=== PATIENT | female | born 1950 | race African-American/Black ===

== ENCOUNTER 2020-08-18 10:27 | Outpatient (REF) | payer MEDICARE, SELFPAY | END 2020-08-18 10:28 | disposition home or self-care (01) | LOC: HO.LAB 10:27 | PROVIDERS: Visit Provider Internal Medicine | DX: Z20.828 Contact with and (suspected) exposure to other viral communicable diseases (principal) | CPT/HCPCS: 36415; C9803; U0003 ==

== ENCOUNTER 2021-07-12 10:45 | Outpatient (REF) | payer MEDICARE, SELFPAY | END 2021-07-12 10:46 | disposition home or self-care (01) | LOC: HO.LAB 10:45 | PROVIDERS: PCP Family Medicine; Visit Provider Internal Medicine | DX: Z20.822 Contact with and (suspected) exposure to COVID-19 (principal) | CPT/HCPCS: C9803; U0003; U0005 ==

== ENCOUNTER 2021-11-21 09:49 | Outpatient (REF) | payer OTHER, SELFPAY ==
--- NOTE | ~2021-11-21 | XR_ITS ---
EXAMINATION: XR HAND, RIGHT XR HAND, LEFT CLINICAL INFORMATION: Rheumatoid arthritis. COMPARISON: None TECHNIQUE: 3 views of each hand. FINDINGS: RIGHT HAND: Osteopenia. Prominent cyst or chronic erosion of the distal scaphoid. There is mild narrowing of the radiocarpal and mid carpal joint. Cysts or chronic erosion of the proximal hamate and the ulnar aspect of the triquetrum. There is soft tissue swelling of the 3rd PIP joint and possibly the 2nd PIP joint. No significant or asymmetric joint space narrowing or active erosion. No suspicious soft tissue calcification. No fracture. LEFT HAND: Osteopenia. No definite erosions. Mild degenerative changes of the triscaphoid articulation, MCP and IP joints most prominently involving the 5th DIP joint with dorsal osteophyte. No suspicious soft tissue calcification. No fracture. XR/XR hand RT 2V IMPRESSION: Right hand: Degenerative cysts or chronic erosions of the carpus as described. There is soft tissue swelling particularly about the 3rd PIP joint with no active erosion. Osteopenia. Left hand: Mild degenerative changes and osteopenia with no active erosion or acute abnormality.
--- NOTE | ~2021-11-21 | XR_ITS ---
EXAMINATION: XR CHEST CLINICAL INFORMATION: The cardiac murmur COMPARISON: Previous chest x-ray September 2006 TECHNIQUE: 2 views of the chest were obtained. FINDINGS: The cardiac silhouette does not appear enlarged. The ascending thoracic aorta may be prominent. Hilar and mediastinal contours are otherwise unremarkable. The lungs are clear. There is no pleural effusion or pneumothorax. There is soft tissue calcification adjacent to the right greater tuberosity. Bony structures are otherwise unremarkable. XR/XR chest 2V IMPRESSION: Normal size cardiac silhouette. Question increasing prominence of the ascending thoracic aorta.
--- NOTE | ~2021-11-21 | XR_ITS ---
EXAMINATION: XR HAND, RIGHT XR HAND, LEFT CLINICAL INFORMATION: Rheumatoid arthritis. COMPARISON: None TECHNIQUE: 3 views of each hand. FINDINGS: RIGHT HAND: Osteopenia. Prominent cyst or chronic erosion of the distal scaphoid. There is mild narrowing of the radiocarpal and mid carpal joint. Cysts or chronic erosion of the proximal hamate and the ulnar aspect of the triquetrum. There is soft tissue swelling of the 3rd PIP joint and possibly the 2nd PIP joint. No significant or asymmetric joint space narrowing or active erosion. No suspicious soft tissue calcification. No fracture. LEFT HAND: Osteopenia. No definite erosions. Mild degenerative changes of the triscaphoid articulation, MCP and IP joints most prominently involving the 5th DIP joint with dorsal osteophyte. No suspicious soft tissue calcification. No fracture. XR/XR hand LT min 3V IMPRESSION: Right hand: Degenerative cysts or chronic erosions of the carpus as described. There is soft tissue swelling particularly about the 3rd PIP joint with no active erosion. Osteopenia. Left hand: Mild degenerative changes and osteopenia with no active erosion or acute abnormality.
[2021-11-21 11:36] LABS: MANUAL DIFF FLAG NO
[2021-11-21 11:54] LABS: Basophils Percent Auto 0.3 % (0-2); Eosinophils Absolute Auto 0.3 X10*3/uL (0.0-0.4); Eosinophils Percent Auto 2.7 % (0-4); Hematocrit 40.9 % (37.0-47.0); Hemoglobin 13.2 g/dl (12.0-16.0); Imm Gran Abs Auto 0.08 X10*3/uL (0.00-0.03); Imm Gran Pct Auto 0.8 % (0.0-0.4); Lymphocytes Percent Auto 30.8 % (20-40); Mean Corpuscular HGB Conc 32.3 g/dl (31.0-35.0); Mean Corpuscular Hemoglobin 26.2 pg (27.0-33.0); Mean Corpuscular Volume 81.2 fL (80.0-98.0); Mean Platelet Volume 10.1 fL (9.4-12.3); Monocytes Absolute Auto 0.8 X10*3/uL (0.1-1.2); Neutrophils Absolute Auto 5.6 x10*3/uL (2.0-8.3); Neutrophils Percent Auto 57.4 % (45-73); Platelet Count 236 X10*3/uL (160-400); Red Blood Count 5.04 X10*6/uL (4.20-5.50); Red Cell Distribution Width 14.6 % (11.0-16.0); White Blood Count 9.8 X10*3/uL (4.8-10.8)
[2021-11-21 12:17] LABS: Alanine Aminotransferase 18 U/L (0-31); Albumin Level 4.1 g/dL (3.5-5.0); Alkaline Phosphatase 130 U/L (39-117); Anion Gap 14 (12-20); Aspartate Amino Transferase 16 U/L (5-31); Bilirubin Total 0.3 mg/dL (0.0-1.0); Blood Urea Nitrogen 17 mg/dL (9-16); C Reactive Protein 2.28 mg/dL (< or = 0.50); Calcium 10.4 mg/dL (8.4-10.2); Carbon Dioxide 26 mmol/L (22-29); Chloride 104 mmol/L (96-108); Estimated Glomerular Filt Rate > 60; Glucose Random 97 mg/dL (60-115); Potassium 4.3 mmol/L (3.3-5.1); Sodium 140 mmol/L (135-145); Total Protein 6.7 g/dL (6.5-8.0)
[2021-11-21 12:38] LABS: Erythrocyte Sedimentation Rate 18 MM/HR (0-20)
[2021-11-21 13:45] LABS: Creatinine Urine 99.34 mg/dL; Microalbum/Creatinine Ratio Ur 17.1 ug/mg cr
[2021-11-22 04:15] LABS: HBS Num1 29.06 mIU/mL (0-7.99); HBc Num1 1.92 S/CO (0.00-0.79); ~Hepatitis B Surface Antibody REACTIVE (Nonreactive)
[2021-11-22 04:24] LABS: HBsAGNum1 0.17 S/CO (0.00-0.99); Hepatitis A Antibody IgM 0.35 Index (0-0.79); Hepatitis B Surface Antigen Negative (Negative); ~Hepatitis A Antibody IgM Nonreactive (Nonreactive); ~Hepatitis C Antibody Nonreactive (Nonreactive)
[2021-11-22 05:05] LABS: HBc Num2 1.96 S/CO; Hepatitis B Core Antibody Reactive (Nonreactive)
[2021-11-23 15:07] LABS: TS Negative Control Passed; TS Panel A 27; TS Panel B 21; TS Positive Control Passed; TSpotTB Positive (Negative)
[2021-11-23 16:05] LABS: Cyclic Citrullinated Peptide >250 UNITS
== END 2021-11-21 09:50 | disposition home or self-care (01) ==
LOC: HO.LAB 09:49
PROVIDERS: PCP Family Medicine; Visit Provider Internal Medicine Rheumatology
DX: M05.9 Rheumatoid arthritis with rheumatoid factor, unspecified (principal); R00.1 Bradycardia, unspecified; Z79.899 Other long term (current) drug therapy
CPT/HCPCS: 36415; 71046; 73120; 73130; 80053; 82043; 85025; 85652; 86140; 86200; 86481; 86704; 86706; 86709; 86803; 87340; 99202

== ENCOUNTER 2021-12-07 10:57 | Outpatient (REF) | payer OTHER, SELFPAY ==
--- NOTE | ~2021-12-07 | XR_ITS ---
EXAMINATION: XR KNEE, RIGHT XR SHOULDER, RIGHT CLINICAL INFORMATION: Rheumatoid arthritis with pain. COMPARISON: None TECHNIQUE: Right knee 4 views. Right shoulder 4 views. FINDINGS: RIGHT KNEE: There is minimal loss of the tricompartment joint space without any bony erosive changes, loose bodies or joint effusion. A small anterior superior patellar enthesophyte is seen. The soft tissues are normal. RIGHT SHOULDER: The glenohumeral joint space and the AC joint space are reduced. No bony erosive changes, acute fracture or dislocation. There is a soft tissue calcification adjacent to the right greater tuberosity, likely calcific bursitis. The soft tissues are normal. XR/XR shoulder RT min 2V IMPRESSION: Minimal early degenerative changes of the right knee. Likely calcific bursitis of the right shoulder with mild degenerative changes of the right AC joint. No visible acute fracture or dislocation seen.
--- NOTE | ~2021-12-07 | XR_ITS ---
EXAMINATION: XR KNEE, RIGHT XR SHOULDER, RIGHT CLINICAL INFORMATION: Rheumatoid arthritis with pain. COMPARISON: None TECHNIQUE: Right knee 4 views. Right shoulder 4 views. FINDINGS: RIGHT KNEE: There is minimal loss of the tricompartment joint space without any bony erosive changes, loose bodies or joint effusion. A small anterior superior patellar enthesophyte is seen. The soft tissues are normal. RIGHT SHOULDER: The glenohumeral joint space and the AC joint space are reduced. No bony erosive changes, acute fracture or dislocation. There is a soft tissue calcification adjacent to the right greater tuberosity, likely calcific bursitis. The soft tissues are normal. XR/XR knee RT 4V IMPRESSION: Minimal early degenerative changes of the right knee. Likely calcific bursitis of the right shoulder with mild degenerative changes of the right AC joint. No visible acute fracture or dislocation seen.
== END 2021-12-07 10:58 | disposition home or self-care (01) ==
LOC: HO.XRAY 10:57
PROVIDERS: PCP Family Medicine; Visit Provider Internal Medicine Rheumatology
DX: M05.9 Rheumatoid arthritis with rheumatoid factor, unspecified (principal); M85.80 Other specified disorders of bone density and structure, unspecified site; R76.12 Nonspecific reaction to cell mediated immunity measurement of gamma interferon antigen response without active tuberculosis; I10 Essential (primary) hypertension; F41.9 Anxiety disorder, unspecified; Z79.82 Long term (current) use of aspirin; Z79.52 Long term (current) use of systemic steroids; Z79.899 Other long term (current) drug therapy
CPT/HCPCS: 73030; 73564; Q3014

== ENCOUNTER 2022-01-15 09:32 | Outpatient (REF) | payer OTHER, SELFPAY ==
[2022-01-15 11:25] LABS: MANUAL DIFF FLAG NO
[2022-01-15 11:47] LABS: Basophils Percent Auto 0.2 % (0-2); Eosinophils Absolute Auto 0.2 X10*3/uL (0.0-0.4); Eosinophils Percent Auto 2.1 % (0-4); Hematocrit 43.1 % (37.0-47.0); Hemoglobin 13.8 g/dl (12.0-16.0); Imm Gran Abs Auto 0.07 X10*3/uL (0.00-0.03); Imm Gran Pct Auto 0.8 % (0.0-0.4); Lymphocytes Absolute Auto 3.6 X10*3/uL (1.2-4.9); Lymphocytes Percent Auto 42.5 % (20-40); Mean Corpuscular Hemoglobin 26.4 pg (27.0-33.0); Mean Corpuscular Volume 82.4 fL (80.0-98.0); Mean Platelet Volume 10.7 fL (9.4-12.3); Monocytes Absolute Auto 0.7 X10*3/uL (0.1-1.2); Monocytes Percent Auto 7.7 % (2-11); Neutrophils Percent Auto 46.7 % (45-73); Platelet Count 238 X10*3/uL (160-400); Red Blood Count 5.23 X10*6/uL (4.20-5.50); Red Cell Distribution Width 15.9 % (11.0-16.0); White Blood Count 8.6 X10*3/uL (4.8-10.8)
[2022-01-15 12:14] LABS: Alanine Aminotransferase 24 U/L (0-31); Aspartate Amino Transferase 18 U/L (5-31); C Reactive Protein 0.71 mg/dL (< or = 0.50); Estimated Glomerular Filt Rate > 60
[2022-01-15 12:23] LABS: Erythrocyte Sedimentation Rate 8 MM/HR (0-20)
== END 2022-01-15 09:33 | disposition home or self-care (01) ==
LOC: HO.LAB 09:32
PROVIDERS: PCP Family Medicine; Visit Provider Internal Medicine Rheumatology
DX: M05.9 Rheumatoid arthritis with rheumatoid factor, unspecified (principal); R76.12 Nonspecific reaction to cell mediated immunity measurement of gamma interferon antigen response without active tuberculosis; Z79.899 Other long term (current) drug therapy
CPT/HCPCS: 36415; 82565; 84450; 84460; 85025; 85652; 86140; 99212

== ENCOUNTER → 2022-02-16 10:05 | Outpatient (REF) | payer OTHER, SELFPAY ==
--- NOTE | 2022-02-16 10:48 | CA_ITS ---
Transthoracic Echocardiogram Patient (Last, First, Middle): Lotus Schwartz, Gender: Female Date of : 1950 Age: 71 Procedure Date: 02/16/2022 Procedure Type: Transthoracic Echocardiogram Location: OP Height: 152.4 cm Weight: 54.43 kg BSA: 1.50 m2 Heart Rate: 70 bpm BP: 132 / 60 mmHg Manager Assessment: SB Referring MD: Rc Schwab MD Symptoms: R01.1 - Cardiac murmur, unspecified Study Quality: Adequate ECG Rhythm: Sinus Conclusions: - Normal left ventricular size and systolic function. There is normal left ventricular wall thickness. The visually estimated ejection fraction is between 60-65%. - E/E prime ratio is between 8 and 15 consistent with indeterminate filling pressures. - Normal right ventricular cavity size and systolic function. - There is severe aortic valve stenosis. The peak aortic velocity is 4.38 m/s. The mean gradient is 45 mmHg. - There is mild dilatation of the ascending aorta measuring 3.60 cm. Findings Left Ventricle Normal left ventricular size and systolic function. There is normal left ventricular wall thickness. The visually estimated ejection fraction is between 60-65%. There is no evidence of regional wall motion abnormalities. Diastolic function is indeterminate on the basis of available data. E/E prime ratio is between 8 and 15 consistent with indeterminate filling pressures. There is mild septal asymmetric hypertrophy. Right Ventricle Normal right ventricular cavity size and systolic function. Atria The left atrium is normal in size. The right atrium is normal in size. Aortic Valve There is a normal trileaflet aortic valve. There is moderate calcification of the aortic valve. There is moderate thickening of the aortic valve. There is severe aortic valve stenosis. The peak aortic velocity is 4.38 m/s. The mean gradient is 45 mmHg. There is no aortic valve regurgitation. Mitral Valve The mitral valve appears normal. There is no mitral valve regurgitation. There is no mitral valve stenosis. Pulmonic Valve Normal pulmonic valve structure and function. There is trace pulmonic valve regurgitation. Tricuspid Valve Normal tricuspid valve structure and function. There is mild tricuspid valve regurgitation. Normal right atrial pressure. There is no evidence of pulmonary hypertension. Great Vessels There is mild dilatation of the ascending aorta measuring 3.60 cm. The visualized portions of the pulmonary artery and branches are normal. Venous The inferior vena cava is normal in size and collapses greater than 50% with inspiration. Pericardium/Pleural There is no evidence of pericardial effusion. Measurements 2D Linear Measurements IVSd: 0.64 0.6-0.9/0.6-1.0 cm LVIDd: 4.30 3.9-5.3/4.2-5.9 cm LVIDd Index: 2.87 2.4-3.2/2.2-3.1 cm/m2 LVIDs: 3.04 2.0-3.6 cm LVPWd: 0.63 0.7-1.1 cm LA Diam: 2.80 2.7-3.8/3.0-4.0 cm LAIDs Index: 1.87 1.5-2.3 cm/m2 LV Mass: 97.42 67-162/88-224 g LV Mass Index: 64.95 43-95/49-115 g/m2 LVOT Diam: 1.80 3.0+(-)1.3 cm 2D Systolic Function EF 4C: 54.60 >55% EF 2C: 75.70 >55% EF BiP: 67.40 >55% Mitral Valve MV Pk E: 0.61 MV PK A: 0.94 MV Decel Time: 325.00 E/A: 0.60 E'Lateral: 7.51 E'Medial: 4.13 E/E' Med: 14.70 E/E' Lat: 8.10 PHT: 95.00 MVA PHT: 2.32 Decel [place]: 1.87 Aortic Valve AoV Pk Todd: 4.38 AoV Mn Todd: 3.18 AoV VTI: 0.94 AoV Pk Grad: 77.00 Aov Mn Grad: 45.00 ADELIA Cont.VTI: 0.57 LVOT LVOT Pk Todd: 0.85 LVOT Mn Todd: 0.63 LVOT VTI: 0.21 LVOT Pk Grad: 3.00 LVOT Mn Grad: 2.00 LVOT Diam: 1.80 LVOT Area: 2.54 Diastolic Function MV Pk E: 0.61 MV Pk A: 0.94 E/A: 0.60 E'Medial: 4.13 E/E' Med: 14.70 E' Laterial: 7.51 E/E' Lat: 8.10 Right Ventricle TAPSE (mm): 15.70 TVS' Todd: 8.90 Tricuspid Valve TR Pk Todd: 2.39 TR Pk Grad: 23.00 RA Press: 3.00 RVSP: 26.00 Great Vessels Aorta Sinus of Valsalva: 3.20 2.0-3.5 cm Ao Asc: 3.60 2.1-3.4 cm Pulmonary Valve PV Pk Todd: 0.77 Peak PV Grad: 2.00 Updated in Other Vendor System with Status of Final Rell Venegas MD electronically signed on 02/17/2022 9:28:56 PM with status of Final
== END ==
LOC: HO.CARD 10:05
PROVIDERS: PCP Family Medicine; Visit Provider Internal Medicine Rheumatology
DX: R01.1 Cardiac murmur, unspecified (principal)
CPT/HCPCS: 93306

== ENCOUNTER → 2022-03-28 08:34 | Outpatient (BNVA) | payer OTHER, SELFPAY | PROVIDERS: PCP Family Medicine; Visit Provider Internal Medicine Rheumatology | DX: M05.9 Rheumatoid arthritis with rheumatoid factor, unspecified (principal); Z22.7 Latent tuberculosis; Z55.0 Illiteracy and low-level literacy; Z79.899 Other long term (current) drug therapy | CPT/HCPCS: 99212 ==

== ENCOUNTER → 2022-04-10 08:31 | Outpatient (BNVA) | payer OTHER, SELFPAY | PROVIDERS: PCP Family Medicine; Referring Provider Internal Medicine Rheumatology; Visit Provider Internal Medicine | DX: I35.0 Nonrheumatic aortic (valve) stenosis (principal) | CPT/HCPCS: 93005; 99202 ==

== ENCOUNTER → 2022-11-27 10:46 | Outpatient (BNVA) | payer OTHER, SELFPAY | PROVIDERS: PCP Family Medicine; Visit Provider Internal Medicine Rheumatology | DX: M05.9 Rheumatoid arthritis with rheumatoid factor, unspecified (principal); I35.0 Nonrheumatic aortic (valve) stenosis; Z22.7 Latent tuberculosis | CPT/HCPCS: 99212 ==

== ENCOUNTER → 2023-02-22 09:39 | Outpatient (REF) | payer OTHER, SELFPAY ==
--- NOTE | 2023-02-22 09:41 | CA_ITS ---
Transthoracic Echocardiogram Patient (Last, First, Middle): Ltous Schwartz, Gender: Female Date of : 1950 Age: 72 Procedure Date: 02/22/2023 Procedure Type: Transthoracic Echocardiogram Location: OP Height: 152.4 cm Weight: 52.16 kg BSA: 1.48 m2 Heart Rate: bpm BP: 110 / 70 mmHg Metal Pourer: TO Referring MD: Elliott Orellana MD Abrasive Coating Machine Operator: Hunter Greenwood MD Symptoms: I35.0 - Nonrheumatic aortic (valve) stenosis Study Quality: Adequate ECG Rhythm: Sinus Conclusions: - 1. Critical aortic stenosis with mean gradient of 63 mmHg with valve area of 0.44 centimeters sq 2. Normal LV systolic function with LVEF of 60 65% with impaired relaxation filling pattern 3. Upper limits of normal ascending aortic size 4. Normal RV systolic pressure 5. No gross pericardial effusion Findings Left Ventricle Normal left ventricular size, thickness, and systolic function. The visually estimated ejection fraction is between 60-65%. Spectral Doppler is indicative of an impaired relaxation filling pattern. E/E prime ratio is between 8 and 15 consistent with indeterminate filling pressures. There is mild septal asymmetric hypertrophy. Right Ventricle Normal right ventricular cavity size and systolic function. Atria The left atrium is normal in size. There is no evidence of interatrial shunt. The right atrium is normal in size. Aortic Valve There is moderate calcification of the aortic valve. There is moderate thickening of the aortic valve. There is severe aortic valve stenosis. The peak aortic gradient is 98 mmHg.The mean gradient is 63 mmHg. The aortic valve area is 0.44 cm2. There is no aortic valve regurgitation. Mitral Valve There is moderate anterior and mild posterior mitral leaflet thickening. There is no mitral valve regurgitation. There is no mitral valve stenosis. Pulmonic Valve The pulmonic valve is likely normal. There is trace pulmonic valve regurgitation. Tricuspid Valve Normal tricuspid valve structure. There is mild tricuspid valve regurgitation. The right ventricular systolic pressure is normal. The right ventricular systolic pressure is 32 mmHg. Normal right atrial pressure. There is no evidence of pulmonary hypertension. Great Vessels The pulmonary artery was not well visualized. Venous The inferior vena cava is normal in size and collapses greater than 50% with inspiration. Pericardium/Pleural There is no evidence of pericardial effusion. Prior Study Comparison Changes noted compared to prior study dated: 02/16/2022. Aortic stenosis severity is worse, to critical range Measurements 2D Linear Measurements IVSd: 1.22 0.6-0.9/0.6-1.0 cm LVIDd: 4.23 3.9-5.3/4.2-5.9 cm LVIDd Index: 2.86 2.4-3.2/2.2-3.1 cm/m2 LVIDs: 2.76 2.0-3.6 cm LVPWd: 0.77 0.7-1.1 cm LA Diam: 2.60 2.7-3.8/3.0-4.0 cm LAIDs Index: 1.76 1.5-2.3 cm/m2 LV Mass: 171.31 67-162/88-224 g LV Mass Index: 115.75 43-95/49-115 g/m2 LVOT Diam: 1.80 3.0+(-)1.3 cm 2D Systolic Function EF 4C: 57.60 >55% EF 2C: 69.50 >55% EF BiP: 65.20 >55% Mitral Valve MV Pk E: 0.55 MV PK A: 0.93 MV Decel Time: 286.00 E/A: 0.60 E'Lateral: 7.62 E'Medial: 4.79 E/E' Med: 11.50 E/E' Lat: 7.30 PHT: 84.00 MVA PHT: 2.62 Decel [place]: 1.93 Aortic Valve AoV Pk Todd: 4.95 AoV Mn Todd: 3.79 AoV VTI: 1.20 AoV Pk Grad: 98.00 Aov Mn Grad: 63.00 ADELIA Cont.VTI: 0.44 LVOT LVOT Pk Todd: 0.79 LVOT Mn Todd: 0.54 LVOT VTI: 0.21 LVOT Pk Grad: 3.00 LVOT Mn Grad: 1.00 LVOT Diam: 1.80 LVOT Area: 2.54 Diastolic Function MV Pk E: 0.55 MV Pk A: 0.93 E/A: 0.60 E'Medial: 4.79 E/E' Med: 11.50 E' Laterial: 7.62 E/E' Lat: 7.30 Right Ventricle TAPSE (mm): 17.90 TVS' Todd: 9.30 Tricuspid Valve TR Pk Todd: 2.69 TR Pk Grad: 29.00 RA Press: 3.00 RVSP: 32.00 Great Vessels Aorta Sinus of Valsalva: 3.17 2.0-3.[address] [place]: 2.24 1.7-3.4 cm Ao Asc: 3.50 2.1-3.4 cm Updated in Other Vendor System with Status of Final Hunter Greenwood MD electronically signed on 02/23/2023 3:05:28 PM with status of Final
== END ==
LOC: HO.CARD 09:39
PROVIDERS: PCP Family Medicine; Visit Provider Internal Medicine
DX: I35.0 Nonrheumatic aortic (valve) stenosis (principal)
CPT/HCPCS: 93306

== ENCOUNTER → 2023-02-22 09:41 | Outpatient (BNV) | payer OTHER, SELFPAY | PROVIDERS: PCP Family Medicine; Visit Provider Internal Medicine Cardiovascular Disease | DX: I35.0 Nonrheumatic aortic (valve) stenosis (principal) | CPT/HCPCS: 93306 ==

== ENCOUNTER 2023-03-05 09:46 | Outpatient (AMB) | payer OTHER, SELFPAY ==
--- NOTE | 2023-03-05 09:51 | MHC.OFFVIS ---
Intake Vital Signs 03/05/23 09:52 Height 4 ft 11 in Weight 123 lb 0.287 oz BMI 24.8 BP 130/90 H Blood Pressure Location Lt brachial Position Sitting Pulse 96 Intake Visit Reasons: follow up echo Intake Note: follow up echo w/ EKG Optical Technician Required: Yes Optical Technician Language: Crew Caller Name: Deyanira [phone] Accompanied by: MACHINE ADJUSTER LEADER Allergies No Known Allergies Allergy (Verified 03/05/23 09:54) Medication List - Last Reconciled 03/05/23 by Elliott Orellana MD amlodipine 5 mg PO DAILY calcium carbonate-vitamin D3 500 mg-5 mcg (200 unit) (Oyster Shell Calcium-Vitamin D3) 1 tab PO BID cyclobenzaprine 10 mg PO BEDTIME diclofenac sodium 1% (Voltaren Arthritis Pain) 2 grams topical QID ibuprofen 400 mg PO Q8H PRN isoniazid 300 mg PO DAILY losartan-hydrochlorothiazide 50-12.5 mg 1 tab PO DAILY prednisone 5 mg PO BID HPI HPI Comments History of Present Illness Details Patient returns for follow-up regarding aortic stenosis. Recent echocardiograms have shown severe aortic stenosis. Patient herself denies any specific cardiac complaints. Nothing specifically concerning like shortness of breath or angina or dizziness or syncopal episodes. In the past, there was mention of shortness of breath but denies it today. Discussed using mill house supervisor. Throughout the encounter, she has essential laughing, and hence did not know how much she actually understands. There is mention of schizophrenia in the PCP note. MACHINE ADJUSTER LEADER is here with the patient. 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 Mother No problems noted. Social History Housing: Apartment Are you a primary human services care specialist to a significant other at home: No Do you presently have visiting nurse or other home services: Yes 75 years or older and lives alone: No Alcohol intake: former Patient Tobacco Use Status: Former Tobacco user e-Cigarette/Vaping Use: Never Used service: No Current occupational status: disabled Review of Systems Const Denies weakness ENT Denies dizziness Card Denies chest pain, Denies chest pain with activity, Denies syncope, Denies rapid heart rate, Denies pedal edema, Denies edema, Denies leg edema, Denies lightheadedness, Denies palpitations, Denies dyspnea, Denies dyspnea on exertion and Denies orthopnea Resp Denies cough, Denies dyspnea and Denies dyspnea on exertion GI Denies hematochezia and Denies change in stool character Musc Denies abnormal gait, Denies muscle cramps, Denies muscle weakness, Denies numbness, Denies radiating pain into limb and Denies tingling Neuro Denies Abnormal speech present, Denies abnormal gait, Denies dizziness, Denies syncope, Denies numbness, Denies tingling and Denies weakness Endo Denies palpitations Physical Exam Vital Signs: Last Vital Signs Pulse 96 03/05/23 09:52 BP 130/90 H 03/05/23 09:52 BMI result Body Mass Index 24.8 Const General: comfortable and no acute distress Orientation/consciousness: patient oriented x3 HEENT Other: Unremarkable Head: Yes normal to inspection Neck Neck: Yes normal visual inspection Chest Chest palpation & inspection: normal inspection of the chest Resp Auscultation: clear to auscultation bilaterally Cardio Palpation: normal PMI Heart sounds: S1 normal heart sound present, S2 normal heart sound present, no gallops, Murmur heart sound present systolic III/ and at the right sternal border and no rubs GI Palpation (GI): Soft to palpation Back/Spine/Pelvis Other: unremarkable Skin General skin exam: no rashes or lesions noted Neuro General: patient oriented x3 Speech: No Abnormal speech present Extrem General: Yes normal to inspection Psych Mental Status: mental status grossly normal Office Procedures EKG Details: EKG with sinus rhythm at 96/Min; nonspecific ST-[place] changes; [place] [id number], Complete Assessment & Plan Assessment & Plan (1) Non-rheumatic aortic stenosis: Code(s): I35.0 - Nonrheumatic aortic (valve) stenosis Plan In the most recent echocardiogram, mean gradient across aortic valve 63 mm Hg. Peak of 98 mm Hg. Calculated aortic valve area of 0.44 sq cm. Preserved LVEF at 60-65%. Discussed this in great detail using mill house supervisor but do not believe the patient actually understands much. In the PCP's note, there is mention of chronic mental illness, schizophrenia. Hence that might be the reason for lack of comprehension. In fact, throughout the encounter, she was constantly laughing. Overall, difficult situation. Ideally, this needs cardiac catheterization and consideration of transcatheter valve replacement. However, due to mental illness and lack of comprehension, this is probably not going to be feasible. Will contact PCP about this as well. Otherwise, went over the symptoms from aortic stenosis with MACHINE ADJUSTER LEADER who came for the appointment. She seens to understand much better. She will contact us with ongoing concerns. We will schedule an appointment in 6 months time. At that time, we will repeat an echocardiogram. Orders: Orders CA echo transthoracic complete 6 Months I35.0 - Nonrheumatic aortic (valve) stenosis Medications: Changed From isoniazid 300 mg PO DAILY 30 tabs 8RF R76.12 - Nonspecific reaction to cell mediated immunity measurement of gamma interferon antigen response without active tuberculosis To isoniazid 300 mg PO DAILY R76.12 - Nonspecific reaction to cell mediated immunity measurement of gamma interferon antigen response without active tuberculosis Coding Level of Care Code Est Pt Level 4 (71953) Diagnoses Non-rheumatic aortic stenosis I35.0 CPT Codes EKG - CPT: 29597-[id number], Complete ([id number])
[2023-03-05 09:52] VITALS: BP 130/90; PULSE 96; BMI 24.8
== END 2023-03-05 10:17 | disposition home or self-care (01) ==
PROVIDERS: PCP Family Medicine; Visit Provider Internal Medicine
DX: I35.0 Nonrheumatic aortic (valve) stenosis (principal)
CPT/HCPCS: 93010; 99214

== ENCOUNTER → 2023-03-05 09:46 | Outpatient (BNVA) | payer OTHER, SELFPAY | PROVIDERS: PCP Family Medicine; Visit Provider Internal Medicine | DX: I35.0 Nonrheumatic aortic (valve) stenosis (principal); Z87.891 Personal history of nicotine dependence; Z79.52 Long term (current) use of systemic steroids; Z79.899 Other long term (current) drug therapy | CPT/HCPCS: 93005; 99212 ==

== ENCOUNTER 2023-03-07 09:41 | Outpatient (AMB) | payer OTHER, SELFPAY ==
--- NOTE | 2023-03-07 09:42 | MHC.OFFVIS ---
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: Yes Heating And Cooling Technician Name: Lawson ([id number]) Allergies No Known Allergies Allergy (Verified 03/07/23 09:45) Medication List - Last Reconciled 03/07/23 by Rc Schwab MD amlodipine 5 mg PO DAILY calcium carbonate-vitamin D3 500 mg-5 mcg (200 unit) (Oyster Shell Calcium-Vitamin D3) 1 tab PO BID cyclobenzaprine 10 mg PO BEDTIME diclofenac sodium 1% (Voltaren Arthritis Pain) 2 grams topical QID ibuprofen 400 mg PO TID PRN losartan-hydrochlorothiazide 50-12.5 mg 1 tab PO DAILY prednisone 5 mg PO BID HPI HPI Comments History of Present Illness Details The patient returns today by herself for evaluation of her rheumatoid arthritis. Today's visit is with the assistance of the iPad translating service. The fish inspector indicates he is not sure the patient really is understanding what she is being told. Mostly she is complaining of pain in the hands and the right foot. She brings in some pill packs that are labeled in macanese with prednisone and diclofenac. She says she takes them occasionally and the prednisone seems to be helpful but not the diclofenac 50 mg. She does not recall taking the isoniazid for her latent tuberculosis but she has been off and on it over the past year. She has no respiratory symptoms currently. She has been following with Cardiology about her critical aortic stenosis but so far has not dealt with the question of whether to do anything about it. When asked about that issue today she says there is nothing wrong with her heart because she feels fine. 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 Mother No problems noted. Social History Housing: Apartment Are you a primary care aid to a significant other at home: No Do you presently have visiting nurse or other home services: Yes 75 years or older and lives alone: No Alcohol intake: former Patient Tobacco Use Status: Former Tobacco user e-Cigarette/Vaping Use: Never Used service: No Current occupational status: disabled Review of Systems Const Details: Negative for appetite change, weight change, fever, chills, malaise and fatigue Eyes Details: Negative for vision change, dry eyes,headaches and dizziness ENT Details: Negative for hearing change, tinnitus, oral ulcer, nose bleeds and oral dryness. Card Details: Negative chest pain, edema and syncope Resp Details: Negative for SOB, cough and wheezing GI Details: Negative indigestion/heartburn, nausea, abdominal pain, bowel changes, diarrhea, constipation and bloody stool. Psych Details: Negative for anxiety, depression and stress Endo Details: Negative for polyuria and polydypsia Ernst/Lymph Details: Negative for excessive bruising or bleeding. Physical Exam Vital Signs: Last Vital Signs Temp 97.9 F 03/07/23 09:43 Pulse 68 03/07/23 09:43 Resp 16 03/07/23 09:43 BP 116/80 03/07/23 09:43 Pulse Ox 98 03/07/23 09:43 Oxygen Delivery Method Room Air 03/07/23 09:43 BMI result Body Mass Index 25.0 APPEARANCE: Patient in no acute distress EYES no redness, pupils equal and reactive to light, eyelids normal.? No temporal artery redness, or swelling EARS:? It there is nol TMJ tenderness.? No swelling or redness in that region.? Otherwise ear normal, canal clear and tympanic membrane normal. NECK:? No thyromegaly or masses, no adenopathy, trachea midline. HEART:? Regulrar rhythm, S1-S2 heard, grade 3-4/6 systolic murmur radiating to the carotids.no rubs or gallops. LUNG:? Clear to percussion and auscultation ABD:? Normal bowel sounds, no organomegaly, masses or tenderness. Extremities: No peripheral edema. JOINT EXAM: Cervical Spine:.? Mild discomfort with rotation of 45 degrees or lateral flexion at 15 degrees.? No cervical muscle tenderness. Thoracic Spine:.? No scoliosis.? No tenderness on palpation. Lumbar Spine:.? Alignment normal.? Full range of motion without pain, no tenderness. Chest Wall:.? No tenderness, swelling, increased warmth or erythema. Hands:? Right:? Mild tenderness and enlargement at the thumb CMC joint.? Slight swelling and mild tenderness at the 5 MCP joints.? There is bony and soft tissue swelling of the thumb IP and the 2nd through 4th PIP joints.? The 2nd 3rd PIP joints have mild tenderness.? There is no thenar atrophy, flexor tendon triggering or sensory loss.? Left: Slight tenderness without swelling at the thumb CMC joint.? There is mild tenderness at the 1st 3 MCP with mild swelling.? The thumb IP and all the PIP's have mild bony enlargement; the 2nd through 4th have mild tenderness.? There is no flexor tendon triggering, thenar atrophy or sensory loss. Wrists:? Mild pain with flexion or extension at at 75 degrees with some mild tenderness and slight swelling bilaterally. Elbows:? Right:? ? The elbow lacks about 10 degrees of full extension.? ? There is minimal soft tissue swelling over the elbow and there is mild tenderness over the elbow joint.? There is no redness or warmth noted at the elbow.? Left:? Pain-free range of motion with no tenderness or swelling. Shoulders:? Right:? Mild ? Discomfort with extremes of range of motion.? There is minimal anterior tenderness without adenopathy, swelling or abductor weakness.? Left:? Mild discomfort with extremes of motion with some mild anterior tenderness without adenopathy, soft tissue swelling, increased warmth or erythema. Hips:? Full range of motion without pain. Hip bursa:? No tenderness. Knees:?? Right:?? Mild pain with extremes of range of motion with some slight medial tenderness without redness or effusion.?? Left:? ? Slight patellofemoral crepitus with normal pain-free range of motion.? No swelling or tenderness. Ankles: both ankles have mild medial lateral tenderness without swelling.? There is pain with inversion and eversion. Feet:? Right: There is mild swelling over the 1st 2 MCP joints in these have mild tenderness. There is some slight tenderness in the instep as well without swelling. Left: Normal pain-free range of motion with mild tenderness in the instep and MTP regions.? No swelling or redness. ? Results Reviewed Results Reviewed: Laboratory Tests 01/15/22 11:24 Creatinine 0.76 AST 18 ALT 24 C-Reactive Protein 0.71 H Assessment & Plan Assessment & Plan (1) Aortic stenosis, severe: Comment: 02/2021 echo: gradient=45 mm Code(s): I35.0 - Nonrheumatic aortic (valve) stenosis (2) Latent tuberculosis by blood test: Comment: 11/2021 - INH started Code(s): Z22.7 - Latent tuberculosis (3) Seropositive rheumatoid arthritis: Comment: RF, CCP Ab positive; Onset about 2020 methotrexate started 01/31- patient stop taking it she did not think it was helping. It is unclear whether she took it very often. She is illiterate and did not understand how to take it. She would not let anybody monitor her medications in the home. Mostly treatment since then has been with prednisone at a low dose. Code(s): M05.9 - Rheumatoid arthritis with rheumatoid factor, unspecified Plan The patient continues with active seropositive rheumatoid arthritis. She medicates herself with prednisone she obtained from [place]. I think that is probably thebest we can do in terms of treating her RA. A more complicated DMARD regimen I do not think could be managed by her. She is illiterate and does not trusted anybody that could monitor her medications so it might be more dangerous for her to have more prescriptions that she could mishandle. She also was not reliable by coming to the office and getting lab work. So I did prescribe prednisone 5 mg b.i.d. and she could continue with 400mg t.i.d. of the ibuprofen if needed for pain. Additionally she remains with critical aortic stenosis but so far is asymptomatic. She does not seem to be realistically able to engage the decision making process that would enable her to have further workup for that: cardiac catheterization and perhaps aortic valve replacement. I will reschedule her back for 4-5 months. Medications: Changed From ibuprofen 400 mg PO Q8H PRN M05.9 - Rheumatoid arthritis with rheumatoid factor, unspecified To ibuprofen take with food 400 mg PO TID PRN 90 tabs 3RF pain M05.9 - Rheumatoid arthritis with rheumatoid factor, unspecified Refilled prednisone 5 mg PO BID 60 tabs 3RF M05.9 - Rheumatoid arthritis with rheumatoid factor, unspecified Coding Level of Care Code Est Pt Level 3 (51837) Diagnoses Aortic stenosis, severe I35.0 Latent tuberculosis by blood test Z22.7 Seropositive rheumatoid arthritis M05.9
[2023-03-07 09:43] VITALS: BP 116/80; PULSE 68; RESP 16; TEMP 36.6; O2SAT 98; BMI 25.0
== END 2023-03-07 10:14 | disposition home or self-care (01) ==
PROVIDERS: PCP Family Medicine; Visit Provider Internal Medicine Rheumatology
DX: M05.79 Rheumatoid arthritis with rheumatoid factor of multiple sites without organ or systems involvement (principal); I35.0 Nonrheumatic aortic (valve) stenosis; Z22.7 Latent tuberculosis
CPT/HCPCS: 99213

== ENCOUNTER → 2023-03-07 09:41 | Outpatient (BNVA) | payer OTHER, SELFPAY | PROVIDERS: PCP Family Medicine; Visit Provider Internal Medicine Rheumatology | DX: M05.9 Rheumatoid arthritis with rheumatoid factor, unspecified (principal); I35.0 Nonrheumatic aortic (valve) stenosis; Z22.7 Latent tuberculosis | CPT/HCPCS: 99212 ==

== ENCOUNTER 2023-04-27 21:19 | Emergency (ER) | payer OTHER, SELFPAY ==
[2023-04-27 21:24] VITALS: BP 162/102; PULSE 92
[2023-04-27 21:33] VITALS: BP 160/102; PULSE 92
[2023-04-27 21:34] VITALS: BP 140/82; PULSE 88; RESP 18; TEMP 36.5; O2SAT 96; BMI 23.4
[2023-04-28 01:48] VITALS: BP 170/89; PULSE 64; RESP 18; TEMP 36.7; O2SAT 97
--- NOTE | 2023-04-28 01:49 | ED.GENADULT ---
HPI - General Adult General Chief complaint: General Medical Stated complaint: htn Time Seen by Provider: 04/28/23 01:48 Source: patient Mode of arrival: EMS Limitations: language barrier (Patient speaks [place] only, translator and interpreter used) History of Present Illness HPI narrative: 72-year-old female with a history of anxiety, chronic mental illness, hypertension, lung schizophrenia, seropositive rheumatoid arthritis, with severe aortic stenosis who presents emergency department for evaluation of hypertension, dizzy and anxiety. The patient states that her blood pressure was high at home but she cannot tell me what her blood pressure readings were. Lightheaded as she was going to pass out, she states she felt nausea but no vomiting. She felt very anxious. Patient was concerned about her elevated blood pressure and called an ambulance. The patient denied fever, chills, rhinorrhea, sore throat, cough, chest pain, shortness of breath, Jeffery, change in bowel movements. She states she has chronic pain in her left shoulder secondary arthritis and takes prednisone 5 mg daily, she did not take her prednisone prior to coming to the emergency department. Related Data Home Medications Medication Instructions Recorded Confirmed cyclobenzaprine 10 mg tablet 10 mg PO BEDTIME 11/21/21 03/07/23 diclofenac sodium 1 % topical gel 2 g topical QID 11/21/21 03/07/23 (Voltaren Arthritis Pain) losartan 50 mg-hydrochlorothiazide 1 tab PO DAILY 11/21/21 03/07/23 12.5 mg tablet amlodipine 5 mg tablet 5 mg PO DAILY 03/28/22 03/07/23 calcium carbonate 500 mg-vitamin 1 tab PO BID 04/10/22 03/07/23 D3 5 mcg (200 unit) tablet (Oyster Shell Calcium-Vitamin D3) Previous Rx's Medication Instructions Recorded ibuprofen 400 mg tablet 400 mg PO TID PRN pain #90 tabs 03/07/23 prednisone 5 mg tablet 5 mg PO BID #60 tabs 03/07/23 Allergies Allergy/AdvReac Type Severity Reaction Status Date / Time No Known Allergies Allergy Verified 03/07/23 09:45 Review of Systems Review of Systems: Yes all other systems are reviewed and are negative PMFSH Past Medical History PMFSH Narrative: Social history: She denies tobacco, alcohol and drug use. 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 Mother No problems noted. Social History Social History Housing: Apartment Are you a primary healthcare science specialist to a significant other at home: No Do you presently have visiting nurse or other home services: Yes Alcohol intake: former Patient Tobacco Use Status: Former Tobacco user e-Cigarette/Vaping Use: Never Used Advance Directives: No Advance Directives Information Provided: Yes service: No Current occupational status: disabled Physical Exam ED Vital Signs: Vital Signs - 24 hr 04/27/23 21:34 04/28/23 01:48 Temperature 97.7 F 98.0 F Pulse Rate 88 64 Respiratory Rate 18 18 Blood Pressure 140/82 H 170/89 H Pulse Oximetry 96 97 Oxygen Delivery Method Room Air Room Air BMI result Body Mass Index 23.4 Vital signs reveal slight elevation of blood pressure 140/82 otherwise were unremarkable Exam: General: Awake, alert in no distress Head: Normocephalic, atraumatic EENT: PERRL, Lids normal, sclera normal, conjunctiva normal, nose normal , ears normal, throat without erythema or exudates Neck: Supple, no adenopathy, trachea midline and nontender Lung: breath sounds symmetric, no wheezing, rales or rhonchi Chest: symmetric movement, nontender Heart: regular rate and rhythm, normal S1, S2 no murmurs or rubs Abdomen: soft, non-tender, nondistended, normal bowel sounds Back: no vertebral tenderness, no CVAT Extremities: no deformities, moves all extremities symmetrically Skin: no rashes, no lesion, normal color and warmth Neuro: Awake, alert, oriented, normal speech, cranial nerves intact, moves all extremities symmetrically Psych: Pleasant, cooperative Medical Decision Making Medical Decision Making MDM Narrative: 72-year-old female with a history of anxiety, chronic mental illness, hypertension, lung schizophrenia, seropositive rheumatoid arthritis, with severe aortic stenosis who presents emergency department for evaluation of hypertension, dizzy and anxiety. The patient states that her blood pressure was high at home but she cannot tell me what her blood pressure readings were. Patient's vital signs here in the emergency department revealed distended mild elevation of blood pressure otherwise were unremarkable. Physical examination was unremarkable. [id number] Patient's blood pressure in the emergency department is unremarkable, at this time I do not think that she has had a stroke, myocardial infarction or has kidney disease is the cause of her hypertension therefore I did not order any blood work on her specially since her blood pressure is only slightly elevated here in the emergency department. Patient was advised to continue taking her blood pressure medication as prescribed by her doctor She was given prednisone 5 mg orally to help with her arthritis pain. She was given printed and verbal instructions and discharged home Differential Diagnosis Differential Diagnoses: The differential diagnosis associated with the presentation includes Differential diagnosis includes was not limited to stroke, myocardial infarction, kidney failure, essential hypertension, anxiety Chronic Conditions Patient?s care impacted by: Hypertension Discharge Plan Discharge Clinical Impression: Anxiety, Arthritis pain Hypertension Qualifiers: Hypertension type: primary hypertension Qualified Code(s): I10 - Essential (primary) hypertension Prescriptions: No Action calcium carbonate-vitamin D3 [Oyster Shell Calcium-Vit D3] 500 mg-5 mcg (200 unit) tablet 1 tab PO BID diclofenac sodium [Voltaren Arthritis Pain] 1 % gel 2 g topical QID Rx Instructions: apply to single elbow, wrist or hand; for hand includes palm/fingers/back of hand losartan-hydrochlorothiazide 50-12.5 mg tablet 1 tab PO DAILY cyclobenzaprine 10 mg tablet 10 mg PO BEDTIME amlodipine 5 mg tablet 5 mg PO DAILY ibuprofen 400 mg tablet 400 mg PO TID PRN (Reason: pain) Qty: 90 3RF Rx Instructions: take with food prednisone 5 mg tablet 5 mg PO BID Qty: 60 3RF
[2023-04-28] MEDS: predniSONE 5 MG TABLET PO (03:25)
== END 2023-04-28 03:57 | disposition home or self-care (01) ==
PROVIDERS: Emergency Provider Emergency Medicine Emergency Medical Services; PCP Family Medicine
DX: F41.1 Generalized anxiety disorder (principal); F43.0 Acute stress reaction; I10 Essential (primary) hypertension; R42 Dizziness and giddiness; Z79.899 Other long term (current) drug therapy; Z87.891 Personal history of nicotine dependence
CPT/HCPCS: 99284

== ENCOUNTER 2023-04-30 10:57 | Emergency (ER) | payer OTHER, SELFPAY ==
--- NOTE | ~2023-04-30 | CT_ITS ---
STUDY: Unenhanced CT of the head, facial bones and cervical spine INDICATION: Fall with facial trauma TECHNIQUE: Continuous helical imaging obtained through the head, facial bones and cervical spine without IV contrast. Reconstructed images performed in the coronal and sagittal planes. This CT examination was performed using dose optimization techniques as appropriate, variously including the following: *Automated exposure control *Adjustment of mA and/or kV according to patient size (this includes techniques or standardized protocols for targeted exams where dose is matched to indication/reason for exam; i.e. extremities or head) *Use of iterative reconstruction technique TOTAL EXAM DLP: 238 mGy-cm COMPARISON: No FINDINGS: Head: Mild atrophy. No intracranial hemorrhage, extra-axial fluid collections, fractures or soft tissue hematomas identified status post fall. Intraorbital structures are unremarkable. Mild right ethmoid, minimal right maxillary sinus disease is present. Moderate left sinus disease, underlying polyp versus retention cyst not excluded. Remaining sinuses and mastoids are clear. Bony structures are intact. No soft tissue hematomas Facial bones: Tiny cortical bony lucency identified spanning the superior right orbital wall but no associated soft tissue swelling, likely nonacute. Orbital, maxillary meza, zygomatic arches, mandible and maxilla, nasal bones and anterior nasal spine are otherwise intact. Mild temporomandibular joint space narrowing. Soft palate hardware. Unremarkable parotid and submandibular glands. No pathologic lymphadenopathy. Nasopharynx, oropharynx and hypopharyngeal and laryngeal structures are unremarkable. Cervical spine: Cervical lordotic straightening. Mild degenerative spurring. No fracture or traumatic subluxation. Odontoid is intact, posterior elements are aligned and no prevertebral soft tissue swelling. No significant spinal canal or neural foraminal narrowings. Unremarkable thyroid. Mild increased markings lung apices. CT/CT cervical spine wo IV con IMPRESSION: No acute intracranial or cervical spine pathology status post trauma. No definite acute posttraumatic facial findings. Thin bony lucency superior right orbital wall likely nonacute in the absence of associated soft tissue swelling. Correlate clinically and with past history. Sinus disease as described.
[2023-04-30 11:06] VITALS: BP 150/105; PULSE 84; O2SAT 96
[2023-04-30 11:07] VITALS: BP 162/77; PULSE 82; RESP 18; TEMP 36.9; O2SAT 96; BMI 23.5
--- NOTE | 2023-04-30 11:16 | ED_ITS ---
HPI - Fall General Chief Complaint: Fall Stated Complaint: FALL W/L EYEBROW/CHEEK/NOSE LAC,+CCOLLAR Time Seen by Provider: 04/30/23 11:01 Source: patient, EMS, old records reviewed and crime laboratory analyst Mode of arrival: EMS Limitations: no limitations History of Present Illness HPI Narrative: 72 yo Arabic speaking female with history of severe aortic stenosis, rheumatoid arthritis, latent TB on isoniazid, anxiety, HTN, chronic mental illness who presents to the ER from home via EMS for evaluation of a mechanical fall where she tripped over the step to her front porch and fell onto her face. INPATIENT SERVICES DIRECTOR at home heard her fall and reports that she was awake but not verbal for a few seconds when she ran to her. She sustained some abrasions to her face and head. She denies any lightheaded, dizziness, chest pain, SOB prior to her fall. She does not use a walker or cane to walk. She has not fallen in years. MD complaint: fall Onset (ago): minute(s) Fall from: standing Fall witnessed: no Place fall occurred: home Loss of consciousness: none Prolonged down time: no Symptoms prior to fall: none Context: tripped/slipped Location of injury: head and face Severity: moderate Quality: aching Associated symptoms (after fall): headache and neck pain Related Data Home Medications Medication Instructions Recorded Confirmed cyclobenzaprine 10 mg tablet 10 mg PO BEDTIME 11/21/21 03/07/23 diclofenac sodium 1 % topical gel 2 g topical QID 11/21/21 03/07/23 (Voltaren Arthritis Pain) losartan 50 mg-hydrochlorothiazide 1 tab PO DAILY 11/21/21 03/07/23 12.5 mg tablet amlodipine 5 mg tablet 5 mg PO DAILY 03/28/22 03/07/23 calcium carbonate 500 mg-vitamin 1 tab PO BID 04/10/22 03/07/23 D3 5 mcg (200 unit) tablet (Oyster Shell Calcium-Vitamin D3) Previous Rx's Medication Instructions Recorded ibuprofen 400 mg tablet 400 mg PO TID PRN pain #90 tabs 03/07/23 prednisone 5 mg tablet 5 mg PO BID #60 tabs 03/07/23 Allergies Allergy/AdvReac Type Severity Reaction Status Date / Time No Known Allergies Allergy Verified 04/30/23 12:24 Review of Systems Review of Systems: Yes all other systems are reviewed and are negative PMFSH Past Medical History Medical History Chronic mental illness Schizophrenia 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 Mother No problems noted. Social History Social History Housing: Apartment Are you a primary residential care officer to a significant other at home: No Do you presently have visiting nurse or other home services: Yes Alcohol intake: former Patient Tobacco Use Status: Former Tobacco user e-Cigarette/Vaping Use: Never Used Advance Directives: No Advance Directives Information Provided: Yes service: No Current occupational status: disabled Physical Exam Vital Signs: Vital Signs: Last Vital Signs Temp 98.4 F 04/30/23 11:07 Pulse 82 04/30/23 11:07 Resp 18 04/30/23 11:07 BP 162/77 H 04/30/23 11:07 Pulse Ox 96 04/30/23 11:07 O2 Del Method Room Air 04/30/23 11:07 BMI result Body Mass Index 23.5 Appearance: Alert. Oriented X3. No acute distress. Head: normocephalic, superficial abrasion to the left forehead 1x1.5cm with associated swelling Eyes: Pupils equal, round and reactive to light. ENT: Pharynx normal. No tonsillar swelling or exudate. Neck: Normal inspection. Neck supple. CVS: Normal heart rate and rhythm. Pulses normal. +harsh systolic blowing murmur Respiratory: No respiratory distress. Breath sounds normal. Abdomen: Soft and nontender. +BS x4 Skin: Skin warm and dry. Normal skin color. Normal skin turgor. No rashes. Extremities: No lower extremity edema. No joint swelling. Normal ROM of the bilateral knees, no swelling or tenderness. Normal ROM of bilateral shoulders without tenderness. Neuro/psych: Oriented X 3. No motor deficit. No sensory deficit. CN II-XII intact. Normal speech and cognition. Medical Decision Making Medical Decision Making MDM Narrative: 72 yo Arabic speaking female with history of severe aortic stenosis, rheumatoid arthritis, latent TB on isoniazid, anxiety, HTN, chronic mental illness who presents to the ER from home via EMS for evaluation of a mechanical fall where she tripped over the step to her front porch and fell onto her face. No LOC. No preceding lightheadedness or dizziness. VSS on arrival. Exam w/ superficial abrasions to forehead and face. Not on anticoagulation and no LOC. CT scans of the head/neck/facial bones show no acute fractures or ICH. C-collar removed and no midline tenderness, normal ROM. She feels well and would like to go home. She is steady on her feet without assistance. Comfortable w/ discharge home with her INPATIENT SERVICES DIRECTOR, plan for outpatinet follow up. staffing clerk used to discuss dx, tx, and return precautions Differential Diagnosis Differential Diagnoses: The differential diagnosis associated with the presentation includes facial fracture, ICH, SDH, concussion, no evidence of symptomatic or cardiac arrythmia, fall was mechanical in nature Admission/Observation Consideration of admission/observation: Escalation of care including admission/observation considered elderly female w/ severe and fall, considered admission Lab Data MDM Lab Attestation statement: I reviewed the patient's lab results. Labs: Lab Results 04/30/23 04/30/23 Range/Units 12:06 12:07 POC Glucose 99 (60-115) mg/dL Urine Color Yellow Urine Appearance Clear Urine pH 7.5 (5.0-9.0) Ur Specific [place] <= 1.005 (1.005-1.025) Urine Protein Negative (Neg-Trace) mg/dL Urine Glucose (UA) Negative (Negative) mg/dL Urine Ketones Negative (Negative) mg/dL Urine Blood Negative (Negative) Urine Nitrite Negative (Negative) Ur Leukocyte Esterase Negative (Negative) Independent Interpretation I performed an independent interpretation of an: CT Scan Interpretation: CT without acute ICH or edema, no apprecaited facial bone fx, agree w/ radiology read Radiology Impression Discussion of test interpretation with radiology: I have reviewed the radiologist's reading. Radiologist Impression: STUDY: Unenhanced CT of the head, facial bones and cervical spine INDICATION: Fall with facial trauma TECHNIQUE: Continuous helical imaging obtained through the head, facial bones and cervical spine without IV contrast. Reconstructed images performed in the coronal and sagittal planes. This CT examination was performed using dose optimization techniques as appropriate, variously including the following: *Automated exposure control *Adjustment of mA and/or kV according to patient size (this includes techniques or standardized protocols for targeted exams where dose is matched to indication/reason for exam; i.e. extremities or head) *Use of iterative reconstruction technique TOTAL EXAM DLP: 238 mGy-cm COMPARISON: No FINDINGS: Head: Mild atrophy. No intracranial hemorrhage, extra-axial fluid collections, fractures or soft tissue hematomas identified status post fall. Intraorbital structures are unremarkable. Mild right ethmoid, minimal right maxillary sinus disease is present. Moderate left sinus disease, underlying polyp versus retention cyst not excluded. Remaining sinuses and mastoids are clear. Bony structures are intact. No soft tissue hematomas Facial bones: Tiny cortical bony lucency identified spanning the superior right orbital wall but no associated soft tissue swelling, likely nonacute. Orbital, maxillary meza, zygomatic arches, mandible and maxilla, nasal bones and anterior nasal spine are otherwise intact. Mild temporomandibular joint space narrowing. Soft palate hardware. Unremarkable parotid and submandibular glands. No pathologic lymphadenopathy. Nasopharynx, oropharynx and hypopharyngeal and laryngeal structures are unremarkable. Cervical spine: Cervical lordotic straightening. Mild degenerative spurring. No fracture or traumatic subluxation. Odontoid is intact, posterior elements are aligned and no prevertebral soft tissue swelling. No significant spinal canal or neural foraminal narrowings. Unremarkable thyroid. Mild increased markings lung apices. CT/CT head/brain wo IV con IMPRESSION: No acute intracranial or cervical spine pathology status post trauma. No definite acute posttraumatic facial findings. Thin bony lucency superior right orbital wall likely nonacute in the absence of associated soft tissue swelling. Correlate clinically and with past history. Sinus disease as described. Independent Historian Clinical information obtained from an independent historian. History obtained from or confirmed by: Other (INPATIENT SERVICES DIRECTOR) External Record Review External record reviewed: Office record, Outpatient record, Prior outpatient labs and Prior outpatient radiology Prescription Management I considered prescription management with: Pain Medication Chronic Conditions Patient?s care impacted by: Hypertension and Other (aortic stenosis) Critical Care Time Critical Care Time Critical Care Time: No Discharge Plan Discharge Clinical Impression: Abrasion of face Qualifiers: Encounter type: initial encounter Qualified Code(s): S00.81XA - Abrasion of other part of head, initial encounter Traumatic hematoma of forehead Qualifiers: Encounter type: initial encounter Qualified Code(s): S00.83XA - Contusion of other part of head, initial encounter Patient Disposition: Home, Self-Care Instructions: Abrasion (ED), Facial Contusion (ED) Additional Instructions: Your CT scans did not show any broken bones Recommend topical bacitracin to the abrasions on your face Use ice to the areas of discomfort several times per day for the next 48 hours Recommend tylenol and/or motrin as needed for aches and pains. Follow up with your doctor. If you develop new or worsening symptoms call 911 or come back to the ER for further evaluation. Aletha tomograf?as computarizadas no mostraron kurt?n hueso roto Recomienda bacitracina t?pica para las abrasiones de tu gerri. Use hielo en las ?reas de malestar varias veces al d?a neli las pr?ximas 48 horas. Recomiende tylenol y/o motrin seg?n sea necesario para mari y molestias. Derick un seguimiento con ambrocio m?dico. Si desarrolla s?ntomas nuevos o que empeoran, llame al 911 o regrese a la vivienne de emergencias para vania evaluaci?n adicional. Prescriptions: No Action calcium carbonate-vitamin D3 [Oyster Shell Calcium-Vit D3] 500 mg-5 mcg (200 unit) tablet 1 tab PO BID diclofenac sodium [Voltaren Arthritis Pain] 1 % gel 2 g topical QID Rx Instructions: apply to single elbow, wrist or hand; for hand includes palm/fingers/back of hand losartan-hydrochlorothiazide 50-12.5 mg tablet 1 tab PO DAILY cyclobenzaprine 10 mg tablet 10 mg PO BEDTIME amlodipine 5 mg tablet 5 mg PO DAILY ibuprofen 400 mg tablet 400 mg PO TID PRN (Reason: pain) Qty: 90 3RF Rx Instructions: take with food prednisone 5 mg tablet 5 mg PO BID Qty: 60 3RF Interventions: ED Discharge Assessment Last Done: 04/30/23 14:03 Discharge Date/Time: 04/30/23 14:05 Print Language: Arabic
[2023-04-30 12:10] LABS: Glucose, Whole Blood 99 mg/dL (60-115)
--- NOTE | 2023-04-30 12:11 | PC.NURSE ---
PT VSS, 5/10 PAIN ON L CHEEK FROM FALL, ICE PACK APPLIED WITH +EFFECT. ASSISTED PT WITH BEDPAN, UA SENT. POC 99. PT RESTING COMFORTABLY WITH WIRELESS STORE MANAGER PRESENT.
[2023-04-30 12:18] LABS: Appearance Urine Clear; Color Urine Yellow; Glucose Urine UA Negative (Negative); Leukocyte Esterase Urine Negative (Negative); Nitrite Urine Negative (Negative); PH 7.5 (5.0-9.0); Specific Gravity - Urine <= 1.005 (1.005-1.025); Urine Blood Negative (Negative); Urine Ketones Negative (Negative); Urine Protein Negative (Neg-Trace)
== END 2023-04-30 14:05 | disposition home or self-care (01) ==
PROVIDERS: Physician Assistant; Emergency Provider Emergency Medicine
DX: S00.81XA Abrasion of other part of head, initial encounter (principal); S00.83XA Contusion of other part of head, initial encounter; W17.89XA Other fall from one level to another, initial encounter; I10 Essential (primary) hypertension; M05.9 Rheumatoid arthritis with rheumatoid factor, unspecified; Z79.899 Other long term (current) drug therapy; Z87.891 Personal history of nicotine dependence; Y93.89 Activity, other specified; Y92.038 Other place in apartment as the place of occurrence of the external cause; Y99.9 Unspecified external cause status
CPT/HCPCS: 70450; 70486; 72125; 81003; 82947; 99283; 99284

== ENCOUNTER 2023-05-10 10:38 | Emergency (ER) | payer OTHER, SELFPAY ==
--- NOTE | ~2023-05-10 | CT_ITS ---
CT FACIAL BONES WITH IV CONTRAST CLINICAL INFORMATION: Infection to the right upper teeth/cellulitis and edema. COMPARISON: Facial CT 04/30/2023. TECHNIQUE: Multidetector CT acquisition of the face is obtained following the administration of 85 mL of Omnipaque 350 intravenous contrast without complication. This CT examination was performed using dose optimization techniques as appropriate, variously including the following: *Automated exposure control *Adjustment of mA and/or kV according to patient size (this includes techniques or standardized protocols for targeted exams where dose is matched to indication/reason for exam; i.e. extremities or head) *Use of iterative reconstruction technique FINDINGS: There is periapical lucency surrounding the root of the right first maxillary premolar that is most concerning for a periapical abscess given the presence of a 2 cm x 0.6 cm soft tissue abscess within the adjacent right premaxillary soft tissues best seen on image 19 of series 4. There is cellulitis and phlegmon adjacent to the abscess extending into the right buccal space and the right facial soft tissues. There is additional periapical lucency surrounding the root of the right central maxillary incisor. The partially imaged intracranial compartment is unremarkable. There is mild polypoid mucosal thickening within the right maxillary sinus and within the left maxillary sinus. All mucosal thickening within the ethmoid air cells bilaterally. The mastoid air cells and the middle ear cavities are clear. There is leftward deviation of the bony nasal septum. CT/CT facial bones w IV con IMPRESSION: There is periapical lucency surrounding the root of the right first maxillary premolar that is most concerning for a periapical abscess given the presence of a 2 cm x 0.6 cm soft tissue abscess within the adjacent right premaxillary soft tissues best seen on image 19 of series 4. There is cellulitis and phlegmon adjacent to the abscess extending into the right buccal space and the right facial soft tissues.
[2023-05-10 10:44] VITALS: BP 135/74; PULSE 101; RESP 19; TEMP 36.6; O2SAT 97; BMI 23.2
--- NOTE | 2023-05-10 11:24 | ED_ITS ---
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 Patient admits to right upper molar extraction 2 mo ago and has f/u with PCP and dentist since. Now reports pain, redness, and swelling to the right cheek, worsening over the last 5 days. Has been taking amoxicillin x5 days prescribed by her PCP without improvement in symptoms. Admits to chills at home and difficulty opening her mouth due to the pain. Denies fever, difficulty swallowing, difficulty speaking, vision changes, ear pain, N/V. Related Data Home Medications Medication Instructions Recorded Confirmed cyclobenzaprine 10 mg tablet 10 mg PO BEDTIME 11/21/21 03/07/23 diclofenac sodium 1 % topical gel 2 g topical QID 11/21/21 03/07/23 (Voltaren Arthritis Pain) losartan 50 mg-hydrochlorothiazide 1 tab PO DAILY 11/21/21 03/07/23 12.5 mg tablet amlodipine 5 mg tablet 5 mg PO DAILY 03/28/22 03/07/23 calcium carbonate 500 mg-vitamin 1 tab PO BID 04/10/22 03/07/23 D3 5 mcg (200 unit) tablet (Oyster Shell Calcium-Vitamin D3) Previous Rx's Medication Instructions Recorded ibuprofen 400 mg tablet 400 mg PO TID PRN pain #90 tabs 03/07/23 prednisone 5 mg tablet 5 mg PO BID #60 tabs 03/07/23 Allergies Allergy/AdvReac Type Severity Reaction Status Date / Time No Known Allergies Allergy Verified 05/10/23 10:44 Review of Systems 2 Review of Systems: Constitutional: No fever, chills, fatigue, night sweats, weight changes ENT/Mouth: + facial pain/ swealling, No ear pain, hearing loss, nasal congestion, sinus pain, rhinorrhea, sore throat Eyes: No eye pain, swelling, redness, vision changes, discharge Cardio: No chest pain, palpitations, CAMPBELL, orthopnea, peripheral edema Pulm: No SOB, cough, sputum, wheezing, dyspnea, hemoptysis GI: No nausea, vomiting, hematemesis, abdominal pain, diarrhea, constipation, hematochezia, melena : No irregular bleeding, dysuria, frequency, urgency, hesitancy, hematuria, flank pain, urinary flow changes, urinary incontinence or retention MSK: No back pain, neck pain, joint pain, myalgias Skin: No lesions, rashes Neuro: No weakness, numbness, paresthesias, LOC, dizziness, headache All other systems reviewed and are negative. [facility] Past Medical History Attestation statement: The following information was validated with the patient. 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 Mother No problems noted. Social History Social History Housing: Apartment Are you a primary childcare aide to a significant other at home: No Do you presently have visiting nurse or other home services: Yes Alcohol intake: former Patient Tobacco Use Status: Former Tobacco user Smoked in Last 30 Days: No e-Cigarette/Vaping Use: Never Used Use of substances other than those prescribed or required for medical reasons: No Advance Directives: No Advance Directives Information Provided: Yes service: No Current occupational status: disabled Physical Exam ED Vital Signs: Vital Signs - 24 hr 05/10/23 10:44 05/10/23 11:28 Temperature 98 F 98.5 F Pulse Rate 101 H 99 Respiratory Rate 19 15 Blood Pressure 135/74 131/88 Pulse Oximetry 97 96 Oxygen Delivery Method Room Air Room Air BMI result Body Mass Index 23.2 Vital signs notable for tachycardia. Otherwise within normal limits. General: Nontoxic appearing. NAD Skin: Warm and dry. Right cheek with edema and erythema extending from the jawline to underneath the right orbit. No involvement of the right orbital region. Head: Normocephalic, atraumatic. EENT: PERRLA. EOM intact. Moist mucous membranes. Right buccal mucosa with erythema, edema, and warmth. No palpable fluctuance. Tender to palpation. No visible abscess or pointing. Poor dentition with multiple caries. Tongue normal. Posterior oropharynx without erythema or exudates. Uvula midline. Speaking in complete sentences. Controlling secretions. Neck: Supple without LAD. Normal ROM. Trachea midline.? Cardiac: Chest wall symmetric. RRR. S1 and S1 appreciated. Lungs: CTA b/l. No rales, rhonchi, or wheezes. Normal respiratory effort without accessory muscle use. Abdomen: No visible lesions or scars. Soft, NT/ND.? Spine: No midline spinous or paraspinal tenderness. No step off deformity. Ext: UE/LE atraumatic. Full ROM intact. Capillary refill <2 sec throughout. Pulses 2+ throughout. No edema, cyanosis, or clubbing. Neuro: AO x3. Normal speech. CN 2-12 grossly intact. NV intact distally. Psych: Appropriate mood and affect. Responds appropriately to questions. Course Course Course Narrative: 1145-- patient with erythema, warmth, & swelling overlying the right cheek bone/upper jaw without involvement of the right orbit or palpable fluctuance. > Patient afebrile & normotensive however tachycardic > concern for infection > Lactic, blood cultures, Zosyn ordered. Sepsis not suspected. > Basic labs + CRP/ESR + CT facial bones w/ con ordered. 1249-- CBC with leukocytosis to 12.9 without left shift. Transiently elevated LFTs secondary to current TB treatment with isoniazid > patient without jaundice or scleral icteris. Chemistry without acute electrolyte abnormality requiring intervention. CRP & ESR elevated. Awaiting imaging. 1430-- Lactic WNL. CT facial bones showing periapical abscess within the adjacent right premaxillary soft tissues with cellulitis and phlegmon adjacent to the abscess extending to the right buccal space and the right facial soft tissues. On physical exam there is no palpable fluctuance that would warrant drainage >>>> Will discuss case with hospitalist and plan for admission. 1454-- Discussed case with Elidia Tomlinson PA-C who does not feel that this patient is appropriate for admission at our facility as we do not have the appropriate surgical subspecialties available (ENT or OMFS). Will reach out to [facility] and [facility] to see if they will accept this transfer. 1500-- I was informed that [facility] will not accept ENT patient transfer > We will reach out to [facility]. 1517-- Discussed case with transfer center at [facility] who declines patient transfer at this time due to capacity > Will reach out to [facility]. 1530-- Transfer accepted by [facility] (discussed case with Ilene) > patient to be transferred to [facility] ED with accepting attending Dr. Diaz. > Will plan for transfer. Patient's vital signs are still stable. Medications Administered Discontinued Medications Generic Name Dose Route Start Last Admin Trade Name Freq PRN Reason Stop Dose Admin Piperacillin Sod/Tazobactam 50 mls @ 100 mls/hr 05/10/23 11:43 05/10/23 15:41 Sod 3.375 gm/ Sodium Chloride IV 05/10/23 12:12 Infused ONCE ONE Infusion Iohexol 85 ml 05/10/23 13:54 05/10/23 13:54 Iohexol 350 Mg/Ml 75 Ml Infus..Btl IV 05/10/23 13:55 85 ml ONCE ONE Administration Morphine Sulfate 4 mg 05/10/23 14:00 05/10/23 15:41 Morphine Sulfate 4 Mg/Ml Cartridge IVPUSH 05/10/23 14:01 4 mg ONCE ONE Administration Protocol Medical Decision Making Medical Decision Making MDM Narrative: 72-year-old female with PMHx of severe aortic stenosis, HTN, anxiety, RA, latent TB on isoniazid presents to the ED today with a complaint of right-sided facial swelling and dental pain x5 days. VS notable for tachycardia, otherwise WNL. Patient nontoxic appearing and in no acute distress. Right cheek with edema and erythema extending from the jawline to underneath the right orbit without involvement of the right orbital region. EOM intact. Moist mucous membranes. Right buccal mucosa with erythema, edema, and warmth. No palpable fluctuance. Tender to palpation. No visible abscess or pointing. Poor dentition with multiple caries. Tongue normal. Posterior oropharynx without erythema or exudates. Uvula midline. Speaking in complete sentences. Controlling secretions. Clinical concern for dental abscess vs cellulitis. Sinusitis vs parotitis also considered however unlikely. Low suspicion for sepsis vs [employer] vs retropharyngeal abscess, preseptal vs orbital cellulitis > labs and imaging obtained. Unlikely angioedema, allergic reaction, or airway compromise. Differential Diagnosis Differential Diagnoses: The differential diagnosis associated with the presentation includes As above. Admission/Observation Consideration of admission/observation: Escalation of care including admission/observation considered In this 72 yo female with periapical abscess, admission was considered however d/t lack of proper subspecialty at [facility], will be transferred to . Consult Healthcare Provider Management of the patient was discussed with: Hospitalist (ELIZABET Chisholm) Lab Data MDM Lab Attestation statement: I reviewed the patient's lab results. As above. 05/10/23 12:23 05/10/23 12:23 Labs: Lab Results 05/10/23 05/10/23 Range/Units 12:23 12:24 WBC 12.9 H (4.8-10.8) X10*3/uL RBC 6.22 H (4.20-5.50) X10*6/uL Hgb 16.7 H D (12.0-16.0) g/dl Hct 51.0 H (37.0-47.0) % MCV 82.0 (80.0-98.0) fL MCH 26.8 L (27.0-33.0) pg MCHC 32.7 (31.0-35.0) g/dl RDW 13.6 (11.0-16.0) % Plt Count 238 (160-400) X10*3/uL MPV 10.5 (9.4-12.3) fL Immature Gran % (Auto) 0.5 H (0.0-0.4) % Neut % (Auto) 78.3 H (45-73) % Lymph % (Auto) 14.7 L (20-40) % Hardy % (Auto) 5.8 (2-11) % Eos % (Auto) 0.5 (0-4) % Baso % (Auto) 0.2 (0-2) % Lymph # (Auto) 1.9 (1.2-4.9) X10*3/uL Hardy # (Auto) 0.8 (0.1-1.2) X10*3/uL Eos # (Auto) 0.1 (0.0-0.4) X10*3/uL Baso # (Auto) 0.0 (0.0-0.2) X10*3/uL Abs Immat Gran (auto) 0.07 H (0.00-0.03) X10*3/uL Absolute Neuts (auto) 10.1 H (2.0-8.3) x10*3/uL Absolute Nucleated RBC 0.000 (0.0-0.012) X10*3/uL Nucleated RBC % (auto) 0.0 (0.0-0.2) /100WBC ESR 30 H (0-20) MM/HR PT 12.6 (11.1-13.3) SEC INR 1.0 (0.9-1.1) Sodium 142 (135-145) mmol/L Potassium 3.8 (3.3-5.1) mmol/L Chloride 100 (96-108) mmol/L Carbon Dioxide 26 (22-29) mmol/L Anion Gap 20 (12-20) BUN 12 (9-16) mg/dL Creatinine 0.90 (0.5-1.4) mg/dL Estim Creat Clear Calc 41.1 Estimated GFR > 60 Random Glucose 105 (60-115) mg/dL Lactic Acid 1.1 (0.5-2.0) mmol/L Calcium 11.8 H D (8.4-10.2) mg/dL Magnesium 2.6 (1.6-2.6) mg/dL Total Bilirubin 0.5 (0.0-1.0) mg/dL AST 65 H (5-31) U/L ALT 65 H (0-31) U/L Alkaline Phosphatase 143 H (39-117) U/L C-Reactive Protein 13.26 H (< or = 0.50) mg/dL B-Natriuretic Peptide 49 (<100) pg/mL Total Protein 9.0 H (6.5-8.0) g/dL Albumin 4.9 (3.5-5.0) g/dL Lipase 23 (8-78) U/L Independent Interpretation I performed an independent interpretation of an: CT Scan Interpretation: CT facial bones showing cellulitic soft tissue changes and periapical abscess, agree with radiologist's interpretation. Radiology Impression Discussion of test interpretation with radiology: I have reviewed the radiologist's reading. Radiologist Impression: CT facial bones w IV con IMPRESSION: There is periapical lucency surrounding the root of the right first maxillary premolar that is most concerning for a periapical abscess given the presence of a 2 cm x 0.6 cm soft tissue abscess within the adjacent right premaxillary soft tissues best seen on image 19 of series 4. There is cellulitis and phlegmon adjacent to the abscess extending into the right buccal space and the right facial soft tissues. External Record Review External record reviewed: Inpatient record Prescription Management I considered prescription management with: Pain Medication and Antibiotic Chronic Conditions Patient?s care impacted by: Other (poor dentition) Critical Care Time Critical Care Time Critical Care Time: Yes Total Critical Care Time: 60 Attestation: Critical care time in the amount of 60 minutes has been provided to the patient in terms of direct patient care, frequent reevaluation, consultation with hospitalist (Elidia Tomlinson), review and interpretation of medical data and results, management of potentially life-threatening conditions, and transfer of patient to [facility] with ENT coverage (). This is all outside of any medical procedures. Discharge Plan Discharge Clinical Impression: Acute periapical abscess Patient Disposition: [facility] Transfer Details: [facility] Emergency Department- Dr. Diaz Prescriptions: No Action calcium carbonate-vitamin D3 [Oyster Shell Calcium-Vit D3] 500 mg-5 mcg (200 unit) tablet 1 tab PO BID diclofenac sodium [Voltaren Arthritis Pain] 1 % gel 2 g topical QID Rx Instructions: apply to single elbow, wrist or hand; for hand includes palm/fingers/back of hand losartan-hydrochlorothiazide 50-12.5 mg tablet 1 tab PO DAILY cyclobenzaprine 10 mg tablet 10 mg PO BEDTIME amlodipine 5 mg tablet 5 mg PO DAILY ibuprofen 400 mg tablet 400 mg PO TID PRN (Reason: pain) Qty: 90 3RF Rx Instructions: take with food prednisone 5 mg tablet 5 mg PO BID Qty: 60 3RF
[2023-05-10 11:28] VITALS: BP 131/88; PULSE 99; RESP 15; TEMP 36.9; O2SAT 96
--- NOTE | 2023-05-10 11:35 | PC.NURSE ---
Patient reports that she had had right upper sided oral pain x 3 days. States pain has gotten worse over the last 3 days. Patient reports was given abt by her dentist but it is not working . Denies sob, chest pain or headache. Right side of face swollen, tender to touch. Patient denies difficulty swallowing, reports has had many teeth removed. Denies eye or ear pain.
[2023-05-10 12:31] LABS: MANUAL DIFF FLAG NO
[2023-05-10 12:37] LABS: Basophils Percent Auto 0.2 % (0-2); Eosinophils Absolute Auto 0.1 X10*3/uL (0.0-0.4); Eosinophils Percent Auto 0.5 % (0-4); Hemoglobin 16.7 g/dl (12.0-16.0); Imm Gran Abs Auto 0.07 X10*3/uL (0.00-0.03); Imm Gran Pct Auto 0.5 % (0.0-0.4); Lymphocytes Absolute Auto 1.9 X10*3/uL (1.2-4.9); Lymphocytes Percent Auto 14.7 % (20-40); Mean Corpuscular HGB Conc 32.7 g/dl (31.0-35.0); Mean Corpuscular Hemoglobin 26.8 pg (27.0-33.0); Mean Platelet Volume 10.5 fL (9.4-12.3); Monocytes Absolute Auto 0.8 X10*3/uL (0.1-1.2); Monocytes Percent Auto 5.8 % (2-11); Neutrophils Absolute Auto 10.1 x10*3/uL (2.0-8.3); Neutrophils Percent Auto 78.3 % (45-73); Platelet Count 238 X10*3/uL (160-400); Red Blood Count 6.22 X10*6/uL (4.20-5.50); Red Cell Distribution Width 13.6 % (11.0-16.0); White Blood Count 12.9 X10*3/uL (4.8-10.8)
[2023-05-10 12:45] LABS: Prothrombin Time 12.6 SEC (11.1-13.3)
[2023-05-10 12:46] LABS: Lactic Acid 1.1 mmol/L (0.5-2.0)
[2023-05-10 12:49] LABS: Alanine Aminotransferase 65 U/L (0-31); Albumin Level 4.9 g/dL (3.5-5.0); Alkaline Phosphatase 143 U/L (39-117); Anion Gap 20 (12-20); Aspartate Amino Transferase 65 U/L (5-31); Bilirubin Total 0.5 mg/dL (0.0-1.0); Blood Urea Nitrogen 12 mg/dL (9-16); C Reactive Protein 13.26 mg/dL (< or = 0.50); Calcium 11.8 mg/dL (8.4-10.2); Carbon Dioxide 26 mmol/L (22-29); Chloride 100 mmol/L (96-108); Creatinine Clr Calc Pharmacy 41.1; Estimated Glomerular Filt Rate > 60; Glucose Random 105 mg/dL (60-115); Lipase 23 U/L (8-78); Potassium 3.8 mmol/L (3.3-5.1); Sodium 142 mmol/L (135-145)
[2023-05-10 12:55] LABS: B Type Natriuretic Peptide 49 pg/mL (<100)
[2023-05-10 13:40] LABS: Erythrocyte Sedimentation Rate 30 MM/HR (0-20)
[2023-05-10] MEDS: iohexoL 350 MG/ML 75 ML INFUS..BTL 85 ML IV (13:54)
[2023-05-10] MEDS: Piperacillin Sodium/Tazobactam 3.375 GM in 0.9 % Sodium Chloride 50 ML IV (13:58)
--- NOTE | 2023-05-10 15:16 | MHC.EDTECH ---
Addendum entered by Theresa Shannon 05/10/23 16:03: [facility] accepted transfer ED to ED. Accepting MD Cordero. Original Note: Called [facility] for possible ENT transfer. Spoke to Elza from pt placement at 1515. Stated that [facility] is not taking ENT transfers at the moment. Called [facility] at 1517, spoke to Bonnie who spoke to ELIZABET Puente. They cannot accept pt due to being at full capacity. Calling [facility] now.
[2023-05-10 15:37] LABS: Magnesium 2.6 mg/dL (1.6-2.6)
[2023-05-10] MEDS: Morphine Sulfate 4 MG/ML CARTRIDGE IVPUSH (15:41)
--- NOTE | 2023-05-10 15:58 | PC.NURSE ---
Patient reports feeling better after pain medication, aware she will be transferred to [facility] for further treatment
[2023-05-10 19:03] VITALS: BP 145/87; PULSE 106; RESP 20; TEMP 37.3; O2SAT 95
--- NOTE | 2023-05-10 19:11 | PC.NURSE ---
Addendum entered by Jenna Foster 05/10/23 19:21: pt aware of transfer. requesting food; educated that pt must remain npo until transfer to [facility] per provider. Original Note: assumed care of pt at this time. vss. pt axox3. awaiting ems transfer to [facility]. airway patent.
--- NOTE | 2023-05-10 20:20 | PC.NURSE ---
pt reports she drank water from the sink in bathroom; unwitnessed by this RN. educated pt must remain npo per rprokimberlee. awaiting ems.
--- NOTE | 2023-05-10 20:59 | PC.NURSE ---
Pts daughter, Tanvi, called for an update. Tanvi updated with pts verbal consent.
[2023-05-10 21:33] VITALS: BP 117/76; PULSE 98; RESP 16; TEMP 37.2; O2SAT 95
--- NOTE | 2023-05-10 21:52 | PC.NURSE ---
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
== END 2023-05-10 21:53 | disposition short-term general hospital (02) ==
PROVIDERS: Physician Assistant Medical; Emergency Provider Emergency Medicine Emergency Medical Services; PCP Family Medicine
DX: K04.7 Periapical abscess without sinus (principal); I10 Essential (primary) hypertension; R06.02 Shortness of breath; K08.89 Other specified disorders of teeth and supporting structures; Z87.891 Personal history of nicotine dependence; Z79.899 Other long term (current) drug therapy
CPT/HCPCS: 36415; 70487; 80053; 83605; 83690; 83735; 83880; 85025; 85610; 85652; 86140; 87040; 96365; 96366; 96375; 99285; J2270; J2543; Q9967

== ENCOUNTER 2023-05-23 12:00 | Outpatient (REF) | payer OTHER, SELFPAY ==
--- NOTE | ~2023-05-23 | US_ITS ---
EXAMINATION: US VENOUS WITH DOPPLER UPPER EXTREMITY, BILATERAL CLINICAL INFORMATION: Pain in both upper extremities. COMPARISON: None available. TECHNIQUE: Ultrasound of the upper extremity is performed using compression sonography and color and pulse Doppler flow with assessment of augmentation of flow. There is also imaging and Doppler assessment of the jugular and subclavian veins. Spectral analysis with color-flow imaging is performed. FINDINGS: Respiratory variation, normal compression, and augmented flow are noted throughout the bilateral upper extremities including the axillary, brachial, cubital, and radial and ulnar veins. There is normal flow in the bilateral internal jugular and subclavian veins. If the patient's symptoms progress, a followup ultrasound in 5 -7 days might be of value to exclude proximal propagation from a nonvisualized distal arm vein. US/US venous duplex UE BI IMPRESSION: No DVT demonstrated in the bilateral upper extremities.
== END 2023-05-23 12:01 | disposition home or self-care (01) ==
LOC: HO.US 12:00
PROVIDERS: PCP Family Medicine; Visit Provider Emergency Medicine
DX: M79.601 Pain in right arm (principal); R22.33 Localized swelling, mass and lump, upper limb, bilateral
CPT/HCPCS: 93970

== ENCOUNTER 2023-06-17 09:45 | Outpatient (AMB) | payer OTHER, SELFPAY ==
[2023-06-17 09:48] VITALS: BP 134/86; PULSE 75; TEMP 36.3; O2SAT 95; BMI 23.9
--- NOTE | 2023-06-17 09:48 | A.OFFVIS_ITS ---
Intake Vital Signs 06/17/23 09:48 Height 5 ft Weight 122 lb 2.177 oz BMI 23.9 BP 134/86 Blood Pressure Location Rt brachial Position Sitting Pulse 75 Pulse Source Pulse Oximeter Temp 97.3 F Temp Source Skin Pulse Oximetry (%) 95 Oxygen Delivery Method Room Air Intake Visit Reasons: ra Intake Note: Patient presents today to follow up on RA. c/o feet pain, painful walking. c/o juan hand pain and difficulty opening jars. Requesting cream for hand pain. Reports falling but unsure when. Per ART CONSULTANT it happened about 3-4 wks. States she was admitted somewhere in [place] due to the fall. Per ART CONSULTANT, [facility] sent her to [facility], [facility] sent her to [facility] in which she was admitted for about 4 days. She was found to have an infection that swolled up her face s/o fall. Broodmare Barn Groom Required: Yes Broodmare Barn Groom Language: Environmental Quality Analyst Name: [id number] Information Interpreted: clinical only Accompanied by: car storer Allergies No Known Allergies Allergy (Verified 05/10/23 10:44) HPI HPI Comments History of Present Illness Details The patient returns today for evaluation of her rheumatoid arthritis. She is accompanied by her REGIONAL ENGAGEMENT CONSULTANT who adds some additional history. The Biotteryd translating device was used for the visit. The patient again relates multiple areas of pain including the neck, shoulders, wrists, MCP regions, MTP's and knees. She apparently is still using the prednisone although cannot really recognize its name. She did not bring any of her medications in today. She wants a refill on a gel that was used for pain relief as well. She has seen people wearing wrist splints and knee braces so she wants to try those. She again does not want to discuss her cardiac diagnosis. She says she is leaving it up to God. The REGIONAL ENGAGEMENT CONSULTANT indicates she does all the shopping for the patient and most of the food preparation as well. She notes the patient has difficulty putting on her clothes in the mornings. The patient rarely gets out of the house. At the end of April she had some facial swelling and was found to have a dental abscess on evaluation in the ER. There was apparently a fall as well. They were concerned enough to transfer to [facility] for evaluation. It sounds as if the patient was given some intravenous and oral antibiotics and then discharged. The patient actually is requesting further antibiotics as she thinks they were helpful with joint pain relief. I suspect that was because she was getting regular doses of corticosteroids in the hospital as well. 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 Mother No problems noted. Social History Housing: Apartment Are you a primary care transition manager to a significant other at home: No Do you presently have visiting nurse or other home services: Yes 75 years or older and lives alone: No Alcohol intake: former Patient Tobacco Use Status: Former Tobacco user e-Cigarette/Vaping Use: Never Used service: No Current occupational status: disabled Review of Systems Const Details: Negative for appetite change, weight change, fever, chills, malaise and fatigue Card Details: Negative chest pain, edema and syncope Resp Details: Negative for SOB, cough and wheezing Endo Details: Negative for polyuria and polydypsia Ernst/Lymph Details: Negative for excessive bruising or bleeding. Physical Exam Vital Signs: Last Vital Signs Temp 97.3 F 06/17/23 09:48 Pulse 75 06/17/23 09:48 BP 134/86 06/17/23 09:48 Pulse Ox 95 06/17/23 09:48 Oxygen Delivery Method Room Air 06/17/23 09:48 BMI result Body Mass Index 23.9 APPEARANCE: Patient in no acute distress EXTREMITIES: No edema, no calf tenderness, normal peripheral pulses. JOINT EXAM: Cervical Spine:.? Mild discomfort with rotation of 45 degrees or lateral flexion at 15 degrees.? No cervical muscle tenderness. Thoracic Spine:.? No scoliosis.? No tenderness on palpation. Lumbar Spine:.? Alignment normal.? Full range of motion without pain, no tenderness. Chest Wall:.? No tenderness, swelling, increased warmth or erythema. Hands:? Right:? Mild tenderness and enlargement at the thumb CMC joint.? Slight swelling and mild tenderness at the 1st 3 MCP joints.? There is bony and soft tissue swelling of the thumb IP and the 2nd through 4th PIP joints.? The 2nd and 3rd PIP joints have mild tenderness.? There is no thenar atrophy, flexor tendon triggering or sensory loss.? Left: Slight tenderness without swelling at the thumb CMC joint.? There is mild tenderness at the 1st 3 MCP with mild swelling.? The thumb IP and all the PIP's have mild bony enlargement; the 2nd through 4th have mild tenderness.? There is no flexor tendon triggering, thenar atrophy or sensory loss. Wrists:? Mild pain with flexion or extension at at 60 degrees with some mild tenderness and slight swelling bilaterally. Elbows:? Right:? ? The elbow lacks about 10 degrees of full extension.? ? There is minimal soft tissue swelling over the elbow and there is mild tenderness over the elbow joint.? There is no redness or warmth noted at the elbow.? Left:? Pain-free range of motion with no tenderness or swelling. Shoulders:? Right:? Mild ? pain with abduction at 120 degrees or with more than 20 degrees of rotation. There is mild anterior tenderness without adenopathy, swelling or abductor weakness.? Left:? Mild discomfort with 150 degrees of abduction or attempts at more than 20 degrees of rotation. She has [id number] anterior tenderness without adenopathy, soft tissue swelling, increased warmth or erythema. Hips:? Full range of motion without pain. Hip bursa:? No tenderness. Knees:?? Right:?? Mild pain with extremes of range of motion with some slight medial tenderness without redness or effusion.?? Left:? ? Slight patellofemoral crepitus with normal pain-free range of motion.? There is no swelling but there is mild medial compartment tenderness. Ankles: both ankles have mild medial lateral tenderness without swelling.? There is pain with inversion and eversion. Feet:? Right: There is mild swelling over the 1st 2 MCP joints in these have mild tenderness. There is some slight tenderness in the instep as well without swelling. Left: Normal pain-free range of motion with mild tenderness in the instep and MTP regions.? No swelling or redness. ??? 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 It is unclear whether she took it very often. She is illiterate and did not understand how to take it. She would not let anybody monitor her medications in the home. Mostly treatment since then has been with prednisone at a low dose. Code(s): M05.9 - Rheumatoid arthritis with rheumatoid factor, unspecified Plan Rheumatoid arthritis with unfortunately still ongoing active synovitis. There is also likely some osteoarthritis in the hands. I think she is taking the p rednisone most days so that probably is why she looks a bit better than she was in the past when she was completely off the prednisone. I again tried to have a discussion with her about alternative treatments. The last set of blood work did show elevated transaminases making methotrexate or leflunomide not feasible. She would be a candidate for Humira since she did finish off the course of INH for her latent tuberculosis. She does not seem to have any respiratory symptoms presently. She does not want to hear about additional treatment beyond the prednisone and the diclofenac gel. I did give her refills on those items. At her insistence I did give her prescriptions for right and left wrist splints and right and left knee braces. I told her I am not sure her insurance would pay for those measures. I do not see any signs of a dental infection today so that seems to have cleared. A follow-up in 5 months or so would be reasonable. It would appear she is resistant to the idea of additional treatment for the rheumatoid arthritis. Additionally I do not think she could handle taking pills so the idea of a once every 2 week injection of Humira would be more feasible if given by a VNA. So far however she refuses to consider the option. Medications: New arm brace (Wrist Brace) use on the wrists at night 2 ea 0RF M05.9 - Rheumatoid arthritis with rheumatoid factor, unspecified arm brace (Wrist Brace) As directed 2 ea 0RF M05.9 - Rheumatoid arthritis with rheumatoid factor, unspecified leg brace (SOUTH Knee Brace) As directed 2 ea 0RF M05.9 - Rheumatoid arthritis with rheumatoid factor, unspecified Changed From diclofenac sodium 1% (Voltaren Arthritis Pain) apply to single elbow, wrist or hand; for hand includes palm/fingers/back of hand 2 grams topical QID M05.9 - Rheumatoid arthritis with rheumatoid factor, unspecified, M19.049 - Primary osteoarthritis, unspecified hand To diclofenac sodium 1% (Voltaren Arthritis Pain) apply to affected hand joints 1 - 2 grams topical BID 100 grams 3RF M05.9 - Rheumatoid arthritis with rheumatoid factor, unspecified, M19.049 - Primary osteoarthritis, unspecified hand Refilled prednisone 5 mg PO BID 60 tabs 3RF M05.9 - Rheumatoid arthritis with rheumatoid factor, unspecified Coding Level of Care Code Est Pt Level 4 (92580) Diagnoses Latent tuberculosis by blood test Z22.7 terminal operator use of drug Z79.899 Osteoarthritis, hand, primary localized M19.049 Seropositive rheumatoid arthritis M05.9
== END 2023-06-17 10:35 | disposition home or self-care (01) ==
PROVIDERS: PCP Family Medicine; Visit Provider Internal Medicine Rheumatology
DX: M05.79 Rheumatoid arthritis with rheumatoid factor of multiple sites without organ or systems involvement (principal); Z22.7 Latent tuberculosis; Z79.899 Other long term (current) drug therapy; M19.049 Primary osteoarthritis, unspecified hand
CPT/HCPCS: 99214

== ENCOUNTER → 2023-06-17 09:45 | Outpatient (BNVA) | payer OTHER, SELFPAY | PROVIDERS: PCP Family Medicine; Visit Provider Internal Medicine Rheumatology | DX: M05.9 Rheumatoid arthritis with rheumatoid factor, unspecified (principal); M19.049 Primary osteoarthritis, unspecified hand; Z79.899 Other long term (current) drug therapy; Z22.7 Latent tuberculosis | CPT/HCPCS: 99212 ==

== ENCOUNTER 2023-11-19 10:32 | Outpatient (AMB) | payer OTHER, SELFPAY ==
--- NOTE | 2023-11-19 10:33 | A.OFFVIS_ITS ---
Intake Vital Signs 11/19/23 10:43 Height 5 ft Weight 123 lb 7.342 oz BMI 24.1 BP 102/74 Blood Pressure Location Rt brachial Position Sitting Pulse 71 Pulse Source Pulse Oximeter Temp 97.5 F Temp Source Skin Pulse Oximetry (%) 97 Oxygen Delivery Method Room Air Intake Visit Reasons: ra with incinerator attendant/cm Intake Note: Patient last seen 06/17/[address] Schwab, presents today for follow up and test results. c/o back pain. Would like rx for patch. Guest Relations Manager Required: Yes Guest Relations Manager Language: Table Saw Operator Name: Marivel [id number] Accompanied by: JUNIOR SYSTEMS ANALYST Allergies No Known Allergies Allergy (Verified 11/19/23 10:44) HPI HPI Comments History of Present Illness Details Ms. Bagley 73yoF returns today for follow-up of her rheumatoid arthritis. She is accompanied by her REFERENCE TEST CLERK,Kadie Perez). The patient again relates multiple areas of pain including the neck, shoulders, wrists, MCP regions, MTP's and knees. She apparently is still using the prednisone although cannot really recognize its name. She did not bring any of her medications in today. She does not want to discuss treatment for the RA and refuses to change from Prednisone. She says she takes prednisone when her hands are swollen. The REFERENCE TEST CLERK indicates that, even though the patients says that she is fine, she can see that she is in a lot of pain and has difficulty using her hands. The patient rarely gets out of the house. The patient is adamant about not doing any labs because her PCP already have her do labs. 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 Mother No problems noted. Social History Housing: Apartment Are you a primary lawn care worker to a significant other at home: No Do you presently have visiting nurse or other home services: Yes 75 years or older and lives alone: No Alcohol intake: former Patient Tobacco Use Status: Former Tobacco user e-Cigarette/Vaping Use: Never Used service: No Current occupational status: disabled Review of Systems Const All systems reviewed & are unremarkable except as noted in HPI and below Physical Exam Vital Signs: Last Vital Signs Temp 97.5 F 11/19/23 10:43 Pulse 71 11/19/23 10:43 BP 102/74 11/19/23 10:43 Pulse Ox 97 11/19/23 10:43 Oxygen Delivery Method Room Air 11/19/23 10:43 BMI result Body Mass Index 24.1 APPEARANCE: Patient in no acute distress EXTREMITIES: No edema, no calf tenderness, normal peripheral pulses. JOINT EXAM: Cervical Spine:.? Mild discomfort with rotation of 45 degrees or lateral flexion at 15 degrees.? No cervical muscle tenderness. Thoracic Spine:.? No scoliosis.? No tenderness on palpation. Lumbar Spine:.? Alignment normal.? Full range of motion without pain, no tenderness. Chest Wall:.? No tenderness, swelling, increased warmth or erythema. Hands:? Right:? Mild tenderness and enlargement at the thumb CMC joint.? Swelling and moderate tenderness at the 1st 3 MCP joints.? There is bony and soft tissue swelling of the thumb IP and the 2nd through 4th PIP joints.? The 2nd and 3rd PIP joints have tenderness.? There is no thenar atrophy, flexor tendon triggering or sensory loss.? Left: MIld to moderate tenderness without swelling at the thumb CMC joint.? There is mild tenderness at the 1st 3 MCP with swelling.? The thumb IP and all the PIP's have mild bony enlargement; the 2nd through 4th have moderate tenderness and mild swelling.? There is no flexor te ndon triggering, thenar atrophy or sensory loss. Wrists:? Mild pain with flexion or extension at at 60 degrees with some mild tenderness and slight swelling bilaterally. Elbows:? Right:? ? The elbow lacks about 10 degrees of full extension.? ? There is minimal soft tissue swelling over the elbow and there is mild tenderness over the elbow joint.? There is no redness or warmth noted at the elbow.? Left:? Pain-free range of motion with no tenderness or swelling. Shoulders:? Right:? Mild ? pain with abduction at 120 degrees or with more than 20 degrees of rotation. There is mild anterior tenderness without adenopathy, swelling or abductor weakness.? Left:? Mild discomfort with 150 degrees of abduction or attempts at more than 20 degrees of rotation. She has qzph-uk-yecgbfxw anterior tenderness without adenopathy, soft tissue swelling, increased warmth or erythema. Hips:? Full range of motion without pain. Hip bursa:? No tenderness. Knees:?? Right:?? Mild pain with extremes of range of motion with some slight medial tenderness without redness or effusion.?? Left:? ? Slight patellofemoral crepitus with normal pain-free range of motion.? There is no swelling but there is mild medial compartment tenderness. Ankles: both ankles have mild medial lateral tenderness without swelling.? There is pain with inversion and eversion. Feet:? Right: There is mild swelling over the 1st 2 MCP joints in these have mild tenderness. There is some slight tenderness in the instep as well without swelling. Left: Normal pain-free range of motion with mild tenderness in the instep and MTP regions.? No swelling or redness. ??? 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 It is unclear whether she took it very often. She is illiterate and did not understand how to take it. She would not let anybody monitor her medications in the home. Mostly treatment since then has been with prednisone at a low dose. Code(s): M05.9 - Rheumatoid arthritis with rheumatoid factor, unspecified Plan RA:Patient continues with severe hand pain and swelling. Does not want alternate medications. I again encourage that the Prednisone is not sufficient to treat the RA. She wants to return to her PCP to have him prescribe the prednisone. She also refuses to do lab work when requested saying that she will go to her PCP. I explained the disease process to the JUNIOR SYSTEMS ANALYST and the need for certain medication. The JUNIOR SYSTEMS ANALYST will try to talk with her and her son and get back to us if the patient agrees to follow-up. I have ordered the labs and told them to have those done if she decides to follow-up. Last Visit 06/2023 : Rheumatoid arthritis with unfortunately still ongoing active synovitis. There is also likely some osteoarthritis in the hands. I think she is taking the prednisone most days so that probably is why she looks a bit better than she was in the past when she was completely off the prednisone. I again tried to have a discussion with her about alternative treatments. The last set of blood work did show elevated transaminases making methotrexate or leflunomide not feasible. She would be a candidate for Humira since she did finish off the course of INH for her latent tuberculosis. She does not seem to have any respiratory symptoms presently. She does not want to hear about additional treatment beyond the prednisone and the diclofenac gel. I did give her refills on those items. At her insistence I did give her prescriptions for right and left wrist splints and right and left knee braces. I told her I am not sure her insurance would pay for those measures. I do not see any signs of a dental infection today so that seems to have cleared. A follow-up in 5 months or so would be reasonable. It would appear she is resistant to the idea of additional treatment for the rheumatoid arthritis. Additionally I do not think she could handle taking pills so the idea of a once every 2 week injection of Humira would be more feasible if given by a VNA. So far however she refuses to consider the option. Orders: Orders Complete Blood Count Auto Diff Today M05.9 - Rheumatoid arthritis with rheumatoid factor, unspecified, Z79.899 - Other termite technician (current) drug therapy C Reactive Protein Today M05.9 - Rheumatoid arthritis with rheumatoid factor, unspecified, Z79.899 - Other termite technician (current) drug therapy Creatine Kinase Total Today M05.9 - Rheumatoid arthritis with rheumatoid factor, unspecified, Z79.899 - Other termite technician (current) drug therapy Immunoglobulins,IgG IgA IgM Today M05.9 - Rheumatoid arthritis with rheumatoid factor, unspecified, Z79.899 - Other termite technician (current) drug therapy Uric Acid Today M05.9 - Rheumatoid arthritis with rheumatoid factor, unspecified, Z79.899 - Other [facility] (current) drug therapy Protein Electrophoresis, Serum Today M05.9 - Rheumatoid arthritis with rheumatoid factor, unspecified, Z79.899 - Other [facility] (current) drug therapy Hepatitis A,B,C Profile Today M05.9 - Rheumatoid arthritis with rheumatoid factor, unspecified, Z79.899 - Other [facility] (current) drug therapy Erythrocyte Sedimentation Rate Today M05.9 - Rheumatoid arthritis with rheumatoid factor, unspecified, Z79.899 - Other termite technician (current) drug therapy Comprehensive Met. Panel Today M05.9 - Rheumatoid arthritis with rheumatoid factor, unspecified, Z79.899 - Other termite technician (current) drug therapy Immunofixation Pnl, Serum Today M05.9 - Rheumatoid arthritis with rheumatoid factor, unspecified, Z79.899 - Other [facility] (current) drug therapy T Spot TB Today M05.9 - Rheumatoid arthritis with rheumatoid factor, unspecified, Z79.899 - Other termite technician (current) drug therapy Coding Level of Care Code Est Pt Level 3 (04662) Diagnoses Latent tuberculosis by blood test Z22.7 remote computer terminal operator use of drug Z79.899 Localized, primary osteoarthritis of hand, unspecified laterality M19.049 Laterality: unspecified laterality Seropositive rheumatoid arthritis M05.9
[2023-11-19 10:43] VITALS: BP 102/74; PULSE 71; TEMP 36.4; O2SAT 97; BMI 24.1
== END 2023-11-19 11:49 | disposition home or self-care (01) ==
LOC: HO.RHE 10:32
PROVIDERS: PCP Family Medicine; Visit Provider Nurse Practitioner Family
DX: M05.79 Rheumatoid arthritis with rheumatoid factor of multiple sites without organ or systems involvement (principal); Z22.7 Latent tuberculosis; Z79.899 Other long term (current) drug therapy; M19.049 Primary osteoarthritis, unspecified hand
CPT/HCPCS: 99213

== ENCOUNTER → 2023-11-19 10:32 | Outpatient (BNVA) | payer OTHER, SELFPAY | PROVIDERS: PCP Family Medicine; Visit Provider Nurse Practitioner Family | DX: M05.9 Rheumatoid arthritis with rheumatoid factor, unspecified (principal); M19.049 Primary osteoarthritis, unspecified hand; Z22.7 Latent tuberculosis; Z79.52 Long term (current) use of systemic steroids; Z79.899 Other long term (current) drug therapy | CPT/HCPCS: 99212 ==

== ENCOUNTER 2024-01-13 08:31 | Outpatient (REF) | payer OTHER, SELFPAY ==
[2024-01-13 12:10] LABS: Basophils Absolute Auto 0.1 X10*3/uL (0.0-0.2); Basophils Percent Auto 0.4 % (0-2); Eosinophils Absolute Auto 0.1 X10*3/uL (0.0-0.4); Hematocrit 46.4 % (37.0-47.0); Hemoglobin 15.2 g/dl (12.0-16.0); Imm Gran Abs Auto 0.11 X10*3/uL (0.00-0.03); Imm Gran Pct Auto 0.9 % (0.0-0.4); Lymphocytes Absolute Auto 5.1 X10*3/uL (1.2-4.9); MANUAL DIFF FLAG SCAN; Mean Corpuscular HGB Conc 32.8 g/dl (31.0-35.0); Mean Corpuscular Volume 85.5 fL (80.0-98.0); Mean Platelet Volume 11.2 fL (9.4-12.3); Monocytes Absolute Auto 0.9 X10*3/uL (0.1-1.2); Monocytes Percent Auto 7.3 % (2-11); Neutrophils Absolute Auto 6.1 x10*3/uL (2.0-8.3); Neutrophils Percent Auto 49.4 % (45-73); Platelet Count 265 X10*3/uL (160-400); Red Blood Count 5.43 X10*6/uL (4.20-5.50); Red Cell Distribution Width 14.1 % (11.0-16.0); SCAN SMEAR FLAG 1; White Blood Count 12.4 X10*3/uL (4.8-10.8)
[2024-01-13 12:22] LABS: Estimated Average Glucose 114 mg/dL; Hemoglobin A1c % 5.6 % (<6.0)
[2024-01-13 12:36] LABS: Alanine Aminotransferase 21 U/L (0-31); Albumin Level 4.2 g/dL (3.5-5.0); Alkaline Phosphatase 119 U/L (39-117); Anion Gap 12 (12-20); Aspartate Amino Transferase 18 U/L (5-31); Bilirubin Direct 0.1 mg/dL (0.0-0.5); Bilirubin Total 0.4 mg/dL (0.0-1.0); Blood Urea Nitrogen 15 mg/dL (9-16); Calcium 10.3 mg/dL (8.4-10.2); Carbon Dioxide 28 mmol/L (22-29); Chloride 108 mmol/L (96-108); Cholesterol 295 mg/dL (<200); Estimated Glomerular Filt Rate > 60; Glucose Random 79 mg/dL (60-115); HDL Cholesterol 47 mg/dL (>40); LDL Cholesterol Calculated 206 mg/dL (<100); Potassium 3.9 mmol/L (3.3-5.1); Sodium 144 mmol/L (135-145); Total Protein 7.1 g/dL (6.5-8.0); Triglycerides 210 mg/dL (<150)
[2024-01-13 12:41] LABS: TSH reflex Free T4 0.99 uIU/mL (0.32-4.0); Vitamin D 25-OH Total 59.7 ng/mL (>30)
[2024-01-13 12:45] LABS: SLIDE REVIEW VERIFIED
[2024-01-13 13:17] LABS: Erythrocyte Sedimentation Rate 3 MM/HR (0-20)
== END 2024-01-13 08:32 | disposition home or self-care (01) ==
LOC: HO.HHCL 08:31
PROVIDERS: Visit Provider Family Medicine
DX: R74.01 Elevation of levels of liver transaminase levels (principal); R74.02 Elevation of levels of lactic acid dehydrogenase [LDH]; M05.9 Rheumatoid arthritis with rheumatoid factor, unspecified; F20.0 Paranoid schizophrenia; E55.9 Vitamin D deficiency, unspecified; E78.5 Hyperlipidemia, unspecified
CPT/HCPCS: 36415; 80048; 80061; 80076; 82306; 83036; 84443; 85025; 85652

== ENCOUNTER 2024-10-03 16:48 | Observation (INO) | payer OTHER, SELFPAY ==
--- NOTE | 2024-10-03 16:56 | ED.NAVMDI ---
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 She reports taking all of her medications today. She was 140/80s with EMS. She denies headache, abdominal pain, diarrhea, fevers. She denies trauma. She states she has no headache. Before she vomited she felt dizzy and weak all over but that resolved she states she vomited x3. She has no complaints right now other than nausea. MD elicited complaint: nausea Onset (ago): hour(s) (few) Description of vomiting: food contents and watery Associated nausea: Yes Associated abdominal pain: No Location of pain: none Severity: moderate Exacerbating factors: eating Relieving factors: none Context: other (states if her BP goes up this happens) Associated symptoms: nausea/vomiting Related Data Home Medications ?Medication ?Instructions ?Recorded ?Confirmed cyclobenzaprine 10 mg tablet 10 mg PO BEDTIME 11/21/21 03/07/23 losartan 50 mg-hydrochlorothiazide 1 tab PO DAILY 11/21/21 03/07/23 12.5 mg tablet amlodipine 5 mg tablet 5 mg PO DAILY 03/28/22 03/07/23 calcium 500 mg (as 1 tab PO BID 04/10/22 03/07/23 carbonate)-vitamin D3 5 mcg (200 unit) tablet (Oyster Shell Calcium-Vitamin D3) Previous Rx's ?Medication ?Instructions ?Recorded ibuprofen 400 mg tablet 400 mg PO TID PRN pain #90 tabs 03/07/23 arm brace (Wrist Brace) #2 ea 06/17/23 arm brace (Wrist Brace) #2 ea 06/17/23 diclofenac sodium 1 % topical gel 1 - 2 g topical BID #100 grams 06/17/23 (Voltaren Arthritis Pain) leg brace (SOUTH Knee Brace) #2 ea 06/17/23 prednisone 5 mg tablet 5 mg PO BID #60 tabs 06/17/23 Allergies Allergy/AdvReac Type Severity Reaction Status Date / Time No Known Allergies Allergy Verified 10/03/24 17:08 Review of Systems Review of Systems: Constitutional : No Weight loss, No Fever, No Chills ENT/Mouth : No sore throat, No Rhinorrhea Eyes: No Swelling, No Redness Cardiovascular : No Chest Pain, No SOB, NoEdema Respiratory : No Cough, No Sputum, No Wheezing Gastrointestinal : Positive Nausea, Positive Vomiting, no Diarrhea, no abdominal Pain, No Hematochezia, No Melena Genitourinary : No Dysuria, No Urinary Frequency, No Hematuria, No Urgency Musculoskeletal : No joint pain, No Myalgias, No Joint Swelling Skin : No Skin Lesions, No rash Neuro : No Weakness, No Numbness, pos Dizziness, No Headache Psych : No Anxiety/Panic, No Depression All other systems reviewed and are negative. Gastrointestinal: Gastrointestinal: Reports nausea PMFSH Past Medical History Attestation statement: The following information was validated with the patient. 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 Mother No problems noted. Social History Social History Housing: Apartment Are you a primary resident care aid to a significant other at home: No Do you presently have visiting nurse or other home services: Yes Alcohol intake: former Patient Tobacco Use Status: Former Tobacco user Smoked in Last 30 Days: No e-Cigarette/Vaping Use: Never Used Use of substances other than those prescribed or required for medical reasons: No Advance Directives: No Advance Directives Information Provided: No Do you have a plan to hurt others: No Plan service: No Current occupational status: disabled Physical Exam Vital Signs: Vital Signs: Last Vital Signs Temp 97.8 F 10/03/24 20:28 Pulse 70 10/03/24 20:28 Resp 17 10/03/24 20:28 BP 120/67 10/03/24 20:28 Pulse Ox 93 10/03/24 20:28 O2 Del Method Room Air 10/03/24 20:28 BMI result Body Mass Index 21.6 Appearance: Alert. Oriented X3. No acute distress. Eyes: Pupils equal, round and reactive to light. ENT: Pharynx normal. atraumatic Neck: Normal inspection. Neck supple. CVS: Normal heart rate and rhythm. Pulses normal. Respiratory: No respiratory distress. Breath sounds normal. Abdomen: Soft and non-tender. Skin: Skin warm and dry. Normal skin color. Normal skin turgor. Extremities: No lower extremity edema. No calf ttp Neuro: Oriented X 3. No motor deficit. No sensory deficit. CN2-12 intact Course Course Course Narrative: patient states she is feeling better, BP is normal Medications Administered Discontinued Medications Generic Name Dose Route Start Last Admin Trade Name Freq PRN Reason Stop Dose Admin Sodium Chloride 500 mls @ 500 mls/hr 10/03/24 16:58 10/03/24 19:10 Ns IV 10/03/24 17:57 Infused .Q1H ONE Infusion Ondansetron HCl 4 mg 10/03/24 16:58 10/03/24 17:30 Ondansetron Hcl 4 Mg/2 Ml Vial IVPUSH 10/03/24 16:59 4 mg ONCE ONE Administration Medical Decision Making Medical Decision Making [facility] Narrative: 74 yo female with PMH of arthritis, RA on chronic prednisone 5mg BID, schizophrenia, severe aortic stenosis, anxiety and HTN who presents with c/o having her BP high at home 150/100, EMS got 140s/88 and patient states it made her vomit. She denies headaches, numbness, weakness, confusion, abdominal pain, chest pain, sob. She just c/o nausea. She felt dizzy when vomiting earlier. At this time has no pain to palpation on exam. At this time she does have EKG changes from 2022 but no CP/SOB and only nausea could be NSTEMI - will obtain labs start on gentle fluids and IV zofran. Possible viral syndrome, NSTEMI, lyte abnormality Differential Diagnosis Differential Diagnoses: The differential diagnosis associated with the presentation includes viral syndrome, NSTEMI, lyte abnormality Admission/Observation Consideration of admission/observation: Escalation of care including admission/observation considered admit given abnormal EKG and discussion with cardiology Consult Healthcare Provider Management of the patient was discussed with: Hospitalist (will admit) and Internet Marketing Intern (Dr. Orellana recommends keep overnight for further work up / ECHO) Lab Data MDM Lab Attestation statement: I reviewed the patient's lab results. 10/03/24 17:20 10/03/24 17:20 Labs: Lab Results 10/03/24 10/03/24 Range/Units 17:20 20:02 WBC 8.9 (4.8-10.8) X10*3/uL RBC 5.47 (4.20-5.50) X10*6/uL Hgb 15.1 (12.0-16.0) g/dl Hct 44.2 (37.0-47.0) % MCV 80.8 (80.0-98.0) fL MCH 27.6 (27.0-33.0) pg MCHC 34.2 (31.0-35.0) g/dl RDW 13.8 (11.0-16.0) % Plt Count 213 (160-400) X10*3/uL MPV 10.8 (9.4-12.3) fL Immature Gran % (Auto) 1.0 H (0.0-0.4) % Neut % (Auto) 60.4 (45-73) % Lymph % (Auto) 31.3 (20-40) % Craven % (Auto) 5.4 (2-11) % Eos % (Auto) 1.7 (0-4) % Baso % (Auto) 0.2 (0-2) % Lymph # (Auto) 2.8 (1.2-4.9) X10*3/uL [place]ven # (Auto) 0.5 (0.1-1.2) X10*3/uL Eos # (Auto) 0.2 (0.0-0.4) X10*3/uL Baso # (Auto) 0.0 (0.0-0.2) X10*3/uL Abs Immat Gran (auto) 0.09 H (0.00-0.03) X10*3/uL Absolute Neuts (auto) 5.4 (2.0-8.3) x10*3/uL Absolute Nucleated RBC 0.000 (0.0-0.012) X10*3/uL Nucleated RBC % (auto) 0.0 (0.0-0.2) /100WBC D-Dimer High Sensitivty < 150 NG/ML Sodium 141 (135-145) mmol/L Potassium 4.1 (3.3-5.1) mmol/L Chloride 108 (96-108) mmol/L Carbon Dioxide 22 (22-29) mmol/L Anion Gap 15 (12-20) BUN 22 H (9-16) mg/dL Creatinine 0.85 (0.5-1.4) mg/dL Estim Creat Clear Calc 55.2 Estimated GFR > 60 Random Glucose 144 H (60-115) mg/dL Calcium 9.7 (8.4-10.2) mg/dL Magnesium 2.3 (1.6-2.6) mg/dL Total Bilirubin 0.4 (0.0-1.0) mg/dL Direct Bilirubin 0.1 (0.0-0.5) mg/dL AST 40 H (5-31) U/L ALT 56 H (0-31) U/L Alkaline Phosphatase 127 H (39-117) U/L Troponin I High Sens < 2.7 8.8 D (<3.5-17.0) ng/L Total Protein 7.3 (6.5-8.0) g/dL Albumin 4.1 (3.5-5.0) g/dL Lipase 34 (8-78) U/L Influenza Type A (PCR) NEGATIVE (Negative) Influenza Type B (PCR) NEGATIVE (Negative) RSV RNA Qual (PCR) NEGATIVE (Negative) SARS-CoV-2 RNA (RT-PCR) NEGATIVE (Negative) Independent Interpretation I performed an independent interpretation of an: EKG Interpretation: Rate: 102 Rhythm: sinus tachycardia with PVCs [place]: left, LVH Normal P waves. Normal JESSICA. Normal QRS complex. ST T wave : no FREDDY, inverted t waves V3-V6, II, III, aVF qTC: 461 prior studies: changed from 2022 The study has been interpreted contemporaneously by me. EKG #2 Rate: 83 Rhythm: NSR [place]: left Normal P waves. Normal JESSICA. Normal QRS complex. ST T wave : no FREDDY, flat t waves inf leads, T wave inversions V3-V6 qTC: 455 prior studies: changed from 2022 The study has been interpreted contemporaneously by me. . Independent Historian Clinical information obtained from an independent historian. History obtained from or confirmed by: EMS External Record Review External record reviewed: Outpatient record Discharge Plan Discharge Clinical Impression: Nausea & vomiting, Abnormal ECG Patient Disposition: Admitted As Inpatient Prescriptions: No Action calcium carbonate-vitamin D3 [Oyster Shell Calcium-Vit D3] 500 mg-5 mcg (200 unit) tablet 1 tab PO BID losartan-hydrochlorothiazide 50-12.5 mg tablet 1 tab PO DAILY cyclobenzaprine 10 mg tablet 10 mg PO BEDTIME amlodipine 5 mg tablet 5 mg PO DAILY ibuprofen 400 mg tablet 400 mg PO TID PRN (Reason: pain) Qty: 90 3RF Rx Instructions: take with food diclofenac sodium [Voltaren Arthritis Pain] 1 % gel 1 - 2 g topical BID Qty: 100 3RF Rx Instructions: apply to affected hand joints (DME) Wrist Brace Misc See Rx Instructions miscellaneous .MEDSUPPLY Qty: 2 0RF Rx Instructions: use on the wrists at night (DME) Wrist Brace Misc See Rx Instructions miscellaneous .MEDSUPPLY Qty: 2 0RF Rx Instructions: As directed (DME) SOUTH Knee Brace Misc See Rx Instructions .Route Qty: 2 0RF Rx Instructions: As directed prednisone 5 mg tablet 5 mg PO BID Qty: 60 3RF Print Language: Gambian
--- NOTE | 2024-10-03 16:58 | ECG_ITS ---
Test Reason : WEAKNESS Blood Pressure : */* mmHG Vent. Rate : 102 BPM Atrial Rate : 102 BPM P-R Int : 164 ms QRS Dur : 82 ms QT Int : 354 ms P-R-T Axes : 52 5 188 degrees QTcB Int : 461 ms Sinus tachycardia with occasional Premature ventricular complexes Possible Left atrial enlargement ST & T wave abnormality, consider anterolateral ischemia vs related to left heart strain Abnormal ECG When compared with ECG of 21-Mar-2016 15:57, Premature ventricular complexes are now Present anterior T inversions Referred By: Gina Randall Electronically Signed By: VICTOR HUGO KRAMER
[2024-10-03 16:59] VITALS: BP 125/76; PULSE 107; RESP 20; TEMP 36.8; O2SAT 95; BMI 21.6
[2024-10-03] MEDS: 0.9 % Sodium Chloride 500 ML IV (17:23)
[2024-10-03 17:24] VITALS: BP 131/75; PULSE 99; RESP 24; TEMP 36.7; O2SAT 96
[2024-10-03 17:28] LABS: MANUAL DIFF FLAG NO
[2024-10-03] MEDS: ondansetron HCL 4 MG/2 ML VIAL IVPUSH (17:30)
[2024-10-03 17:37] LABS: Basophils Percent Auto 0.2 % (0-2); Eosinophils Absolute Auto 0.2 X10*3/uL (0.0-0.4); Eosinophils Percent Auto 1.7 % (0-4); Hematocrit 44.2 % (37.0-47.0); Hemoglobin 15.1 g/dl (12.0-16.0); Imm Gran Abs Auto 0.09 X10*3/uL (0.00-0.03); Lymphocytes Absolute Auto 2.8 X10*3/uL (1.2-4.9); Lymphocytes Percent Auto 31.3 % (20-40); Mean Corpuscular HGB Conc 34.2 g/dl (31.0-35.0); Mean Corpuscular Hemoglobin 27.6 pg (27.0-33.0); Mean Corpuscular Volume 80.8 fL (80.0-98.0); Mean Platelet Volume 10.8 fL (9.4-12.3); Monocytes Absolute Auto 0.5 X10*3/uL (0.1-1.2); Monocytes Percent Auto 5.4 % (2-11); Neutrophils Absolute Auto 5.4 x10*3/uL (2.0-8.3); Neutrophils Percent Auto 60.4 % (45-73); Platelet Count 213 X10*3/uL (160-400); Red Blood Count 5.47 X10*6/uL (4.20-5.50); Red Cell Distribution Width 13.8 % (11.0-16.0); White Blood Count 8.9 X10*3/uL (4.8-10.8)
--- OUTSIDE RECORDS SUMMARY | 2024-10-03 17:43 | XMS_ITS | Clinical Summary ---
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 Active Bacitracin-Polymyxin B (SM Double Antibiotic) 500-05615 UNIT/GM Ointment APPLY TO THE AFFECTED AREA(S) TOPICALLY 1-2 TIMES DAILY 05/01/2023 Active Calcium Carb-Cholecalciferol (Oyster Shell Calcium w/D) 500-5 MG-MCG Tab Take 1 tablet by mouth 2 (two) times a day. 05/08/2023 Active losartan-hydroCHLORO thiazide (HYZAAR) 50-12.5 MG per tablet Take 1 tablet by mouth daily. 03/01/2023 Active SODIUM FLUORIDE, DENTAL GEL, 1.1 % Gel USE DIRECTED BEFORE BEDTIME 04/25/2023 Active amLODIPine (NORVASC) 5 MG tablet Take 1 tablet (5 mg total) by mouth. 09/10/2022 Active predniSONE (DELTASONE) 5 MG tablet Take 1 tablet (5 mg total) by mouth 2 (two) times a day. With food. Active amoxicillin-clavulan ate (AUGMENTIN) 875-125 MG per tabletIndications:De ntal abscess Take 1 tablet by mouth 2 (two) times a day. 14 tablet 05/13/2023 Active Active Problems Problem Noted Date Diagnosed Date Cellulitis 05/11/2023 Social History Tobacco Use Types Packs/Day Years Used Date Smoking Tobacco: Never Assessed AUDIT-C Answer Date Recorded Q1: How often do you have a drink containing alcohol? Never 05/11/2023 Q2: How many drinks containi ng alcohol do you have on a typical day when you are drinking? Patient does not drink Q3: How often do you have si x or more drinks on one occasion? Never 05/11/2023 Overall Financial Resource Strain (CARDIA) Answe r Date Recorded How hard is it for you to pa y for the very basics like food, housing, medical care, and heating? Not hard at all 05/13/2023 Hunger Vital Sign Answer Date Recorded Within the past 12 months, y ou worried that your food would run out before you got the money to buy more. Never true 05/13/20 23 Within the past 12 months, t he food you bought just didn't last and you didn't have money to get more. Never true 05/13/2023 PRAPARE - Transportation Answer Date Re corded In the past 12 months, has l ack of transportation kept you from medical appointments or from getting medications? No 09/2022 In the past 12 months, has l ack of transportation kept you from meetings, work, or from getting things needed for daily living? No 05/13/2023 Housing Stability Vital Sign Answer Malcolm e Recorded In the last 12 months, was t here a time when you were not able to pay the mortgage or rent on time? No 05/13/2023 In the last 12 months, how many places have you lived? 1 05/13/2023 In the last 12 months, was t here a time when you did not have a steady place to sleep or slept in a retirement (including now)? No 05/13/2023 Sex and Gender Information Value Date Recorded Sex Assigned at Female 05/11/2023 12:15 AM EDT Gender Identity Female 05/11/2023 12:15 AM EDT Sexual Orientation Heterosexual (straight) 05/11 12:15 AM EDT Last Filed Vital Signs Vital Sign Reading Time Taken Comments Blood Pressure 135/87 05/13/2023 7:36 AM EDT Pulse 77 05/13/2023 7:36 AM EDT Temperature 36.4 ??C (97.6 ??F) 05/13/2023 7:36 AM ED T Respiratory Rate 18 05/13/2023 7:36 AM EDT Oxygen Saturation 99% 05/13/2023 7:36 AM EDT Inhaled Oxygen Concentration - - Weight - - Height - - Body Mass Index - - Plan of Treatment Health Maintenance Due Date Last Done Comments Hepatitis C Virus Screening 1950 DTaP/Tdap/Td Vaccines (1 - Tdap) 1970 Mammogram 1991 Colonoscopy 1996 Pneumococcal Vaccines 50+ (1 of 1 - PCV) 2001 Zoster (Shingles) Vaccine (1 of 2) 2001 DXA Bone Density (Females,Ag es 65 and older) 2016 Influenza Vaccine 03/12/2024 COVID-19 Vaccine ( - 2023-2 5 season) 2024 RSV Vaccine 60 years and old er and Patients (1 - 1-dose 75+ series) 2026 Hepatitis B Vaccines Aged Out No long er eligible based on patient's age to complete this topic Advance Directives * Full Code (Latest Code Status on File) Date Activated Date Inactivated Comments 05/11/2023 5:58 AM Question Answer Comments Decision Thoroughly Discussed with: Patient Care 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
--- OUTSIDE RECORDS SUMMARY | 2024-10-03 17:43 | XMS_ITS | Data Portability ---
Author Organization [employer] [facility], Ct in - [facility] Address [address] [place] [id number] Care Team Providers Care Talent Director Name Role Phone CHADLIOR ANGUIANO Referring Provider Assessment Encounter Date Assessment Date Assessment LastModified by Organization Details LastModified Time 05/03/2023 05/03/2023 I provided real -time medical direction via phone for this encounter, and was available for additional phone based assistance as needed. I have reviewed and agree with the Assessment and Plan as documented by the Senior Recruiter. Patient given the opportunity to ask questions. She requested a friend come over because she was so nervous-[place]amibian language line application software engineer on for visit, questions and explanations Advised to call our service that she feels another visit, the close follow-up with PCP is warranted to call tomorrow -see if she can move up her May for his appointment. The medic wrote CRC's phone number down for the patient 1- [phone]; the patient could likely be read back the numbers on the paper I advised via the application software engineer who also spoke with her friend- if develops CP/severe SOB/turning blue/uncontrolle d n/v/ syncope/ hi fever to call 911-she verbalized understanding of instructions Not available 05/04/2023 02:15:29 Plan of Treatment Reminders Order Date Submit Date Provider Last Modified By Organization Details Last Modified Time Details Appointments None recorded. Lab BMP, serum or plasma 2022 023 [email or web address] 0 [facility], [address] [place] [address], [phone], 02:19:04 rapid SARS CoV 2 Ag, QL IA, respiratory specimen 2022 023 LUCA [facility], [address] [place] [address], [phone], 3 09:05:36 Referral None recorded. Procedures None recorded. Surgeries None recorded. Imaging None recorded. Medication Orders sodium chloride 0.9 % intravenous solution 2022 023 [email or web address] 0 Not available 02:19:04 Patient TargetsNo targets recorded. Patient Instructions Encounter Date Encounter Id Patient Instructions Last Modified By Organization Details Last Modified Time 05/03/2023 [id number] orthostatic vitals* - see vs [email or web address] Not available 05/04/2023 02:19:04 Reason for Referral None Reported. Results Created Date Observation Date Name Description Value Unit Range Abnormal Flag Note LastModifiedBy Organization Detail LastModifiedTime 05/04/2005/04/2023 rapid SARS CoV 2 Ag, QL IA, respi rator y speci men rapid SARS CoV 2 Ag, QL IA, respiratory specimen negati ve Not Available Main - Inst ed [address] [place] [address], [phone], 05/03/2023 14:19:53 05/04/2005/04/2023 BMP, serum or plasm a BUN 16 Not Available Main - Ins [address], [phone], 05/03/2023 14:18:44 05/04/2005/04/2023 BMP, serum or plasm a Ca Ionize d calciu m 1.3 Not Available Main - Inst ed [address] [place] [address], [phone], 05/03/2023 14:18:44 05/04/2005/04/2023 BMP, serum or plasm a CI- 105 Not Available Main - Ins [address], [phone], 05/03/2023 14:18:44 05/04/2005/04/2023 BMP, serum or plasm a CRE 1 Not Available Main - Ins [address], [address], 05/03/2023 14:18:44 05/04/2005/04/2023 BMP, serum or plasm a GLU 109 Not Available Main - Ins [address], [phone], 05/03/2023 14:18:44 05/04/2005/04/2023 BMP, serum or plasm a K+ 3.6 Not Available Main - Ins [address], [address], 05/03/2023 14:18:44 05/04/2005/04/2023 BMP, serum or plasm a Na+ 143 Not Available Main - Ins [address], [address], 05/03/2023 14:18:44 05/04/2005/04/2023 BMP, serum or plasm a tCO2 26 Not Available Main - Ins [address], [id number], 05/03/2023 14:18:44 Result Notes None recorded. Medical Equipment None Reported. Allergies No known drug allergies Medications Name Sig Start Date Stop Date Status Note LastModified by Organization Details LastModified Time amoxicillin 500 mg capsule TAKE 1 CAPSULE BY MOUTH EVERY 8 HOURS FOR 7 DAYS active Not Available Not Available No t Available prednisone 5 mg tablet TAKE 1 TABLET BY MOUTH TWICE DAILY active Not Available Not Available No t Available amlodipine 5 mg tablet TAKE 1 TABLET BY MOUTH ONCE DAILY active Not Available Not Available No t Available acetaminophe n 500 mg tablet TAKE 2 TABLETS BY MOUTH EVERY 6 HOURS NEEDED FOR HEADACHE OR FOR MILD PAIN active Not Available Not Available No t Available isoniazid 300 mg tablet TAKE 1 TABLET BY MOUTH EVERY DAY active Not Available Not Available No t Available ibuprofen 400 mg tablet TAKE 1 TABLET BY MOUTH THREE TIMES DAILY WITH FOOD NEEDED FOR PAIN active Not Available Not Available No t Available sodium chloride 0.9 % intravenous solution Inject 1000 mL by intravenous route. 2022 active Not Available Not Available Not Avai lable ibuprofen 600 mg tablet TAKE 1 TABLET BY MOUTH EVERY 6 HOURS FOR 5 DAYS NEEDED active Not Available Not Available No t Available losartan 50 mg-hydrochlo rothiazide 12.5 mg tablet TAKE 1 TABLET BY MOUTH ONCE DAILY active Not Available Not Available No t Available sodium fluoride 1.1 % dental gel USE DIRECTED BEFORE BEDTIME active Not Available Not Available No t Available Oyster Shell Calcium-Risa min D3 500 mg-5 mcg (200 unit) tablet TAKE 1 TABLET BY MOUTH TWICE DAILY active Not Available Not Available No t Available blood pressure test kit-large cuff USE TO CHECK BLOOD PRESSURE TWICE DAILY active Not Available Not Available Not Available Double Antibiotic (bacitrcn zn) 500 unit-10,000 unit/gram top ointment APPLY TO THE AFFECTED AREA(S) TOPICALLY 1-2 TIMES DAILY active Not Available Not Available No t Available Vitals Date Recorded Body temperature Body height Respiratory rate Heart rate Oxygen saturation Oxygen saturation in Arterial blood by Pulse oximetry Systolic blood pressure Diastolic blood pressure Provider Name and Address Organization Details Last Updated DateTime 98.3 [degF] 157.48 cm 18 /min 90 /min 95 % 95 % 128 mm[Hg] 86 mm[Hg] Not Available [facility] production 14:07:51 Date Recorded Body weight Body mass index (BMI) Provider Name and Address Organization Details Last Updated DateTime 05/03/2023 91461.9 g 21.6 kg/m2 May Solomon MD [address] [place] [address],[address], [place], [phone], [facility] 05/03/2023 14:08:50 Social History None recorded. Functional Status None recorded. Mental Status None recorded. Family History Nothing Reported. Medical History No medical history recorded. Gynecological HistoryNo gynecological history recorded. Obstetrics History GPAL:G 0 P 0 0 0 0 Past Encounters Encounter ID Performer Location Encounter Start Date Encounter Closed Date Diagnosis/Indication Diagnosis SNOMED-CT Code Diagnosis ICD10 Code Diagnosis Note [id number] May Solomon MD [facility] [employer] [address] [place] [phone] 05/03/2023 14:07:49 05/04/2023 02:19:18 Accidental fall 487172645 W19.XXXS Patient orthostati c so ordered BMP/COVID test done for reassuranc e-patient not tachycardi c, denies chest pain or palpitatio n, heart rate is regular EKG not clinically indicated at this timeStatus post IV fluids standing blood pressure is 129/87 with a regular pulse of 81 improved from earlier-sh e denies current dizzinessA dvised patient to change positions slowly and drink lots of fluids Health Concerns Section Related Observation LastModified by Organization Detai ls LastModified Time None Recorded Concern Status LastModified by Organization Details LastModified Time None Recorded Advance Directives Directive None Recorded Payers Encounter Date Sequence Insurance Name Policy Number Policy Yoder Covered Member ID Yoder Member ID Guarantor Name 05/03/2023 1 [facility] - DOS ON OR AFTER 2022 - DUAL ELIGIBLE - LONGTERM OPTIONS AND ONE CARE (MEDICARE REPLACEMENT/AD VANTAGE - HMO) Lotus Bagley [id number] Lotus Bagley Notes Date Note Type Note Provider Name and Address Organization Details Recorded Time 05/03/2023 text/html HPI: Member reported high BP this AM and feeling weak and dizzy, had a fall 4 days ago, has bruising on face, arms and legs, stated started taking an old antibiotic to help with facial swelling, in pain and not given anything at [facility]. Has appt with her PCP on 05/15 at [facility]. Member is 72, female, illiterate, HTN, panic attacks, L leg pain, carpal tunnel syndrome, arthritis, memory impairment, unsteady gait, frequent falls, paranoid schizophrenia, incontinence and RA with severe pains as baseline. Member is due for TAVR for severe aortic stenosis with Dr. Orellana at [facility], and has been hesitant about getting the Cardiac Cath with procedure for fear of recovery. Reviewing further with PCP and Angle Shear Operator to make a decision. Stated at times dizzy, but not today, stated she fell due tripping outside on a step. ................... ................... ................... ................... ................... ................... ................... ........ [facility] Nursing Assessment: Comments: Reviewed - Diane CARTWRIGHT: Patient exceedingly anxious regarding her blood pressure which was normal on EMS arrival. Discharge paperwork from [facility] reports CT scans(pleural) were negative but does not list exactly what scans were done ie head & or neck-patient states she was told her head was normal. She was given bacitracin -polymyxin to apply on the abrasions on her face. She started taking amoxicillin because she thought the swelling was due to infection-she denies headache, current dizziness, fever, chills, nausea vomiting or diarrhea, chest pain, palpitations or shortness of breath, abdominal pain. She does complain of neck pain on movement. She went to [facility] the day after her ER visit for her neck and they are supposed to be ordering her a neck brace.Patient has no COVID symptoms but is anxious that she was exposed to COVID while in the ER................. ................... ................... ................... ................... ................... ................... .......... Senior Recruiter Note From Anaid Patricio: Sent to a call for a pt complaining of hypertension, weakness, dizziness, and pain after a fall. [employer] arrives on scene,application software engineer line used during visit as pt's primary language is Namibian. Pt is alert and oriented to person, place, and situation (pt states it is normal for her to not remember date/year/month). Pt is extremely anxious and states she is concerned about her blood pressure and neck pain. Pt denies headache, dizziness, cp, sob, n/v/d, abd pain, fever, or loc. (sitting) BP:128/86, P:90, RR:18, SpO2:95% RA, T:98.3; Head: abrasions noted on pt's forehead, nose, and near left eye; Neck: no neck tenderness, Limited movement in neck due to pain with movement; Lung sounds: clear bilaterally; Abdomen: soft, non-tender, no distention; Back: no tenderness or deformities noted; Extremities: small bruise noted on knuckle of pt's left thumb; otherwise extremities: unremarkable, (+)CSM x 4; Skin: pink, warm, dry; Pt is reassured her blood pressure is normal when sitting. Pt states she fell down one stair 4 days ago and was evaluated in [facility] ED. D/C paperwork states pt's CT scans (not specified) were normal, with no broken bones. Pt was discharged with script for Acetaminophen and Neosporin (for facial abrasions). Pt states she had neck pain after the fall and went to [facility] on 05/01. Pt states she is waiting for a neck brace prescribed by [facility]. Pt has been taking Acetaminophen and Ibuprofen as prescribed. Pt states she took some Amoxicillin 500mg capsules that she was prescribed in the past because she thought it would help with swelling. Pt unsure how many she has taken, but states at least one today. Pt advised she should stop taking Amoxicillin. [facility] consulted and orders orthostatics. (supine)BP:139/87, P:74, (standing) BP:113/78, P:86; [facility] orders POC bloodwork and Normal Saline 500ml IV; Pt becomes extremely nervous and has trouble believing she is dehydrated. Pt education attempted. Pt then calls a neighbor, who's presence servers as a great calm for pt. Pt agrees to blood draw and IV fluids. Pt also requests rapid covid test to ensure she did not contract covid while at ED. IV access established, blood draw performed; Results for I[employer] Chem 8+: uploaded to [employer]. Rapid covid test: neg; Normal Saline 500ml IV administered, and pt states she is feeling better. Lung sounds: clear bilaterally; (standing) BP:129/87, P:81; C/application software engineer advise pt her blood pressure is normal. Pt is advised covid test:neg; [facility]. Pt advised to continue using Neosporin, Tylenol, and Ibuprofen as prescribed. Red flags discussed. Pt is advised to keep upcoming appt with PCP (possibly in May). Pt has no further questions. ................... ................... ................... ................... ................... ................... ................... ........ Disposition: Fulfilled May Solomon MD [address] [place] [address],[address] [facility], [place], [phone], [facility] 05/04/2023 20:32:50 OBGyn Episode No OBEpisode recorded.
--- OUTSIDE RECORDS SUMMARY | 2024-10-03 17:43 | XMS_ITS | Encounter Summary ---
Author Organization [employer] [facility] Address [address] [place] [address] Care Team Providers Care Electrical Maintenance Technician Name Role Phone Elidia Shepherd MD Primary Care Provider [phone]- [phone] Encounter Details Date Type Department Care Team (Late st Contact Info) Description 09/18/2022 Abstract [facility] [address] [place] [address] [phone] Elidia Shepherd MD [address] [place] [address] [phone] Social History Tobacco Use Types Packs/Day Years Used Date Smoking Tobacco: Never Assessed Comments Unknown Sex and Gender Information Value Date Recorded Sex Assigned at Female 06/11/2022 10:16 AM EDT Legal Sex Female 10:16 AM EDT Gender Identity Female 06/11/2022 10:16 AM EDT Sexual Orientation Straight 06/11/2022 10 :16 AM EDT documented as of this encounter Plan of Treatment Upcoming Encounters Date Type Department Care Team (Late st Contact Info) Description 12/28/2024 11:00 AM EDT Office Visit [facility] [address] [place] [address] [phone] Elidia Shepherd MD [address] [place] [address] [phone] documented as of this encounter Procedures Procedure Name Priority Date/Time Associated Diagnosis Comments MAMMOGRAPHY Routine 05/07/2017 PAP SMEAR Routine 09/03/2014 12:00 AM EST documented in this encounter Results * Hm Mammography (05/07/2017) Mammogram BIRADS 1 Anatomical Region Laterality Modality Other Historical Provider HEALTH MAINTENANCE Final Result * Pap Smear (09/03/2014 12:00 AM EST) Swab Historical Provider LAB CYTOLOGY ORDERABLES F inal Result IMAGING documented in this encounter Visit Diagnoses Not on filedocumented in this encounter Care Teams Electrical Maintenance Technician Relationship Specialty Start Date End Date Elidia Shepherd MD [address] [place] [phone] PCP - General Family Medicine 08/12/18 documented as of this encounter
--- OUTSIDE RECORDS SUMMARY | 2024-10-03 17:43 | XMS_ITS | Encounter Summary ---
Author Organization [employer] Address [address] [place] [address] Care Team Providers Care Airplane Designer Name Role Phone Elidia Shepherd MD Primary Care Provider [phone]- [phone] Reason for Visit * Reason Comments Med Refill Encounter Details Date Type Department Care Team ([facility] st Contact Info) Description 05/21/2023 Refill [facility] [address], [place] [phone] Eric Nair MD [address] [place] [address] Social History Tobacco Use Types Packs/Day Years Used Date Smoking Tobacco: Never Passive Smoke Exposure: Never Smokeless Tobacco: Never Depression Answer Date Recorded Patient Health Questionnaire-9 Score 0 11/21/2022 Housing Stability Answer Date Recorded What is your housing situation today? I have marcin bustos 05/20/[address] you li ve. Do you have problems with any of the following? None of the above 05/20/2023 Food Insecurity Answer Date Recorded Within the past 12 months, y ou worried that your food would run out before you got money to buy more: Never True 05/20/2023 Within the past 12 months,th e food you bought just didn't last and you didn't have enough money to get more: Never True 04/2023 Transportation Answer Date Recorded In the past 12 months, has l ack of transportation kept you from medical appts, meetings, work or from getting things needed for daily living? No 05/20/2023 Utilities Answer Date Recorded In the past 12 months, has t he electric, gas, oil or water [employer] threatened to shut off services in your home? No 05/20/2023 Depression Answer Date Recorded Patient Health Questionnaire-2 Score 0 11/21/2022 Comments Unknown Sex and Gender Information Value [...] Description 12/28/2024 11:00 AM EDT Office Visit [facility] [address] [place] [address] Elidia Shepherd MD [address] [place] [address] documented as of this encounter Visit Diagnoses Not on filedocumented in this encounter Additional Health Concerns Assessment Noted Time PHQ-9 Depression Total Score: 0 11/22/19 23 9:33 AM EDT documented as of this encounter Care Teams Airplane Designer Relationship Specialty Start Date End Date Elidia Shepherd MD [address] [place] [address] PCP - General Family Medicine 08/12/18 documented as of this encounter
--- OUTSIDE RECORDS SUMMARY | 2024-10-03 17:43 | XMS_ITS | Clinical Summary ---
Author Organization [employer] Address [address] [place] [address] Care Team Providers Care Associate Embalmer/Funeral Director Name Role Phone Elidia Shepherd MD Primary Care Provider [phone] Allergies No known active allergies Medications Calcium Carb-Cholecalcife rol (Oyster Shell Calcium w/D) 500-5 MG-MCG tabletIndications :Osteopenia, unspecified location Take 1 tablet by mouth 2 times daily. 180 tablet 3 06/15/2024 Active amLODIPine (Norvasc) 5 MG tabletIndications :Primary hypertension Take 1 tablet (5 mg) by mouth Once per day. 90 tablet 3 06/15/2024 Active losartan (Cozaar) 50 MG tabletIndications :Primary hypertension Take 1 tablet (50 mg) by mouth Once per day. 90 tablet 3 06/15/2024 Active Active Problems Problem Noted Date Diagnosed Date Urinary incontinence 06/16/2024 Overview (06/16/2024): Pt request medium pull-ups, referred again 06/15/24 Assessment & Plan (06/16/2024 5:53 AM EST): Pt request medium pull-ups, referred again 06/15/24 Breast cancer screening by mammogram 01/16/2024 Overview (06/15/2024): -order placed 05/15/2023, given pt the number to call and advised to follow-up 01/16/2024. -new order placed 06/15/24, UNDERWRITING ANALYST aware Assessment & Plan (06/16/2024 5:58 AM EST): -order placed 05/15/2023, given pt the number to call and advised to follow-up 01/16/2024. -new order placed 06/15/24, UNDERWRITING ANALYST aware Assessment & Plan (01/16/2024 10:41 AM EDT): -order placed 05/15/2023, given pt the number to call and advised to follow-up 01/16/2024. Colon cancer screening 09/18/2023 Overview (06/15/2024): -declined colonoscopy -cologuard order placed 05/2023, discussed with UNDERWRITING ANALYST how to obtain sample. -cologuard placed again 01/16/2024 ad again on 06/15/24, UNDERWRITING ANALYST aware and has video on how to obtain sample Assessment & Plan (06/16/2024 5:58 AM EST): -declined colonoscopy -cologuard order placed 05/2023, discussed with UNDERWRITING ANALYST how to obtain sample. -cologuard placed again 01/16/2024 ad again on 06/15/24, UNDERWRITING ANALYST aware and has video on how to obtain sample Assessment & Plan (01/16/2024 10:39 AM EDT): -declined colonoscopy -cologuard order placed 05/2023, discussed with UNDERWRITING ANALYST how to obtain sample. -cologuard placed again 01/16/2024 Cellulitis 05/11/2023 Other specified health status 05/08/2023 Overview (06/16/2024): -next physical exam due after 06/15/2025 -eye care recommended -dental home is [facility] -health care proxy filed 06/15/24 Assessment & Plan (06/16/2024 5:55 AM EST): -next physical exam due after 06/15/2025 -eye care recommended -dental home is [facility] -health care proxy filed 06/15/24 Assessment & Plan (01/16/2024 10:41 AM EDT): -next physical exam due after 05/15/2024 -eye care recommended -dental home is [facility] Assessment & Plan (05/15/2023 10:07 AM EDT): -next physical exam due after 05/15/2024 -eye care facilitated by -dental home is Complex care coordination 11/21/2022 Overview (06/15/2024): -New care team specialistTanvi, [facility] [phone]. 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 Geriatric Bottom Filler Vi Drummond -Personal care: Homemaker services Call placed to [facility] with Deyanira Becker 11/21/2022 to discuss concerns about pts inability to understand severity of her condition and lack of follow through with cardiology and Tb clinic. Deyanira will assist with Tb clinic and cardiology. Placed VNA with [facility] for daily TB meds, cardiac teaching, mediation assistance. Spoke with Ceci, therapist who continues to work with pt to encourage medical compliance. Assessment & Plan (06/16/2024 5:57 AM EST): -New care team specialistTanvi, [facility] [phone]. 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 Geriatric Bottom Filler Vi Drummond -Personal care: Homemaker services Call placed to [facility] with Deyanira Becker 11/21/2022 to discuss concerns about pts inability to understand severity of her condition and lack of follow through with cardiology and Tb clinic. Deyanira will assist with Tb clinic and cardiology. Placed VNA with [facility] for daily TB meds, cardiac teaching, mediation assistance. Spoke with Ceci, therapist who continues to work with pt to encourage medical compliance. Assessment & Plan (01/16/2024 7:31 PM EDT): -UNDERWRITING ANALYST Tanvi, sofya Hagan Years [phone]. 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 Deyanira will assist with Tb clinic and cardiology. Placed VNA with [facility] for daily TB meds, cardiac teaching, mediation assistance. Spoke with Ceci, therapist who continues to work with pt to encourage medical compliance. Assessment & Plan (05/15/2023 1:04 PM EDT): -Therapist Mara Coleman at [facility] [phone] -[facility] care team Deyanira Becker [phone] [id number] -[facility] Geriatric Bottom Filler Vi Drummond -PC Miranda Drummond [facility] [phone] Call placed to [facility] with Deaynira Becker 11/21/2022 to discuss concerns about pts inability to understand severity of her condition and lack of follow through with cardiology and Tb clinic. Deyanira will assist with Tb clinic and cardiology. I have placed VNA with [facility] for daily TB meds, cardiac teaching, mediation assistance Assessment & Plan (11/21/2022 10:44 AM EDT): -Therapist Mara Coleman at [facility] [phone] -[facility] care team Deyanira Cline Becker [phone] [id number] -[facility] Geriatric Bottom Filler Vi Drummond Call placed to [facility] with Deyanira Becker 11/21/2022 to discuss concerns about pts inability to understand severity of her condition and lack of follow through with cardiology and Tb clinic. Deyanira will assist with Tb clinic and cardiology. I will place VNA with [facility] for daily TB meds, cardiac teaching, mediation assistance Illiteracy 10/17/2022 [place]: positive 10/17/2022 Overview (05/15/2023): TB clinic NOS x 3- case closed Treated by [facility] rheumatology with spotty therapy with isoniazid. From 12/08/21 she picked up every other month. Was to be completed 02/09/23 Patient's fill history for isoniazid is as follows all for 30 day supplies: ? ? 12/08/21 ? ? 02/20/22 ? ? 03/28/22 ? ? 04/24/22 ? ? 09/10/22 ? ? 11/01/22 She has not been able to comply with complete of therapy despite extensive social media marketing manager. Assessment & Plan (06/16/2024 5:54 AM EST): TB clinic NOS x 3- case closed Treated by [facility] rheumatology with spotty therapy with isoniazid. From 12/08/21 she picked up every other month. Was to be completed 02/09/23 Patient's fill history for isoniazid is as follows all for 30 day supplies: 12/08/21 02/20/22 03/28/22 04/24/22 09/10/22 11/01/22 She has not been able to comply with complete of therapy despite extensive social media marketing manager. Assessment & Plan (01/16/2024 10:43 AM EDT): TB clinic NOS x 3- case closed Treated by [facility] rheumatology with spotty therapy with isoniazid. From 12/08/21 she picked up every other month. Was to be completed 02/09/23 Patient's fill history for isoniazid is as follows all for 30 day supplies: 12/08/21 02/20/22 03/28/22 04/24/22 09/10/22 11/01/22 She has not been able to comply with complete of therapy despite extensive social media marketing manager. Assessment & Plan (05/15/2023 1:08 PM EDT): TB clinic NOS x 3- case closed Treated by [facility] rheumatology with spotty therapy with isoniazid. From 12/08/21 she picked up every other month. Was to be completed 02/09/23 Patient's fill history for isoniazid is as follows all for 30 day supplies: ? ? 12/08/21 ? ? 02/20/22 ? ? 03/28/22 ? ? 04/24/22 ? ? 09/10/22 ? ? 11/01/22 She has not been able to comply with complete of therapy despite extensive social media marketing manager. Medically noncompliant 10/17/2022 Overview (05/15/2023): Patient is not able to follow reasoning for medications. Ongoing chanllaenge. Assessment & Plan (01/16/2024 10:43 AM EDT): Patient is not able to follow reasoning for medications. Ongoing chanllaenge. Assessment & Plan (05/15/2023 10:02 AM EDT): Patient is not able to follow reasoning for medications Ongoing chanllaenge. Seropositive rheumatoid arthritis 10/17/2022 Overview (12/11/2023): Diagnosed 11/2021. Seen by rheumatology, Rc Schwab MD with [facility] 03/28/2022. -She had a positive response to prednisone and would need to be transitioned to medications that would have less residential toxicity such as methotrexate. However, it is unclear if she is taking her methotrexate or isoniazid over the past few months. It is not being monitored and she cannot read the bottles therefore it is not safe to change her medication. A VNA referral was made and she will continue prednisone 5 mg twice a day. - Referral to TB clinic done 04/02/22 but she no showed 3 times -rheumatology note 03/07/23 reviewed. Pt is treating her RA with prednisone from [facility]. She has not demonstrated ability to comply with DMARD regimen and it is unlikely she will complete INH therapy. -rheumatology note 11/19/2023 Patient continues with severe hand pain and swelling. Does not want alternate medications. I again encourage that the Prednisone is not sufficient to treat the RA. She wants to return to her PCP to have him prescribe the prednisone. She also refuses to do lab work when requested saying that she will go to her PCP. I explained the disease process to the UNDERWRITING ANALYST and the need for certain medication. The UNDERWRITING ANALYST will try to talk with her and her son and get back to us if the patient agrees to follow-up. I have ordered the labs and told them to have those done if she decides to follow-up. -rheumatology note 06/2023 : Rheumatoid arthritis with unfortunately still ongoing active synovitis. There is also likely some osteoarthritis in the hands. I think she is taking the prednisone most days so that probably is why she looks a bit better than she was in the past when she was completely off the prednisone. I again tried to have a discussion with her about alternative treatments. The last set of blood work did show elevated transaminases making methotrexate or leflunomide not feasible. She would be a candidate for Humira since she did finish off the course of INH for her latent tuberculosis. She does not seem to have any respiratory symptoms presently. She does not want to hear about additional treatment beyond the prednisone and the diclofenac gel. I did give her refills on those items. At her insistence I did give her prescriptions for right and left wrist splints and right and left knee braces. I told her I am not sure her insurance would pay for those measures. I do not see any signs of a dental infection today so that seems to have cleared. A follow-up in 5 months or so would be reasonable. It would appear she is resistant to the idea of additional treatment for the rheumatoid arthritis. Additionally I do not think she could handle taking pills so the idea of a once every 2 week injection of Humira would be more feasible if given by a VNALetha Weeks however she refuses to consider the option. - rheumatology note 11/19/23 RA: Patient continues with severe hand pain and swelling. Does not want alternate medications. I again encourage that the Prednisone is not sufficient to treat the RA. She wants to return to her PCP to have him prescribe the prednisone. She also refuses to do lab work when requested saying that she will go to her PCP. I explained the disease process to the UNDERWRITING ANALYST and the need for certain medication. The UNDERWRITING ANALYST will try to talk with her and her son and get back to us if the patient agrees to follow-up. I have ordered the labs and told them to have those done if she decides to follow-up. -I spoke with rheumatology 11/22/23 to discuss this difficult case complicated by pt's refusal to follow with recommendations. They are happy to see pt but she has to get labs and be compliant with treatment and recommendations which pt has not done historically Assessment & Plan (06/16/2024 5:54 AM EST): Diagnosed 11/2021. Seen by rheumatology, Rc Schwab MD with [facility] 03/28/2022. -She had a positive response to prednisone and would need to be transitioned to medications that would have less residential toxicity such as methotrexate. However, it is unclear if she is taking her methotrexate or isoniazid over the past few months. It is not being monitored and she cannot read the bottles therefore it is not safe to change her medication. A VNA referral was made and she will continue prednisone 5 mg twice a day. - Referral to TB clinic done 04/02/22 but she no showed 3 times -rheumatology note 03/07/23 reviewed. Pt is treating her RA with prednisone from [place]. She has not demonstrated ability to comply with DMARD regimen and it is unlikely she will complete INH therapy. -rheumatology note 11/19/2023 Patient continues with severe hand pain and swelling. Does not want alternate medications. I again encourage that the Prednisone is not sufficient to treat the RA. She wants to return to her PCP to have him prescribe the prednisone. She also refuses to do lab work when requested saying that she will go to her PCP. I explained the disease process to the UNDERWRITING ANALYST and the need for certain medication. The UNDERWRITING ANALYST will try to talk with her and her son and get back to us if the patient agrees to follow-up. I have ordered the labs and told them to have those done if she decides to follow-up. -rheumatology note 06/2023 : Rheumatoid arthritis with unfortunately still ongoing active synovitis. There is also likely some osteoarthritis in the hands. I think she is taking the prednisone most days so that probably is why she looks a bit better than she was in the past when she was completely off the prednisone. I again tried to have a discussion with her about alternative treatments. The last set of blood work did show elevated transaminases making methotrexate or leflunomide not feasible. She would be a candidate for Humira since she did finish off the course of INH for her latent tuberculosis. She does not seem to have any respiratory symptoms presently. She does not want to hear about additional treatment beyond the prednisone and the diclofenac gel. I did give her refills on those items. At her insistence I did give her prescriptions for right and left wrist splints and right and left knee braces. I told her I am not sure her insurance would pay for those measures. I do not see any signs of a dental infection today so that seems to have cleared. A follow-up in 5 months or so would be reasonable. It would appear she is resistant to the idea of additional treatment for the rheumatoid arthritis. Additionally I do not think she could handle taking pills so the idea of a once every 2 week injection of Humira would be more feasible if given by a VNA. Micky however she refuses to consider the option. - rheumatology note 11/19/23 RA: Patient continues with severe hand pain and swelling. Does not want alternate medications. I again encourage that the Prednisone is not sufficient to treat the RA. She wants to return to her PCP to have him prescribe the prednisone. She also refuses to do lab work when requested saying that she will go to her PCP. I explained the disease process to the UNDERWRITING ANALYST and the need for certain medication. The UNDERWRITING ANALYST will try to talk with her and her son and get back to us if the patient agrees to follow-up. I have ordered the labs and told them to have those done if she decides to follow-up. -I spoke with rheumatology 11/22/23 to discuss this difficult case complicated by pt's refusal to follow with recommendations. They are happy to see pt but she has to get labs and be compliant with treatment and recommendations which pt has not done historically Assessment & Plan (01/16/2024 10:42 AM EDT): Diagnosed 11/2021. Seen by rheumatology, Rc Schwab MD with [facility] 03/28/2022. -She had a positive response to prednisone and would need to be transitioned to medications that would have less residential toxicity such as methotrexate. However, it is unclear if she is taking her methotrexate or isoniazid over the past few months. It is not being monitored and she cannot read the bottles therefore it is not safe to change her medication. A VNA referral was made and she will continue prednisone 5 mg twice a day. - Referral to TB clinic done 04/02/22 but she no showed 3 times -rheumatology note 03/07/23 reviewed. Pt is treating her RA with prednisone from [facility]. She has not demonstrated ability to comply with DMARD regimen and it is unlikely she will complete INH therapy. -rheumatology note 11/19/2023 Patient continues with severe hand pain and swelling. Does not want alternate medications. I again encourage that the Prednisone is not sufficient to treat the RA. She wants to return to her PCP to have him prescribe the prednisone. She also refuses to do lab work when requested saying that she will go to her PCP. I explained the disease process to the UNDERWRITING ANALYST and the need for certain medication. The UNDERWRITING ANALYST will try to talk with her and her son and get back to us if the patient agrees to follow-up. I have ordered the labs and told them to have those done if she decides to follow-up. -rheumatology note 06/2023 : Rheumatoid arthritis with unfortunately still ongoing active synovitis. There is also likely some osteoarthritis in the hands. I think she is taking the prednisone most days so that probably is why she looks a bit better than she was in the past when she was completely off the prednisone. I again tried to have a discussion with her about alternative treatments. The last set of blood work did show elevated transaminases making methotrexate or leflunomide not feasible. She would be a candidate for Humira since she did finish off the course of INH for her latent tuberculosis. She does not seem to have any respiratory symptoms presently. She does not want to hear about additional treatment beyond the prednisone and the diclofenac gel. I did give her refills on those items. At her insistence I did give her prescriptions for right and left wrist splints and right and left knee braces. I told her I am not sure her insurance would pay for those measures. I do not see any signs of a dental infection today so that seems to have cleared. A follow-up in 5 months or so would be reasonable. It would appear she is resistant to the idea of additional treatment for the rheumatoid arthritis. Additionally I do not think she could handle taking pills so the idea of a once every 2 week injection of Humira would be more feasible if given by a VNALetha Weeks however she refuses to consider the option. - rheumatology note 11/19/23 RA: Patient continues with severe hand pain and swelling. Does not want alternate medications. I again encourage that the Prednisone is not sufficient to treat the RA. She wants to return to her PCP to have him prescribe the prednisone. She also refuses to do lab work when requested saying that she will go to her PCP. I explained the disease process to the UNDERWRITING ANALYST and the need for certain medication. The UNDERWRITING ANALYST will try to talk with her and her son and get back to us if the patient agrees to follow-up. I have ordered the labs and told them to have those done if she decides to follow-up. -I spoke with rheumatology 11/22/23 to discuss this difficult case complicated by pt's refusal to follow with recommendations. They are happy to see pt but she has to get labs and be compliant with treatment and recommendations which pt has not done historically Assessment & Plan (05/15/2023 12:58 PM EDT): Diagnosed 11/2021. Seen by rheumatology, Rc Schwab MD with [facility] 03/28/2022. -She had a positive response to prednisone and would need to be transitioned to medications that would have less residential toxicity such as methotrexate. However, it is unclear if she is taking her methotrexate or isoniazid over the past few months. It is not being monitored and she cannot read the bottles therefore it is not safe to change her medication. A VNA referral was made and she will continue prednisone 5 mg twice a day. - Referral to TB clinic done 04/02/22 but she no showed 3 times -rheumatology note 03/07/23 reviewed. Pt is treating her RA with prednisone from [place]. She has not demonstrated ability to comply with DMARD regimen and it is unlikely she will complete INH therapy. Assessment & Plan (11/20/2022 10:01 AM EDT): Diagnosed 11/2021. Seen by rheumatology, Rc Schwab MD with [facility] 03/28/2022. She had a positive response to prednisone and would need to be transitioned to medications that would have less residential toxicity such as methotrexate. However, it is unclear if she is taking her methotrexate or isoniazid over the past few months. It is not being monitored and she cannot read the bottles therefore it is not safe to change her medication. A VNA referral was made and she will continue prednisone 5 mg twice a day. - Referral to TB clinic done 04/02/22. Severe aortic valve stenosis 10/17/2022 Overview (03/07/2023): Pt seen Dr. Orellana on 04/10/22. Echocardiagram showed sever . LV was 60%- 65%. He recommended valve replacement however Pt refuses. He recommended wacthing for worsening symptoms and repeating echo in 3 months. Pt did not follow up. She returned to Dr. Orellana 03/05/23 where recent echo mean gradient across aortic valve 63mm Hg. Peak 98 mmHg. The seriousness was discussed ingreat detail but she was not able to dempnstrate she understood. She needs a cardiac catherization and consideration of transcathete valve replacemnt however due to mental illness and lack of comprehansion, this may not be fesible. She is asymptomatic. I called her [facility] care transition manager Deyanira Becker [phone] on 03/07/23 and left message requesting call back to try and coordinate intervention. Ultimately we may have to file with elder services for self neglect if she can't demonstrate she understands risk and refuses procedure. Assessment & Plan (06/16/2024 5:53 AM EST): Pt seen Dr. Orellana on 04/10/22. Echocardiagram showed sever . LV was 60%- 65%. He recommended valve replacement however Pt refuses. He recommended wacthing for worsening symptoms and repeating echo in 3 months. Pt did not follow up. She returned to Dr. Orellana 03/05/23 where recent echo mean gradient across aortic valve 63mm Hg. Peak 98 mmHg. The seriousness was discussed ingreat detail but she was not able to dempnstrate she understood. She needs a cardiac catherization and consideration of transcathete valve replacemnt however due to mental illness and lack of comprehansion, this may not be fesible. She is asymptomatic. I called her [facility] care transition manager Deyanira Becker [phone] on 03/07/23 and left message requesting call back to try and coordinate intervention. Ultimately we may have to file with elder services for self neglect if she can't demonstrate she understands risk and refuses procedure. Assessment & Plan (01/16/2024 10:44 AM EDT): Pt seen Dr. Orellana on 04/10/22. Echocardiagram showed sever . LV was 60%- 65%. He recommended valve replacement however Pt refuses. He recommended wacthing for worsening symptoms and repeating echo in 3 months. Pt did not follow up. She returned to Dr. Orellana 03/05/23 where recent echo mean gradient across aortic valve 63mm Hg. Peak 98 mmHg. The seriousness was discussed ingreat detail but she was not able to dempnstrate she understood. She needs a cardiac catherization and consideration of transcathete valve replacemnt however due to mental illness and lack of comprehansion, this may not be fesible. She is asymptomatic. I called her [facility] care transition manager Deyanira Becker [phone] on 03/07/23 and left message requesting call back to try and coordinate intervention. Ultimately we may have to file with elder services for self neglect if she can't demonstrate she understands risk and refuses procedure. Assessment & Plan (05/15/2023 10:04 AM EDT): Pt seen Dr. Orellana on 04/10/22. Echocardiagram showed sever . LV was 60%- 65%. He recommended valve replacement however Pt refuses. He recommended wacthing for worsening symptoms and repeating echo in 3 months. Pt did not follow up. She returned to Dr. Orellana 03/05/23 where recent echo mean gradient across aortic valve 63mm Hg. Peak 98 mmHg. The seriousness was discussed ingreat detail but she was not able to dempnstrate she understood. She needs a cardiac catherization and consideration of transcathete valve replacemnt however due to mental illness and lack of comprehansion, this may not be fesible. She is asymptomatic. I called her [facility] care transition manager Deyanira Becker [phone] on 03/07/23 and left message requesting call back to try and coordinate intervention. Ultimately we may have to file with elder services for self neglect if she can't demonstrate she understands risk and refuses procedure Assessment & Plan (11/21/2022 9:51 AM EDT): Pt seen Dr. Orellana on 04/10/22. Echocardiagram showed sever . LV was 60%- 65%. He recommended valve replacement however Pt refuses. He recommended wacthing for worsening symptoms and repeating echo in 3 months. Pt did not follow up. -Will asisst in following up with cardiology. Hypertensive disorder 12/04/2021 Overview (06/15/2024): -Well controlled at home. -Continue Losartan -Continue Amlodipine 5mg Assessment & Plan (06/16/2024 5:53 AM EST): -Well controlled at home. -Continue Losartan -Continue Amlodipine 5mg Assessment & Plan (01/16/2024 10:44 AM EDT): -Well controlled at home. -Continue Losartan / HCTZ 50/12.5 -Continue Amlodipine 5mg Assessment & Plan (05/15/2023 9:55 AM EDT): -Well controlled at home. -Continue Losartan / HCTZ 50/12.5 -Continue Amlodipine 5mg Assessment & Plan (11/20/2022 10:01 AM EDT): -Well controlled at home. -Continue Losartan / HCTZ 50/12.5 -Continue Amlodipine 5mg Paranoid schizophrenia 12/04/2021 Overview (01/16/2024): Currently with Mara riggins. She would benefit from eval from psychiatry I am very hesitant to prescribe sedating meds due to long history of not taking meds correctly and taking more than prescribed. Pt is not able to conmprehend the seriousness and necessary treatment for her conditions. I will discuss with [facility] and consider a referral to elder services for self neglect. Therapist Mara [phone] Assessment & Plan (06/16/2024 5:55 AM EST): Currently with Mara therapist. She would benefit from eval from psychiatry I am very hesitant to prescribe sedating meds due to long history of not taking meds correctly and taking more than prescribed. Pt is not able to conmprehend the seriousness and necessary treatment for her conditions. I will discuss with [facility] and consider a referral to elder services for self neglect. Therapist Mara [phone] Assessment & Plan (01/16/2024 10:43 AM EDT): Currently with Mara therapist. She would benefit from eval from psychiatry I am very hesitant to prescribe sedating meds due to long history of not taking meds correctly and taking more than prescribed. Pt is not able to conmprehend the seriousness and necessary treatment for her conditions. I will discuss with [facility] and consider a referral to elder services for self neglect. Therapist Mara [phone] Assessment & Plan (05/15/2023 10:03 AM EDT): Currently with Mara therapist. She would benefit from eval from psychiatry I am very hesitant to prescribe sedating meds due to long history of not taking meds correctly and taking more than prescribed. Pt is not able to conmprehend the seriousness and necessary treatment for her conditions. I will discuss with [facility] and consider a referral to elder services for self neglect. Therapist Mara [phone] Assessment & Plan (11/21/2022 10:06 AM EDT): Currently with Mara therapist. She would benefit from eval from psychiatry I am very hesitant to prescribe sedating meds due to long history of not taking meds correctly and taking more than prescribed. Pt is not able to conmprehend the seriousness and necessary treatment for her conditions. I will discuss with [facility] and consider a referral to elder services for self neglect. Therapist Mara [phone] Elevated levels of transaminase & lactic acid de hydrogenase 05/22/2013 Fibromyalgia 03/18/2013 Pain in wrist 05/16/2012 Dyslipidemia 01/28/2012 Overview (06/15/2024): No statin given transaminitis of unclear etiology and noncompliance with medications. life-style modification discussed. Lab Results Component Value Date CHOLESTEROL 244 (H) 06/20/2020 LDLCHOL 162 (H) 06/20/2020 TRIG 210 (H) 01/13/2024 HDLCHOL 39 (L) 06/20/2020 CHOLHDLRAT 6.3 (H) 06/20/2020 -continue lifestyle modifications -she has not demonstrated ability to take statin as prescribed despite extensive social supports Assessment & Plan (06/16/2024 5:55 AM EST): No statin given transaminitis of unclear etiology and noncompliance with medications. life-style modification discussed. Lab Results Component Value Date CHOLESTEROL 244 (H) 06/20/2020 LDLCHOL 162 (H) 06/20/2020 TRIG 210 (H) 01/13/2024 HDLCHOL 39 (L) 06/20/2020 CHOLHDLRAT 6.3 (H) 06/20/2020 -continue lifestyle modifications -she has not demonstrated ability to take statin as prescribed despite extensive social supports Assessment & Plan (01/16/2024 10:43 AM EDT): No statin given transaminitis of unclear etiology and noncompliance with medications. life-style modification discussed. Lab Results Component Value Date CHOLESTEROL 244 (H) 06/20/2020 LDLCHOL 162 (H) 06/20/2020 TRIG 210 (H) 01/13/2024 HDLCHOL 39 (L) 06/20/2020 CHOLHDLRAT 6.3 (H) 06/20/2020 -continue lifestyle modifications Assessment & Plan (05/15/2023 9:50 AM EDT): Lab Results Component Value Date CHOLESTEROL 244 (H) 06/20/2020 LDLCHOL 162 (H) 06/20/2020 HDLCHOL 39 (L) 06/20/2020 CHOLHDLRAT 6.3 (H) 06/20/2020 -continue lifestyle modifications Assessment & Plan (11/20/2022 10:02 AM EDT): No statin given transaminitis of unclear etiology and noncompliance with medications. life-style modification discussed. -Cholesterol Profile 06/2020: TG 263; LDL 162; HDL 39. She was not fasting. Anxiety 09/18/2011 Resolved Problems Problem Noted Date Diagnosed Date Resolved Date Positive measurement finding 09/18/2023 09/18/2023 06/15/2024 Overview (06/15/2024): Assessment & Plan (01/16/2024 10:41 AM EDT): Pt NOS x 2 in 2022 for scheduled TB Clinic appts.-- Closed.TB clinic NOS x 2- case closed Dental abscess 05/15/2023 09/18/2023 Overview (05/15/2023): she is doing great, tolereating abx Assessment & Plan (05/15/2023 10:07 AM EDT): she is doing great, tolereating abx Positive measurement finding 10/17/2022 05/15/2023 Assessment & Plan (05/15/2023 10:03 AM EDT): TB clinic NOS x 2- case closed Treated by [facility] rheumatology completed therapy with isoniazid. From 12/08/21 she picked up every other month. Was to be completed 02/09/23 ??Patient's fill history for isoniazid is as follows all for 30 day supplies: ? ? 12/08/21 ? ? 02/20/22 ? ? 03/28/22 ? ? 04/24/22 ? ? 09/10/22 ? ? 11/01/22 Encounters Date Type Department Care Team Description 09/25/2024 Telephone [facility] [address] [place] [phone] Elidia Shepherd MD May recalls 09/25/2024 Travel 09/16/2024 Telephone [facility] [address] [place] [address] Eliida Shepherd MD from Last 3 Months Social History Tobacco Use Types Packs/Day Years Used Date Smoking Tobacco: Never Passive Smoke Exposure: Never Smokeless Tobacco: Never Tobacco Cessation:Counseling Given: Not Answered Alcohol Answer Date Recorded Frequency of Alcohol Consumption Not on file 06/15/2024 Average Number of Drinks Not on file 024 Frequency of Binge Drinking Not on file 11/2023 Score 0 06/15/2024 Depression Answer Date Recorded Patient Health Questionnaire-9 Score 5 01/16/2024 Patient Health Questionnaire-9 Score 5 01/16/2024 Last PHQ-9: Questionnaire Data Not on file 0 01/16/2024 Housing Stability Answer Date Recorded What is your housing situation today? I have marcin bustos 01/16/[address] you li ve. Do you have problems with any of the following? None of the above 01/16/2024 Food Insecurity Answer Date Recorded Within the past 12 months, y ou worried that your food would run out before you got money to buy more: Never True 01/16/2024 Within the past 12 months,th e food you bought just didn't last and you didn't have enough money to get more: Never True 01/2024 Transportation Answer Date Recorded In the past 12 months, has l ack of transportation kept you from medical appts, meetings, work or from getting things needed for daily living? No 01/16/2024 Utilities Answer Date Recorded In the past 12 months, has t he electric, gas, oil or water company threatened to shut off services in your home? No 01/16/2024 Depression Answer Date Recorded Patient Health Questionnaire-2 Score 2 01/16/2024 Comments Unknown Sex and Gender Information Value Date Recorded Sex Assigned at Female 06/11/2022 10:16 AM EDT Legal Sex Female 10:16 AM EDT Gender Identity Female 06/11/2022 10:16 AM EDT Sexual Orientation Straight 06/11/2022 10 :16 AM EDT Last Filed Vital Signs Vital Sign Reading Time Taken Comments Blood Pressure 112/90 06/15/2024 10:57 AM EST Pulse 48 06/15/2024 10:57 AM EST Temperature 36.7 ??C (98 ??F) 06/15/2024 10:57 AM EST Respiratory Rate 19 06/15/2024 10:57 AM EST Oxygen Saturation 98% 01/16/2024 10:09 AM EDT Inhaled Oxygen Concentration - - Weight 59 kg (130 lb) 06/15/2024 10:57 AM EST Height 149.9 cm (4' 11 ) 06/15/2024 10:57 AM EST Body Mass Index 26.26 06/15/2024 10:57 AM EST Plan of Treatment Upcoming Encounters Date Type Department Care Team (Late st Contact Info) Description 12/28/2024 11:00 AM EDT Office Visit [facility] [address] [place], [place] [phone] Elidia Shepherd MD [address] [place] [address] Health Maintenance Due Date Last Done Comments CT Colonography 1950 Colonoscopy 1950 Colorectal Cancer Screening 1950 FIT DNA/Cologuard 1950 FIT 1950 FOBT 1950 Sigmoidoscopy 1950 Mammogram 05/07/2019 05/07/2017 DTaP/Tdap/Td Vaccines (1 - Tdap) 01/15/2025 Postponed from 07/28 (Patient Refused) Depression Screening 01/15/2025 01/16/2024, 01/16/2024 Pneumococcal Vaccine: 50+ Years (1 of 2 - PCV) 01/15/2025 Postponed from 07/12 (Patient Refused) RSV Patients and Patients Aged 60 years or older (1 - Risk 60-74 years 1-dose series) 01/15/2025 Postponed from 07/28 (Patient Refused) SDOH Screening 01/15/2025 01/16/2024 Zoster Vaccines (1 of 2) 01/15/2025 Pos tponed from 2001 (Patient Refused) Influenza Vaccine (#1) 2025 Postp oned from 04/12/2024 (Patient Refused) Alcohol/Substance Use Screening 06/15/2025 06/15/2024 COVID-19 Vaccine (1 - 2023-2 5 season) 2025 Postponed from 04/12 (Patient Refused) Tobacco Screening 06/15/2025 06/15/2024 Lipid Panel 01/12/2029 01/13/2024, 06/20/2020 Hepatitis C Screening Completed 11/21/2021 HIB Vaccines Aged Out No longer eligi ble based on patient's age to complete this topic HPV Vaccines Aged Out No longer eligi ble based on patient's age to complete this topic Hepatitis A Vaccines Aged Out No long er eligible based on patient's age to complete this topic Hepatitis B Vaccines Aged Out No long er eligible based on patient's age to complete this topic IPV Vaccines Aged Out No longer eligi ble based on patient's age to complete this topic Meningococcal Vaccine Aged Out No gaurang lopez eligible based on patient's age to complete this topic RSV under 20 months Aged Out No longe r eligible based on patient's age to complete this topic Rotavirus Vaccines Aged Out No longer eligible based on patient's age to complete this topic Procedures Procedure Name Priority Date/Time Associated Diagnosis Comments LIPID PANEL, STANDARD Routine 01/13/2024 8:32 AM EDT Dyslipidemia HEPATITIS C ANTIBODY Routine 11/21/2021 MAMMOGRAPHY Routine 05/07/2017 from Last 3 Months or Most Recently Relevant to Health Maintenance Results * (ABNORMAL) Lipid Panel, Standard (01/13/2024 8:32 AM EDT) Triglycerides 210(H) <150 mg/dL [facility] Comment:Desirable Triglyceri de: less than 150 mg/dLBorderline High Triglyceride 150-199 mg/dLHigh Triglyceride: 200-499 mg/dLVery High Triglyceride: greater than or equal to 5OO mg/dL Cholesterol 295(H) <200 mg/dL [facility] Comment:Desirable Cholestero l: less than 200 mg/dLBorderline High Cholesterol: 200-239 mg/dLHigh Cholesterol: greater than 239 mg/dL LDL Cholesterol Calculated 206(H) <100 mg/dL [facility] Comment:Desirable LDL: less than 100 mg/dLNear Optimal/Above Optimal LDL: 110- 129 mg/dLBorderline High LDL: 130-159 mg/dLHigh LDL: 160-189 mg/dLVery High LDL: greater than or equal to 190 mg/dL HDL Cholesterol 47 >40 mg/dL [facility] Comment:Desirable HDL: great er than 40 mg/dL Note: This HDL assay may give artificially low results in patients with liver disease. Blood Venous blood specimen / Unknown 01/13/2024 8:32 AM EDT 01/13/2024 11:55 AM EDT Elidia Shepherd MD LAB BLOOD ORDERABLES Final Result Performing Organization Address City/State/[facility] Co de Phone Number [facility] [address] [place] [address] [phone] * Hepatitis C Antibody (11/21/2021) Hepatitis C Antibody Nonreactive Blood Historical Provider HEALTH MAINTENANCE Final Result * Mammography (05/07/2017) Mammogram BIRADS 1 Anatomical Region Laterality Modality Other Historical Provider HEALTH MAINTENANCE Final Result from Last 3 Months or Most Recently Relevant to Health Maintenance Insurance [facility] Advance Directives Documents on File Type Date Recorded Patient Hospital Clinic Assistant Expl anation Advance Directives and Living Will 06/15/2024 Health Care Proxy 06/15/24 Care Teams Associate Embalmer/Funeral Director Relationship Specialty Start Date End Date [place], MD Elidia [address] [place] [phone] PCP - General Family Medicine 08/12/18
--- OUTSIDE RECORDS SUMMARY | 2024-10-03 17:43 | XMS_ITS ---
Author Name [facility] Organization Unknown Problems Problem Status Onset Date Problem Type Date of Resoluti on Source Cellulitis active 2023-05-11 [facility]
--- OUTSIDE RECORDS SUMMARY | 2024-10-03 17:43 | XMS_ITS | Encounter Summary ---
Author Organization [employer] Address [address] [place] [address] Care Team Providers Care Programmer Analyst Consultant Name Role Phone Elidia Shepherd MD Primary Care Provider [phone]- [phone] Encounter Details Date Type Department Care Team (Late st Contact Info) Description 11/22/2023 Orders Only [facility] [address] [place], [place] [phone] Elidia Shepherd MD [address] [place], [place] [phone] Social History Tobacco Use Types Packs/Day Years Used Date Smoking Tobacco: Never Passive Smoke Exposure: Never Smokeless Tobacco: Never Depression Answer Date Recorded Patient Health Questionnaire-9 Score 0 11/21/2022 Housing Stability Answer Date Recorded What is your housing situation today? I have marcin bustos 05/29/[address] you li ve. Do you have problems with any of the following? None of the above 05/29/2023 Food Insecurity Answer Date Recorded Within the past 12 months, y ou worried that your food would run out before you got money to buy more: Never True 05/29/2023 Within the past 12 months,th e food you bought just didn't last and you didn't have enough money to get more: Never True Transportation Answer Date Recorded In the past 12 months, has l ack of transportation kept you from medical appts, meetings, work or from getting things needed for daily living? No 05/29/2023 Utilities Answer Date Recorded In the past 12 months, has t he electric, gas, oil or water company threatened to shut off services in your home? No 05/29/2023 Depression Answer Date Recorded Patient Health Questionnaire-2 [...] Description 12/28/2024 11:00 AM EDT Office Visit [facility] [address] [place] [address] Elidia Shepherd MD [address] [place] [address] documented as of this encounter Visit Diagnoses Not on filedocumented in this encounter Additional Health Concerns Assessment Noted Time PHQ-9 Depression Total Score: 0 11/22/19 23 9:33 AM EDT documented as of this encounter Care Teams Programmer Analyst Consultant Relationship Specialty Start Date End Date Elidia Shepherd MD [address] [place] [phone] PCP - General Family Medicine 08/12/18 documented as of this encounter
--- OUTSIDE RECORDS SUMMARY | 2024-10-03 17:43 | XMS_ITS | Encounter Summary ---
Author Organization [employer] Address [address] [facility] [address] [place] [address] Care Team Providers Care Sales Solutions Representative Name Role Phone Elidia Shepherd MD Primary Care Provider [phone]- [phone] Encounter Details Date Type Department Care Team (Latest Contact Info) Description 09/25/2024 Travel Social History Tobacco Use Types Packs/Day Years Used Date Smoking Tobacco: Never Passive Smoke Exposure: Never Smokeless Tobacco: Never Alcohol Answer Date Recorded Frequency of Alcohol [...] Description 12/28/2024 11:00 AM EDT Office Visit [facility] [address] [place] [phone] Elidia Shepherd MD [address] [place] [address] documented as of this encounter Visit Diagnoses Not on filedocumented in this encounter Additional Health Concerns Assessment Noted Time PHQ-9 Depression Total Score: 5 01/16/20 24 10:10 AM EDT documented as of this encounter Care Teams Sales Solutions Representative Relationship Specialty Start Date End Date Elidia Shepherd MD [address] [place] [phone] PCP - General Family Medicine 08/12/18 documented as of this encounter
--- OUTSIDE RECORDS SUMMARY | 2024-10-03 17:43 | XMS_ITS | Encounter Summary ---
Author Organization [employer] [facility] Address [address] [facility] [address] [place] [address] Care Team Providers Care Marketing Research Intern Name Role Phone Elidia Shepherd MD Primary Care Provider [phone]- [phone] Encounter Details Date Type Department Care Team (Late st Contact Info) Description 11/23/2022 Orders Only [facility] [address] [place] [address] [phone] Terrie Siddiqi, MARIO Social History Tobacco Use Types Packs/Day Years Used Date Smoking Tobacco: Never Assessed Depression Answer Date Recorded Patient Health Questionnaire-9 Score 0 11/21/2022 Depression Answer Date Recorded Patient Health Questionnaire-2 Score 0 11/21/2022 Comments Unknown Sex and Gender Information Value Date Recorded Sex Assigned at Female 06/11/2022 10:16 AM EDT Legal Sex Female 10:16 AM EDT Gender Identity Female 06/11/2022 10:16 AM EDT Sexual Orientation Straight 06/11/2022 10 :16 AM EDT COVID-19 Exposure Response Date Recorded In the last 10 days, have yo u been in contact with someone who was confirmed or suspected to have Coronavirus/COVID-19? No / Unsure 11/21/2022 9:05 AM EDT documented as of this encounter Plan of Treatment Upcoming Encounters Date Type Department Care Team (Late st Contact Info) Description 12/28/2024 11:00 AM EDT Office Visit [facility] [address] [place] [phone] Elidia Shepherd MD [address] [place] [address] [phone] documented as of this encounter Visit Diagnoses Not on filedocumented in this encounter Additional Health Concerns Assessment Noted Time PHQ-9 Depression Total Score: 0 11/22/19 23 9:33 AM EDT documented as of this encounter Care Teams Marketing Research Intern Relationship Specialty Start Date End Date Elidia Shepherd MD [address] [place] [address] PCP - General Family Medicine 08/12/18 documented as of this encounter
--- OUTSIDE RECORDS SUMMARY | 2024-10-03 17:43 | XMS_ITS | Encounter Summary ---
Author Organization [facility] Address [address] [facility] [address] [place] [address] Care Team Providers Care Appeals Assistant Name Role Phone Elidia Shepherd MD Primary Care Provider +1- [phone] Encounter Details Date Type Department Care Team (Late st Contact Info) Description 03/07/2023 Orders Only [facility] [address] [place] [address] [phone] Elidia Shepherd MD [address] [place] [address] [phone] Social History Tobacco Use Types Packs/Day Years [...] Description 12/28/2024 11:00 AM EDT Office Visit [facility] [address] [place] [address] [phone] Elidia Shepherd MD [address] [place] [address] [phone] documented as of this encounter Visit Diagnoses Not on filedocumented in this encounter Additional Health Concerns Assessment Noted Time PHQ-9 Depression Total Score: 0 11/22/19 23 9:33 AM EDT documented as of this encounter Care Teams Appeals Assistant Relationship Specialty Start Date End Date Elidia Shepherd MD [address] [place] [address] PCP - General Family Medicine 08/12/18 documented as of this encounter
--- OUTSIDE RECORDS SUMMARY | 2024-10-03 17:43 | XMS_ITS | Encounter Summary ---
Author Organization [employer] Address [address] [facility] 7t [place] [address] Care Team Providers Care Final Assembler Name Role Phone Elidia Shepherd MD Primary Care Provider +1- [phone] Reason for Visit * Reason Onset Date Comments May recalls 09/25/2024 Encounter Details Date Type Department Care Team ([facility] st Contact Info) Description 09/25/2024 Telephone [facility] [address] [place] [address] Elidia Shepherd MD [address] [place] [address] December recalls Social History Tobacco Use Types Packs/Day Years [...] AM EDT documented as of this encounter Miscellaneous Notes * Telephone Encounter - Shaina Collins MA - 09/25/2024 3:02 PM EST ..T/C- Lining Ironer and Patient made follow up chronic condition appointment with Elidia Escobedo for November. Appointment reminder sent via mail. documented in this encounter Plan of Treatment Upcoming Encounters Date Type Department Care Team (Late st Contact Info) Description 12/28/2024 11:00 AM EDT Office Visit [facility] [address] [place] [phone] Elidia Shepherd MD [address] [place] [address] documented as of this encounter Visit Diagnoses Not on filedocumented in this encounter Additional Health Concerns Assessment Noted Time PHQ-9 Depression Total Score: 5 01/16/20 24 10:10 AM EDT documented as of this encounter Care Teams Final Assembler Relationship Specialty Start Date End Date Elidia Shepherd MD [address] [place] [id number] PCP - General Family Medicine 08/12/18 documented as of this encounter
--- OUTSIDE RECORDS SUMMARY | 2024-10-03 17:43 | XMS_ITS | Encounter Summary ---
Author Organization [employer] Address [address] [place] [address] Care Team Providers Care Algorithm Developer Name Role Phone Elidia Shepherd MD Primary Care Provider [phone] Encounter Details Date Type Department Care Team ([facility] st Contact Info) Description 09/16/2024 Telephone [facility] [address] [place], [place] [phone] Elidia Shepherd MD [address] [place] [address] Social History Tobacco Use Types Packs/Day Years [...] your housing situation today? I have marcin juli 01/16/[address] you li [...] Description 12/28/2024 11:00 AM EDT Office Visit [facility] [address] [place] [id number] Elidia Shepherd MD [address] [place] [id number] documented as of this encounter Visit Diagnoses Not on filedocumented in this encounter Additional Health Concerns Assessment Noted Time PHQ-9 Depression Total Score: 5 01/16/20 24 10:10 AM EDT documented as of this encounter Care Teams Algorithm Developer Relationship Specialty Start Date End Date Elidia Shepherd MD [address] [place] [id number] PCP - General Family Medicine 08/12/18 documented as of this encounter
[2024-10-03 17:45] LABS: Alanine Aminotransferase 56 U/L (0-31); Albumin Level 4.1 g/dL (3.5-5.0); Alkaline Phosphatase 127 U/L (39-117); Anion Gap 15 (12-20); Aspartate Amino Transferase 40 U/L (5-31); Bilirubin Direct 0.1 mg/dL (0.0-0.5); Bilirubin Total 0.4 mg/dL (0.0-1.0); Blood Urea Nitrogen 22 mg/dL (9-16); Calcium 9.7 mg/dL (8.4-10.2); Carbon Dioxide 22 mmol/L (22-29); Chloride 108 mmol/L (96-108); Creatinine Clr Calc Pharmacy 55.2; Estimated Glomerular Filt Rate > 60; Glucose Random 144 mg/dL (60-115); Lipase 34 U/L (8-78); Magnesium 2.3 mg/dL (1.6-2.6); Potassium 4.1 mmol/L (3.3-5.1); Sodium 141 mmol/L (135-145); Total Protein 7.3 g/dL (6.5-8.0)
[2024-10-03 17:53] LABS: Troponin-I High Sensitivity < 2.7 ng/L (<3.5-17.0)
[2024-10-03 18:20] LABS: Influenza A PCR NEGATIVE (Negative); Influenza B PCR NEGATIVE (Negative); Resp Syncy Virus RNA Qual PCR NEGATIVE (Negative); SARS COV2 PCR INHOUSE NEGATIVE (Negative)
[2024-10-03 18:47] VITALS: BP 126/82; PULSE 88; RESP 20; O2SAT 95
--- NOTE | 2024-10-03 19:25 | ECG_ITS ---
Test Reason : REPEAT EKG Blood Pressure : */* mmHG Vent. Rate : 83 BPM Atrial Rate : 83 BPM P-R Int : 150 ms QRS Dur : 78 ms QT Int : 388 ms P-R-T Axes : 59 4 100 degrees QTcB Int : 455 ms Normal sinus rhythm T wave abnormality, consider anterolateral ischemia vs LVH/strain Abnormal ECG When compared with ECG of 03-Oct-2024 17:11, Premature ventricular complexes are no longer Present Referred By: Gina Randall Electronically Signed By: VICTOR HUGO KRAMER
[2024-10-03 20:28] VITALS: BP 120/67; PULSE 70; RESP 17; TEMP 36.6; O2SAT 93
[2024-10-03 20:32] LABS: D Dimer High Sensitivity < 150 NG/ML
[2024-10-03 20:46] LABS: Troponin-I High Sensitivity 8.8 ng/L (<3.5-17.0)
[2024-10-03 21:11] LABS: Appearance Urine Clear; Color Urine Yellow; Glucose Urine UA Negative (Negative); Leukocyte Esterase Urine Negative (Negative); Nitrite Urine Negative (Negative); PH >= 9.0 (5.0-9.0); Urine Blood Negative (Negative); Urine Ketones Negative (Negative); Urine Protein Negative (Neg-Trace)
[2024-10-03 23:01] VITALS: BP 97/78; PULSE 67; RESP 19; TEMP 36.4; O2SAT 94
--- NOTE | 2024-10-03 23:09 | P.HPHOSP_ITS ---
History of Present Illness Date of Service: 10/03/24 Attending physician on admission: [facility] Chief Complaint: high blood pressure, nausea, vomiting, weakness Patient is a 74-year-old female with a past medical history significant for RA on prednisone, schizophrenia, severe aortic stenosis, anxiety and hypertension, who presented to the ED due to reported high blood pressure (150/100), vomiting, dizziness and lethargy. She reports when her blood pressures is high, she feels nauseous, vomits and is dizzy. She denies any chest pain, headache, shortness of breath or abdominal pain. She only had 1 episode of vomiting and feels better now. There is a significant barrier regarding medical knowledge the patient had a very hard time understanding questions and responses even with whipped topping mixer present and multiple explanations. Review of Systems 2 Constitutional: Constitutional: Denies body ache(s), Denies chills, Denies fever(s) and Denies headache(s) Eyes: Eyes: Denies change in vision and Denies photophobia ENT: Denies headache(s), Denies nasal congestion, Denies nasal discharge and Denies sore throat Cardiovascular: Cardiovascular: Denies chest pain, Denies rapid heart rate, Denies leg edema, Reports lightheadedness and Denies dyspnea Respiratory: Respiratory: Denies chest congestion, Denies cough, Denies dyspnea and Denies wheezing Gastrointestinal: Gastrointestinal: Denies diarrhea, Reports nausea and Reports vomiting Genitourinary: Genitourinary: Denies hematuria, Denies dysuria and Denies urinary urgency Musculoskeletal: Musculoskeletal: Denies myalgias Integumentary/Breasts: Skin/Breast: Denies rash Neurologic: Denies confusion and Denies headache(s) Psychiatric: Psychiatric: Denies confusion Endocrine: Endocrine: Denies flushing Hematologic/Lymphatic: Hematologic/Lymphatic: Denies easy bleeding and Denies easy bruising Allergic/Immunologic: Allergic/Immunologic: Denies wheezing PMFSH Medical History Current chronic use of systemic steroids Chronic mental illness Schizophrenia Response to cell-mediated gamma interferon antigen without active 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 Mother No problems noted. Surgical History No pertinent past surgical history Social History Housing: Apartment Are you a primary pet care worker to a significant other at home: No Do you presently have visiting nurse or other home services: Yes Alcohol intake: former Patient Tobacco Use Status: Former Tobacco user Smoked in Last 30 Days: No e-Cigarette/Vaping Use: Never Used Use of substances other than those prescribed or required for medical reasons: No Advance Directives: No Advance Directives Information Provided: No Do you have a plan to hurt others: No Plan service: No Current occupational status: disabled Narrative: no smoking, etoh or drug use Meds Allergies Allergy/AdvReac Type Severity Reaction Status Date / Time No Known Allergies Allergy Verified 10/03/24 17:08 Home Medications ?Medication ?Instructions ?Recorded ?Confirmed ?Last Taken ?Type cyclobenzaprine 10 mg tablet 10 mg PO BEDTIME 11/21/21 03/07/23 Unknown History losartan 50 mg-hydrochlorothiazide 1 tab PO DAILY 11/21/21 03/07/23 Unknown History 12.5 mg tablet amlodipine 5 mg tablet 5 mg PO DAILY 03/28/22 03/07/23 Unknown History calcium 500 mg (as 1 tab PO BID 04/10/22 03/07/23 Unknown History carbonate)-vitamin D3 5 mcg (200 unit) tablet (Oyster Shell Calcium-Vitamin D3) Physical Exam 2 Vital Signs and Narrative: Vital Signs: Last Vital Signs Temp 97.5 F 10/03/24 23:01 Pulse 67 10/03/24 23:01 Resp 19 10/03/24 23:01 BP 97/78 10/03/24 23:01 Pulse Ox 94 10/03/24 23:01 O2 Del Method Room Air 10/03/24 23:01 BMI result Body Mass Index 21.6 General: AOx3, no acute distress, whipped topping mixer present Resp: CTA bilaterally CVS: RRR, + GI: +BS, NT, no distention Skin: Warm, dry Neuro: Cranial nerves II-XII grossly intact bilaterally. Motor grossly intact bilaterally Extremities: No LE edema Psych: Appropriate affect Const: General: No confusion Orientation/consciousness: No confusion Eyes: Direct Ophthalmoscopy: No photophobia Neuro: General: No confusion Results Labs 10/03/24 17:20 10/03/24 17:20 Labs: Laboratory Results - last 24 hr 10/03/24 10/03/24 10/03/24 17:20 20:02 21:03 MCV 80.8 MCH 27.6 MCHC 34.2 RDW 13.8 Plt Count 213 MPV 10.8 Immature Gran % (Auto) 1.0 H Neut % (Auto) 60.4 Lymph % (Auto) 31.3 [place] % (Auto) 5.4 Eos % (Auto) 1.7 Baso % (Auto) 0.2 Lymph # (Auto) 2.8 [place] # (Auto) 0.5 Eos # (Auto) 0.2 Baso # (Auto) 0.0 Abs Immat Gran (auto) 0.09 H Absolute Neuts (auto) 5.4 Absolute Nucleated RBC 0.000 Nucleated RBC % (auto) 0.0 D-Dimer High Sensitivty < 150 Anion Gap 15 Estim Creat Clear Calc 55.2 Estimated GFR > 60 Random Glucose 144 H Calcium 9.7 Magnesium 2.3 Total Bilirubin 0.4 Direct Bilirubin 0.1 AST 40 H ALT 56 H Alkaline Phosphatase 127 H Total Protein 7.3 Albumin 4.1 Lipase 34 Urine Color Yellow Urine Appearance Clear Urine pH >= 9.0 Ur Specific [place] 1.010 Urine Protein Negative Urine Glucose (UA) Negative Urine Ketones Negative Urine Blood Negative Urine Nitrite Negative Ur Leukocyte Esterase Negative Influenza Type A (PCR) NEGATIVE Influenza Type B (PCR) NEGATIVE RSV RNA Qual (PCR) NEGATIVE SARS-CoV-2 RNA (RT-PCR) NEGATIVE Assessment and Plan (1) Abnormal ECG: Status: Acute Plan Patient is a 74-year-old female with a past medical history significant for RA on prednisone, schizophrenia, severe aortic stenosis, anxiety and hypertension, who presented to the ED due to reported high blood pressure (150/100), vomiting, dizziness and lethargy. EKG was concerning for inverted T waves ?NSTEMI. cardiology recommended observation and echo. abnormal EKG - no CP, SOB or URI sx - electrolytes normal - initial EKG with sinus tach and occasional PVCs, possible left atrial enlargement, ST and T-wave abnormality, consider anterolateral ischemia - repeat EKG 2 hours later with normal sinus rhythm, T-wave abnormality, consider anterolateral ischemia - trop 2.7, 8.8 on repeat - given 500cc IVF in ED and zofran for nausea - echo - cardiology consult - admit for observation HTN - BP currently low normal, monitor - resume home meds when appropriate RA - continue prednisone schizophrenia, anxiety - continue home meds severe - echo full code VTE prophy: lovenox Patient with abnormal EKG, concern for NSTEMI, admit for observation and echocardiogram with cardiology consultation. Quality Stroke Does the patient have a stroke diagnosis?: No VTE Prior VTE?: No VTE Risk Level:: Medical - moderate - high VTE Device Contraindication: Treatment Not Indicated VTE Drug Contraindication: N/A - Med Ordered
[2024-10-04] VITALS (7 sets, daily range): BP systolic 111–128; BP diastolic 61–86; PULSE 72–89; RESP 16–22; TEMP 36.2–37.1; O2SAT 94–98; BMI 20.5
[2024-10-04] MEDS: Enoxaparin Sodium 40 MG/0.4 ML SYRINGE SUBCUT ×2 (01:12→23:55)
[2024-10-04] MEDS: 0.9 % Sodium Chloride Flush 3 ML SYRINGE IVFLUSH ×4 (01:12→20:25)
[2024-10-04 01:33] LABS: Troponin-I High Sensitivity 8.7 ng/L (<3.5-17.0)
[2024-10-04 03:42] LABS: Hematocrit 41.7 % (37.0-47.0); Hemoglobin 14.2 g/dl (12.0-16.0); Mean Corpuscular HGB Conc 34.1 g/dl (31.0-35.0); Mean Corpuscular Hemoglobin 27.4 pg (27.0-33.0); Mean Corpuscular Volume 80.3 fL (80.0-98.0); Mean Platelet Volume 10.8 fL (9.4-12.3); Platelet Count 222 X10*3/uL (160-400); Red Blood Count 5.19 X10*6/uL (4.20-5.50); Red Cell Distribution Width 13.7 % (11.0-16.0); White Blood Count 10.6 X10*3/uL (4.8-10.8)
[2024-10-04 07:07] LABS: Anion Gap 10 (12-20); Blood Urea Nitrogen 14 mg/dL (9-16); Calcium 9.6 mg/dL (8.4-10.2); Carbon Dioxide 24 mmol/L (22-29); Chloride 112 mmol/L (96-108); Estimated Glomerular Filt Rate > 60; Glucose Random 87 mg/dL (60-115); Potassium 4.1 mmol/L (3.3-5.1); Sodium 142 mmol/L (135-145)
--- NOTE | 2024-10-04 07:55 | P.PNIM_ITS ---
Subjective Subjective Date of Service: 10/04/24 Interval History: History obtained via rim roller setter Patient feels better denies headache, no dizziness, no chest pain, no shortness of breath All symptoms of nausea, vomiting, weakness resolved. Review of Systems All other system reviewed and are negative Physical Exam 2 Vital Signs: Vital Signs: Last Vital Signs Temp 98.2 F 10/04/24 03:47 Pulse 78 10/04/24 03:47 Resp 19 10/04/24 03:47 BP 117/76 10/04/24 03:47 Pulse Ox 95 10/04/24 03:47 O2 Del Method Room Air 10/04/24 03:47 BMI result Body Mass Index 21.6 Const: Other: General resting comfortably in no acute distress. Anicteric sclera Neck no JVD. CVS regular rate rhythm, systolic murmur Respiratory lungs clear to auscultation, no respiratory distress. Gastrointestinal abdomen soft, non tender, bowel sounds audible Extremities no edema. Neuro non focal Skin no rash Objective Data Active Medications Acetaminophen (Acetaminophen 325 Mg Tablet) 975 mg PO Q6H PRN PRN Reason: Pain, Mild 1-3,fever,headache Calcium Carbonate (Calcium Carbonate 750 Mg Tab.Chew) 750 mg PO Q4H PRN PRN Reason: Heartburn Enoxaparin Sodium (Enoxaparin Sodium 40 Mg/0.4 Ml Syringe) 40 mg SUBCUT Q24H [facility] Last Admin: 10/04/24 01:12 Dose: 40 mg Documented By: CHRISTINE Magnesium Hydroxide (Milk Of Magnesia 30 Ml Oral.Susp) 30 ml PO DAILY PRN PRN Reason: Constipation Melatonin (Melatonin 3 Mg Tablet) 6 mg PO BEDTIME PRN PRN Reason: Insomnia Ondansetron HCl (Ondansetron Hcl 4 Mg/2 Ml Vial) 4 mg IVPUSH Q8H PRN PRN Reason: Nausea and Vomiting Sodium Chloride (0.9 % Sodium Chloride Flush 3 Ml Syringe) 3 ml IVFLUSH QSHIFT [facility] Last Admin: 10/04/24 01:12 Dose: 3 ml Documented By: CHRISTINE Labs 10/04/24 00:49 10/04/24 06:43 Labs: Laboratory Results - last 24 hr 10/03/24 10/03/24 10/03/24 17:20 20:02 21:03 MCV 80.8 MCH 27.6 MCHC 34.2 RDW 13.8 Plt Count 213 MPV 10.8 Immature Gran % (Auto) 1.0 H Neut % (Auto) 60.4 Lymph % (Auto) 31.3 [place] % (Auto) 5.4 Eos % (Auto) 1.7 Baso % (Auto) 0.2 Lymph # (Auto) 2.8 [place] # (Auto) 0.5 Eos # (Auto) 0.2 Baso # (Auto) 0.0 Abs Immat Gran (auto) 0.09 H Absolute Neuts (auto) 5.4 Absolute Nucleated RBC 0.000 Nucleated RBC % (auto) 0.0 Hold Purple Top D-Dimer High Sensitivty < 150 Anion Gap 15 Estim Creat Clear Calc 55.2 Estimated GFR > 60 Random Glucose 144 H Calcium 9.7 Magnesium 2.3 Total Bilirubin 0.4 Direct Bilirubin 0.1 AST 40 H ALT 56 H Alkaline Phosphatase 127 H Total Protein 7.3 Albumin 4.1 Lipase 34 Urine Color Yellow Urine Appearance Clear Urine pH >= 9.0 Ur Specific [place] 1.010 Urine Protein Negative Urine Glucose (UA) Negative Urine Ketones Negative Urine Blood Negative Urine Nitrite Negative Ur Leukocyte Esterase Negative Influenza Type A (PCR) NEGATIVE Influenza Type B (PCR) NEGATIVE RSV RNA Qual (PCR) NEGATIVE SARS-CoV-2 RNA (RT-PCR) NEGATIVE 10/04/24 10/04/24 00:49 06:43 MCV 80.3 MCH 27.4 MCHC 34.1 RDW 13.7 Plt Count 222 MPV 10.8 Immature Gran % (Auto) Neut % (Auto) Lymph % (Auto) [place] % (Auto) Eos % (Auto) Baso % (Auto) Lymph # (Auto) [place] # (Auto) Eos # (Auto) Baso # (Auto) Abs Immat Gran (auto) Absolute Neuts (auto) Absolute Nucleated RBC 0.000 Nucleated RBC % (auto) 0.0 Hold Purple Top SEE NOTE SEE NOTE D-Dimer High Sensitivty Anion Gap 10 L Estim Creat Clear Calc 67.0 Estimated GFR > 60 Random Glucose 87 Calcium 9.6 Magnesium Total Bilirubin Direct Bilirubin AST ALT Alkaline Phosphatase Total Protein Albumin Lipase Urine Color Urine Appearance Urine pH Ur Specific [place] Urine Protein Urine Glucose (UA) Urine Ketones Urine Blood Urine Nitrite Ur Leukocyte Esterase Influenza Type A (PCR) Influenza Type B (PCR) RSV RNA Qual (PCR) SARS-CoV-2 RNA (RT-PCR) Assessment and Plan (1) Abnormal ECG: Status: Acute (2) Current chronic use of systemic steroids: Status: Acute Plan 74-year-old female with a past medical history significant for RA on prednisone, schizophrenia, severe aortic stenosis, anxiety and hypertension, who presented to the ED due to reported high blood pressure (150/100), vomiting, dizziness and lethargy. EKG was concerning for inverted T waves ?NSTEMI. cardiology recommended observation and echo. abnormal EKG, asymptomatic no CP, SOB or URI sx - electrolytes normal - initial EKG with sinus tach and occasional PVCs, possible left atrial enlargement, ST and T-wave abnormality, consider anterolateral ischemia - repeat EKG 2 hours later shows normal sinus rhythm otherwise unchanged - trop 2.7, 8.8 on repeat -hemoglobin A1c 5.6/LDL 206 in 02/02 - seen by cardiology has history of critical aortic stenosis , they feel abnormal EKG likely related to progression of aortic stenosis/LV strain pattern can not rule out concurrent coronary disease -check echocardiogram -patient showing no understanding of underlying disease therefore cardio recommend psych eval for capacity, question underlying schizophrenia untreated limiting understanding -patient lives alone at home with IMMIGRATION OFFICER services Saturday through Saturday 930-2 p.m. -Question patient cousin want is healthcare proxy welfare case worker requested for copy of HCP HTN - low normal BP, , resume amlodipine 5 mg on losartan 50 mg and follow BP RA - continue prednisone 5 mg twice daily schizophrenia, anxiety - not on home medications severe - echo full code VTE prophy: lovenox Patient with abnormal EKG, likely due to progressive aortic stenosis with LV straight awaiting echocardiogram and capacity evaluation Quality Stroke Does the patient have a stroke diagnosis?: No VTE Prior VTE?: No VTE Risk Level:: Medical - moderate - high VTE Device Contraindication: Treatment Not Indicated VTE Drug Contraindication: N/A - Med Ordered
--- NOTE | 2024-10-04 10:20 | PHA.MEDREC ---
Addendum entered by Gabriela Turner [facility] 10/04/24 10:26: REVIEWED Original Note: Pharmacy Consult ? Medication Reconciliation Pharmacy has completed the medication reconciliation. Spoke to pt to confirm meds. Utilized transportation project manager services. Per pt, still taking prednisone 5 mg BID (last claim was in 04/07). Stated it was for arthritis, and that they were going to meet with their doctor to discuss whether they should still be taking it. Left on med rec because patient was insistent on still taking it prior to presentation.
--- NOTE | 2024-10-04 10:23 | P.CONCA_ITS ---
History of Present Illness History of Present Illness Date of Service: 10/04/24 Chief complaint: adnormal EKG Narrative: This is a cardiology consultation regarding abnormal EKG. Patient in the hospital because of nausea/vomiting/weakness. Blood pressure was apparently high. Then found to be having an abnormal EKG and that led to the consultation. To recall, she used to be followed up in the clinic but not recently. She has not been seen since 2022. She has severe aortic stenosis. However, patient has no insight into the issues and that could be from schizophrenia. We have previously discussed with the patient detail but with minimal understanding. We had discussed about cardiac catheterization/TAVR but due to mental illness and lack of comprehension, was not pursued. And she has not been followed up since that time. Today, I asked her about this and she states ' God is taking care of her'. When asked her about her living situation, she states that [facility]. Denies any active cardiac symptoms. Review of Systems 2 Review of Systems: Yes all other systems are reviewed and are negative Constitutional: Constitutional: Reports as per HPI and Reports no additional constitutional complaints Eyes: Eyes: Reports as per HPI and Denies no additional eye complaints ENT: Denies system reviewed and no additional complaints, except as documented and Reports as per HPI Cardiovascular: Cardiovascular: Reports as per HPI, Reports no additional cardiovascular complaints, Denies acrocyanosis, Denies cool extremities, Denies chest pain, Denies leg edema, Denies lightheadedness, Denies palpitations and Denies dyspnea Respiratory: Respiratory: Reports as per HPI, Denies no additional respiratory complaints and Denies dyspnea Gastrointestinal: Gastrointestinal: Reports as per HPI and Denies no additional gastrointestinal complaints Genitourinary: Genitourinary: Reports as per HPI Musculoskeletal: Musculoskeletal: Reports no additional musculoskeletal complaints and Reports as per HPI Integumentary/Breasts: Skin/Breast: Reports system reviewed and no additional complaints, except as docu Neurologic: Reports system reviewed and no additional complaints, except as documented and Reports as per HPI Psychiatric: Psychiatric: Reports no additional psychiatric complaints and Reports as per HPI Endocrine: Endocrine: Reports no additional endocrine complaints, Reports as per HPI and Denies palpitations Hematologic/Lymphatic: Hematologic/Lymphatic: Reports no additional hematologic/lymphatic complaints and Reports as per HPI Allergic/Immunologic: Allergic/Immunologic: Reports no additional allergic/immunologic complaints and Reports as per HPI [facility] Past Medical History Medical History Current chronic use of systemic steroids Chronic mental illness Schizophrenia Response to cell-mediated gamma interferon antigen without active TB 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 Mother No problems noted. Surgical History Surgical History No pertinent past surgical history Social History Social History Housing: Apartment Are you a primary career services director to a significant other at home: No Do you presently have visiting nurse or other home services: Yes Alcohol intake: former Patient Tobacco Use Status: Former Tobacco user Smoked in Last 30 Days: No e-Cigarette/Vaping Use: Never Used Use of substances other than those prescribed or required for medical reasons: No Advance Directives: No Advance Directives Information Provided: No Do you have a plan to hurt others: No Plan Nutrition Risks: No Nutritional Risk service: No Current occupational status: disabled Meds Allergies Allergy/AdvReac Type Severity Reaction Status Date / Time No Known Allergies Allergy Verified 10/03/24 17:08 Active Medications: Current Medications Acetaminophen (Acetaminophen 325 Mg Tablet) 975 mg PO Q6H PRN PRN Reason: Pain, Mild 1-3,fever,headache Calcium Carbonate (Calcium Carbonate 750 Mg Tab.Chew) 750 mg PO Q4H PRN PRN Reason: Heartburn Enoxaparin Sodium (Enoxaparin Sodium 40 Mg/0.4 Ml Syringe) 40 mg SUBCUT Q24H [facility] Last Admin: 10/04/24 01:12 Dose: 40 mg Magnesium Hydroxide (Milk Of Magnesia 30 Ml Oral.Susp) 30 ml PO DAILY PRN PRN Reason: Constipation Melatonin (Melatonin 3 Mg Tablet) 6 mg PO BEDTIME PRN PRN Reason: Insomnia Ondansetron HCl (Ondansetron Hcl 4 Mg/2 Ml Vial) 4 mg IVPUSH Q8H PRN PRN Reason: Nausea and Vomiting Sodium Chloride (0.9 % Sodium Chloride Flush 3 Ml Syringe) 3 ml IVFLUSH QSHIFT [facility] Last Admin: 10/04/24 08:11 Dose: 3 ml Home Medications ?Medication ?Instructions ?Recorded ?Confirmed ?Last Taken ?Type amlodipine 5 mg tablet 5 mg PO DAILY 03/28/22 10/04/24 10/03/24 History calcium 500 mg (as 1 tab PO BID 04/10/22 10/04/24 10/03/24 History carbonate)-vitamin D3 5 mcg (200 unit) tablet (Oyster Shell Calcium-Vitamin D3) losartan 50 mg tablet 50 mg PO DAILY 10/04/24 10/04/24 10/03/24 History magnesium oxide 400 mg (241.3 mg 400 mg PO DAILY 10/04/24 10/04/24 10/03/24 History magnesium) tablet omega-3s 300 [id number] 1 cap PO DAILY 10/04/24 10/04/24 10/03/24 History [id number] oil 1,000 mg capsule (Sugarcreek-3 Fish Oil) prednisone 5 mg tablet 5 mg PO BID 10/04/24 10/04/24 10/03/24 History Physical Exam 2 Vital Signs: Vital Signs: Last Vital Signs Temp 98.2 F 10/04/24 08:00 Pulse 89 10/04/24 08:00 Resp 18 10/04/24 08:00 BP 127/77 10/04/24 08:00 Pulse Ox 95 10/04/24 08:00 O2 Del Method Room Air 10/04/24 08:00 BMI result Body Mass Index 21.6 Const: General: comfortable and no acute distress O rientation/consciousness: No patient oriented x3 HEENT: Other: Unremarkable Head: Yes normal to inspection Neck: Neck: Yes normal visual inspection Chest: Chest palpation & inspection: normal inspection of the chest Resp: Auscultation: clear to auscultation bilaterally Cardio: Palpation: normal PMI Heart sounds: S1 normal heart sound present, S2 abnormal (absent), no gallops, Murmur heart sound present systolic III/ and at the right sternal border and no rubs GI: Palpation (GI): Soft to palpation Back/Spine/Pelvis: Other: unremarkable Skin: General skin exam: no rashes or lesions noted Neuro: General: No patient oriented x3 Extrem: General: Yes normal to inspection Psych: Mental Status: mental status grossly normal Objective Labs and Meds 10/04/24 00:49 10/04/24 06:43 Lab results: Laboratory Results - last 24 hr 10/03/24 10/03/24 10/03/24 17:20 20:02 21:03 WBC 8.9 RBC 5.47 Hgb 15.1 Hct 44.2 MCV 80.8 MCH 27.6 MCHC 34.2 RDW 13.8 Plt Count 213 MPV 10.8 Immature Gran % (Auto) 1.0 H Neut % (Auto) 60.4 Lymph % (Auto) 31.3 [place]pie % (Auto) 5.4 Eos % (Auto) 1.7 Baso % (Auto) 0.2 Lymph # (Auto) 2.8 [place] # (Auto) 0.5 Eos # (Auto) 0.2 Baso # (Auto) 0.0 Abs Immat Gran (auto) 0.09 H Absolute Neuts (auto) 5.4 Absolute Nucleated RBC 0.000 Nucleated RBC % (auto) 0.0 Hold Purple Top D-Dimer High Sensitivty < 150 Sodium 141 Potassium 4.1 Chloride 108 Carbon Dioxide 22 Anion Gap 15 BUN 22 H Creatinine 0.85 Estim Creat Clear Calc 55.2 Estimated GFR > 60 Random Glucose 144 H Calcium 9.7 Magnesium 2.3 Total Bilirubin 0.4 Direct Bilirubin 0.1 AST 40 H ALT 56 H Alkaline Phosphatase 127 H Troponin I High Sens < 2.7 8.8 D Total Protein 7.3 Albumin 4.1 Lipase 34 Urine Color Yellow Urine Appearance Clear Urine pH >= 9.0 Ur Specific [place] 1.010 Urine Protein Negative Urine Glucose (UA) Negative Urine Ketones Negative Urine Blood Negative Urine Nitrite Negative Ur Leukocyte Esterase Negative Influenza Type A (PCR) NEGATIVE Influenza Type B (PCR) NEGATIVE RSV RNA Qual (PCR) NEGATIVE SARS-CoV-2 RNA (RT-PCR) NEGATIVE 10/04/24 10/04/24 00:49 06:43 WBC 10.6 RBC 5.19 Hgb 14.2 Hct 41.7 MCV 80.3 MCH 27.4 MCHC 34.1 RDW 13.7 Plt Count 222 MPV 10.8 Immature Gran % (Auto) Neut % (Auto) Lymph % (Auto) [place] % (Auto) Eos % (Auto) Baso % (Auto) Lymph # (Auto) [place] # (Auto) Eos # (Auto) Baso # (Auto) Abs Immat Gran (auto) Absolute Neuts (auto) Absolute Nucleated RBC 0.000 Nucleated RBC % (auto) 0.0 Hold Purple Top SEE NOTE SEE NOTE D-Dimer High Sensitivty Sodium 142 Potassium 4.1 Chloride 112 H Carbon Dioxide 24 Anion Gap 10 L BUN 14 Creatinine 0.70 Estim Creat Clear Calc 67.0 Estimated GFR > 60 Random Glucose 87 Calcium 9.6 Magnesium Total Bilirubin Direct Bilirubin AST ALT Alkaline Phosphatase Troponin I High Sens 8.7 Total Protein Albumin Lipase Urine Color Urine Appearance Urine pH Ur Specific [place] Urine Protein Urine Glucose (UA) Urine Ketones Urine Blood Urine Nitrite Ur Leukocyte Esterase Influenza Type A (PCR) Influenza Type B (PCR) RSV RNA Qual (PCR) SARS-CoV-2 RNA (RT-PCR) ECG Interpretation: EKG with underlying sinus rhythm and T inversions in the anterior leads. Repeat EKGs similar. Changes noted compared to prior EKG from 2022. Assessment and Plan (1) Abnormal ECG: Status: Acute (2) Non-rheumatic aortic stenosis: Status: Acute Plan High sensitivity troponins are within range. Per last echocardiogram in 2022, LVEF is 60-65%. Severe aortic stenosis with a mean gradient of 63 mm Hg and valve area of 0.4 cm2. Not followed up since. Abnormal EKG could be related to progression of aortic stenosis/LV strain pattern. Concurrent coronary disease is possible. Unfortunately, no meaningful conversation is possible and she constantly relates to God taking care of her. It does not appear that she is in a position to understand cardiac interventions. Will need to discuss with the next of kin, if any available. Procedures Date of Service Date of Service: 10/04/24
--- NOTE | 2024-10-04 10:45 | MHC.CM.PN ---
CM MET WITH PT WITH THE ASSISTANCE OF A HEALTH AND WELLNESS MANAGER PT REPORTS SHE LIVES ALONE AND HAS A SUPERVISOR SCREEN PRINTING FROM [id number] HOURS M-F SHE HAS A SHOWER CHAIR AND GRAB BARS FOR DME COPY OF HCP REQUESTED, SHE STATES IT IS HER COUSIN MAXWELL, HE IS ALSO HER PRIMARY CONTACT PCP: LIOR BONILLA IMM DELIVERED PTS PREFERRED DCP: HOME RESUME SUPERVISOR SCREEN PRINTING PT WILL NEED SHUTTLE VS LYFT TRANSPORT
[2024-10-04] MEDS: Acetaminophen 325 MG TABLET 975 MG PO ×2 (11:26→17:20)
[2024-10-04] MEDS: predniSONE 5 MG TABLET PO (20:26)
--- NOTE | 2024-10-04 22:49 | PM.PSYCN ---
History of Present Illness Date of Service: 10/04/24 Chief Complaint: adnormal EKG Requesting physician: Jeremias Henderson Sources of Information: patient interviewed and chart reviewed HPI Narrative: Patient is 74-year-old female with a past medical history significant for RA on prednisone, schizophrenia, severe aortic stenosis, anxiety and hypertension, who presented to the ED due to reported high blood pressure (150/100), vomiting, dizziness and lethargy. EKG was concerning for inverted T waves ?NSTEMI. cardiology recommended observation and echo. Patient found to have severe aortic stenosis and in need of TAVR. Psychiatry consulted to assess capacity regarding procedure. Patient seen with farm management supervisor. Patient lives alone in her own apartment in [place]. She is pleasant and polite on approach. She is oriented to herself, location but she can not remember her birthday or the year saying sometimes she can remember sometimes she can not (though she does know her address). Patient is also oriented to current situation and that she is in [facility] because she herself called the ambulance because of nausea and vomiting. She also understands that something is wrong with her blood vessels. Sales And Customer Relations Rep explained aortic stenosis, that it is at a critical level and the emergent need for a procedure to replace the valve. Patient understood this need however said she is not overall worried about dying. She talked about her regine in [place] and that if it is her time to , that is fine. She understood the sense of urgency to make a decision and said that she will talk to her adviser at the outpatient clinic where she goes and with that person's advice, she would consent to the procedure... She says think pray about this decision but regarding the urgency, she reiterated that her regine is very important to her, life is in God's hands and that if it is her time to , she is okay with that. But again, will consider whether not to get the procedure. Regarding staying in the hospital for further testing, she is fine with that. No psychotic symptoms expressed. Past Psychiatric History: Chart reports history of schizophrenia Medical Evaluation Reviewed: Yes [facility] Medical History (Updated 10/05/24 @ 09:22 by Devonte Arias MD) Cognitive impairment Current chronic use of systemic steroids Chronic mental illness Schizophrenia Response to cell-mediated gamma interferon antigen without active TB intermediate manager use of drug Seropositive rheumatoid arthritis Anxiety Hypertension Surgical History No pertinent past surgical history Family History: Unknown Social History: Lives alone in apartment in [place] Has a cousin in [place] as family but no other support Substance History: None Trauma History: Defer Diagnostics Vital Signs (24Hr): Vital Signs - 24 hr 10/03/24 23:01 10/04/24 00:03 10/04/24 03:47 Temperature 97.5 F 98.2 F 98.2 F Pulse Rate 67 75 78 Respiratory Rate 19 16 19 Blood Pressure 97/78 123/74 117/76 Pulse Oximetry 94 96 95 Oxygen Delivery Method Room Air Room Air Room Air 10/04/24 08:00 10/04/24 12:29 10/04/24 15:43 Temperature 98.2 F 98.8 F 98.0 F Pulse Rate 89 86 86 Respiratory Rate 18 22 H 19 Blood Pressure 127/77 111/61 126/86 Pulse Oximetry 95 94 98 Oxygen Delivery Method Room Air Room Air Room Air 10/04/24 19:26 10/04/24 22:17 Temperature 98 F 97.2 F Pulse Rate 82 72 Respiratory Rate 18 18 Blood Pressure 122/73 128/70 Pulse Oximetry 97 97 Oxygen Delivery Method Room Air Room Air BMI result Body Mass Index 20.5 Labs 10/05/24 06:15 10/05/24 06:15 Labs: Laboratory Results - last 48 hr 10/03/24 10/03/24 10/03/24 17:20 20:02 21:03 WBC 8.9 RBC 5.47 Hgb 15.1 Hct 44.2 MCV 80.8 MCH 27.6 MCHC 34.2 RDW 13.8 Plt Count 213 MPV 10.8 Immature Gran % (Auto) 1.0 H Neut % (Auto) 60.4 Lymph % (Auto) 31.3 [place] % (Auto) 5.4 Eos % (Auto) 1.7 Baso % (Auto) 0.2 Lymph # (Auto) 2.8 [place] # (Auto) 0.5 Eos # (Auto) 0.2 Baso # (Auto) 0.0 Abs Immat Gran (auto) 0.09 H Absolute Neuts (auto) 5.4 Absolute Nucleated RBC 0.000 Nucleated RBC % (auto) 0.0 Hold Purple Top D-Dimer High Sensitivty < 150 Sodium 141 Potassium 4.1 Chloride 108 Carbon Dioxide 22 Anion Gap 15 BUN 22 H Creatinine 0.85 Estim Creat Clear Calc 55.2 Estimated GFR > 60 Random Glucose 144 H Calcium 9.7 Magnesium 2.3 Total Bilirubin 0.4 Direct Bilirubin 0.1 AST 40 H ALT 56 H Alkaline Phosphatase 127 H Troponin I High Sens < 2.7 8.8 D Total Protein 7.3 Albumin 4.1 Lipase 34 Urine Color Yellow Urine Appearance Clear Urine pH >= 9.0 Ur Specific [place] 1.010 Urine Protein Negative Urine Glucose (UA) Negative Urine Ketones Negative Urine Blood Negative Urine Nitrite Negative Ur Leukocyte Esterase Negative Influenza Type A (PCR) NEGATIVE Influenza Type B (PCR) NEGATIVE RSV RNA Qual (PCR) NEGATIVE SARS-CoV-2 RNA (RT-PCR) NEGATIVE 10/04/24 10/04/24 00:49 06:43 WBC 10.6 RBC 5.19 Hgb 14.2 Hct 41.7 MCV 80.3 MCH 27.4 MCHC 34.1 RDW 13.7 Plt Count 222 MPV 10.8 Immature Gran % (Auto) Neut % (Auto) Lymph % (Auto) [place] % (Auto) Eos % (Auto) Baso % (Auto) Lymph # (Auto) [place] # (Auto) Eos # (Auto) Baso # (Auto) Abs Immat Gran (auto) Absolute Neuts (auto) Absolute Nucleated RBC 0.000 Nucleated RBC % (auto) 0.0 Hold Purple Top SEE NOTE SEE NOTE D-Dimer High Sensitivty Sodium 142 Potassium 4.1 Chloride 112 H Carbon Dioxide 24 Anion Gap 10 L BUN 14 Creatinine 0.70 Estim Creat Clear Calc 67.0 Estimated GFR > 60 Random Glucose 87 Calcium 9.6 Magnesium Total Bilirubin Direct Bilirubin AST ALT Alkaline Phosphatase Troponin I High Sens 8.7 Total Protein Albumin Lipase Urine Color Urine Appearance Urine pH Ur Specific [place] Urine Protein Urine Glucose (UA) Urine Ketones Urine Blood Urine Nitrite Ur Leukocyte Esterase Influenza Type A (PCR) Influenza Type B (PCR) RSV RNA Qual (PCR) SARS-CoV-2 RNA (RT-PCR) Mental Status Exam Mental Status Exam Narrative: Pt is alert and oriented; behavior is cooperative, friendly and calm; patient is not in distress; dressed in casual attire with unkempt hair but adequate hygiene; mood is described as good and affect congruent; eye contact appropriate; Speech is normal rate, volume and prosody and not pressured; no psychomotor agitation/retardation present; thought process is organized, linear and goal directed; however, very forgetful. Thought content is on medical illness, tx; otherwise pertinent to relevant topics and without any delusional content, paranoid ideations or grandiosity; no expressions of SI/HI. There is no evidence of perceptual disturbance. Patients insight and judgment appear adequate and intact. Medications Medications Current Medications Acetaminophen (Acetaminophen 325 Mg Tablet) 975 mg PO Q6H PRN PRN Reason: Pain, Mild 1-3,fever,headache Last Admin: 10/04/24 17:20 Dose: 975 mg Amlodipine Besylate (Amlodipine Besylate 5 Mg Tablet) 5 mg PO DAILY [facility]; Protocol Calcium Carbonate (Calcium Carbonate 750 Mg Tab.Chew) 750 mg PO Q4H PRN PRN Reason: Heartburn Enoxaparin Sodium (Enoxaparin Sodium 40 Mg/0.4 Ml Syringe) 40 mg SUBCUT Q24H [facility] Last Admin: 10/04/24 01:12 Dose: 40 mg Famotidine (Famotidine 20 Mg Tablet) 20 mg PO DAILY [facility] Losartan Potassium (Losartan Potassium 50 Mg Tablet) 50 mg PO DAILY [facility]; Protocol Magnesium Hydroxide (Milk Of Magnesia 30 Ml Oral.Susp) 30 ml PO DAILY PRN PRN Reason: Constipation Magnesium Oxide (Magnesium Oxide 400 Mg Tablet) 400 mg PO DAILY [facility] Melatonin (Melatonin 3 Mg Tablet) 6 mg PO BEDTIME PRN PRN Reason: Insomnia Ondansetron HCl (Ondansetron Hcl 4 Mg/2 Ml Vial) 4 mg IVPUSH Q8H PRN PRN Reason: Nausea and Vomiting Prednisone (Prednisone 5 Mg Tablet) 5 mg PO BID [facility] Last Admin: 10/04/24 20:26 Dose: 5 mg Sodium Chloride (0.9 % Sodium Chloride Flush 3 Ml Syringe) 3 ml IVFLUSH QSHIFT [facility] Last Admin: 10/04/24 20:25 Dose: 3 ml Allergies Allergies Allergy/AdvReac Type Severity Reaction Status Date / Time No Known Allergies Allergy Verified 10/03/24 17:08 Assessment & Plan Assessment & Plan (1) Aortic stenosis, severe: Status: Acute Code(s): I35.0 - Nonrheumatic aortic (valve) stenosis (2) Schizophrenia: Status: Acute Code(s): F20.9 - Schizophrenia, unspecified (3) Cognitive impairment: Status: Acute Code(s): R41.89 - Other symptoms and signs involving cognitive functions and awareness Plan Patient is 74-year-old female with a past medical history significant for RA on prednisone, schizophrenia, severe aortic stenosis, anxiety and hypertension, who presented to the ED due to reported high blood pressure (150/100), vomiting, dizziness and lethargy. EKG was concerning for inverted T waves ?NSTEMI. cardiology recommended observation and echo. Patient found to have severe aortic stenosis and in need of TAVR. Psychiatry consulted to assess capacity regarding procedure. Patient seen with farm management supervisor. Patient lives alone in her own apartment in [place]. She is pleasant and polite on approach. She is oriented to herself, location but she can not remember her birthday or the year saying sometimes she can remember sometimes she can not (though she does know her address). Patient is also oriented to current situation and that she is in [facility] because she herself called the ambulance because of nausea and vomiting. She also understands that something is wrong with her blood vessels. Sales And Customer Relations Rep explained aortic stenosis, that it is at a critical level and the emergent need for a procedure to replace the valve. Patient understood this need however said she is not overall worried about dying. She talked about her regine in God and that if it is her time to , that is fine. She understood the sense of urgency to make a decision and said that she will talk to her adviser at the outpatient clinic where she goes and with that person's advice, she would consent to the procedure... She says think pray about this decision but regarding the urgency, she reiterated that her regine is very important to her, life is in God's hands and that if it is her time to , she is okay with that. But again, will consider whether not to get the procedure. Regarding staying in the hospital for further testing, she is fine with that. No psychotic symptoms expressed. She is not on antipsychotic medication and apparently has functioned on her own in the community without such medications. Impression: At this time magnetic tape typewriter operator concludes the patient HAS capacity to make current medical decision regarding cardiac procedure. Patient is is organized in speech and behavior and her thought process is logical and linear. She is expressing a consistent opinion about this procedure, that she is open to it but wants to get further advice. She has an adequate, factual understanding of her illness including the risks which include possible . She appreciates that the risk of delaying this specific procedure, including that it could result in her even within days; however she remains consistent in her approach to making her decision, wanting to pray about it and get further advice. If patient does have a psychotic illness, currently there is no evidence that it is interfering in her ability to make this decision. For these reasons magnetic tape typewriter operator deems that patient currently has capacity. That said, magnetic tape typewriter operator strongly recommends case management getting involved. Patient is certainly very forgetful, has cognitive impairment would very likely benefit from assessment of her community support. Total time managing care of this patient today ____ minutes. Patient educated on: diagnosis, medication risk/benefits and medical condition Informed Consent: understands
[2024-10-05 03:44] VITALS: BP 121/74; PULSE 70; RESP 18; TEMP 36.7; O2SAT 95
[2024-10-05 06:49] LABS: Hematocrit 45.1 % (37.0-47.0); Hemoglobin 15.5 g/dl (12.0-16.0); Mean Corpuscular HGB Conc 34.4 g/dl (31.0-35.0); Mean Corpuscular Hemoglobin 27.9 pg (27.0-33.0); Mean Corpuscular Volume 81.3 fL (80.0-98.0); Mean Platelet Volume 10.6 fL (9.4-12.3); Platelet Count 239 X10*3/uL (160-400); Red Blood Count 5.55 X10*6/uL (4.20-5.50); White Blood Count 9.4 X10*3/uL (4.8-10.8)
--- NOTE | 2024-10-05 07:00 | CA_ITS ---
Transthoracic Echocardiogram Patient (Last, First, Middle): Lotus Schwartz, Gender: Female Date of : 1950 Age: 74 Procedure Date: 10/05/2024 Procedure Type: Transthoracic Echocardiogram Location: [facility] Height: 152.4 cm Weight: 58.06 kg BSA: 1.54 m2 Heart Rate: bpm BP: 116 / 60 mmHg Buildings [employer] Gr[employer] Director: Referring MD: Cecy Cuevas PA-C Symptoms: Severe Aortic Stenosis, abnormal EKG Study Quality: Adequate ECG Rhythm: Sinus Conclusions: - The left ventricular systolic function is normal. The calculated ejection fraction is 69% by biplane method. - There is severe aortic valve stenosis. Findings Left Ventricle Normal left ventricular cavity size. There is mildly increased left ventricular wall thickness. The left ventricular systolic function is normal. The calculated ejection fraction is 69% by biplane method. There is no evidence of regional wall motion abnormalities. Evidence suggests grade I (mild) diastolic dysfunction. Right Ventricle Normal right ventricular cavity size. There is low normal right ventricular systolic function. Atria Both atria are normal in size. Aortic Valve There is severe calcification of the aortic valve. There is severe aortic valve stenosis. The peak aortic velocity is 5.54 m/s with a calculated peak gradient of 123 mmHg. The mean gradient is 74 mmHg. The aortic valve area is 0.47 cm2. There is no aortic valve regurgitation. Mitral Valve The mitral valve appears normal. There is mild mitral annular calcification. There is no mitral valve regurgitation. There is no mitral valve stenosis. Pulmonic Valve The pulmonic valve is likely normal. Tricuspid Valve There is trace tricuspid valve regurgitation. There is no evidence of pulmonary hypertension. Great Vessels The asc aorta is normal in size. Venous The inferior vena cava is normal in size and collapses greater than 50% with inspiration. Pericardium/Pleural There is no evidence of pericardial effusion. Prior Study Comparison Changes noted compared to prior study dated: 02/22/2023. Progression of aortic valve stenosis. Measurements 2D Linear Measurements IVSd: 1.23 0.6-0.9/0.6-1.0 cm LVIDd: 3.54 3.9-5.3/4.2-5.9 cm LVIDd Index: 2.30 2.4-3.2/2.2-3.1 cm/m2 LVIDs: 2.16 2.0-3.6 cm LVPWd: 1.23 0.7-1.1 cm Ao Root: 2.70 2.1-3.5 cm LA Diam: 2.90 2.7-3.8/3.0-4.0 cm LAIDs Index: 1.88 1.5-2.3 cm/m2 LV Mass: 178.50 67-162/88-224 g LV Mass Index: 115.91 43-95/49-115 g/m2 LVOT Diam: 1.90 3.0+(-)1.3 cm 2D Systolic Function EF 4C: 65.10 >55% EF 2C: 75.00 >55% EF BiP: 69.10 >55% Mitral Valve MV Pk E: 0.56 MV PK A: 1.03 MV Decel Time: 259.00 E/A: 0.50 E'Lateral: 5.98 E'Medial: 3.70 E/E' Med: 15.20 E/E' Lat: 9.40 PHT: 76.00 MVA PHT: 2.89 Decel [place]: 2.17 Aortic Valve AoV Pk Todd: 5.54 AoV Mn Todd: 4.02 AoV VTI: 1.23 AoV Pk Grad: 123.00 Aov Mn Grad: 74.00 ADELIA Cont.VTI: 0.47 LVOT LVOT Pk Todd: 0.84 LVOT Mn Todd: 0.58 LVOT VTI: 0.21 LVOT Pk Grad: 3.00 LVOT Mn Grad: 2.00 LVOT Diam: 1.90 LVOT Area: 2.84 Diastolic Function MV Pk E: 0.56 MV Pk A: 1.03 E/A: 0.50 E'Medial: 3.70 E/E' Med: 15.20 E' Laterial: 5.98 E/E' Lat: 9.40 Right Ventricle TAPSE (mm): 20.00 TVS' Todd: 9.00 Tricuspid Valve TR Pk Todd: 2.25 TR Pk Grad: 20.00 RA Press: 3.00 RVSP: 23.00 Great Vessels Aorta Ao Root-2D: 2.70 2.0-3.7 cm Ao Asc: 2.80 2.1-3.4 cm Pulmonary Valve PV Pk Todd: 0.95 Peak PV Grad: 4.00 Updated in Other Vendor System with Status of Final Elliott Orellana MD electronically signed on 10/05/2024 12:35:27 PM with status of Final
[2024-10-05 07:17] LABS: Anion Gap 12 (12-20); Blood Urea Nitrogen 13 mg/dL (9-16); Calcium 9.7 mg/dL (8.4-10.2); Carbon Dioxide 24 mmol/L (22-29); Chloride 111 mmol/L (96-108); Creatinine Clr Calc Pharmacy 62.2; Estimated Glomerular Filt Rate > 60; Glucose Random 91 mg/dL (60-115); Potassium 4.6 mmol/L (3.3-5.1); Sodium 142 mmol/L (135-145)
[2024-10-05 07:31] VITALS: BP 133/91; PULSE 71; RESP 20; TEMP 36.6; O2SAT 97
[2024-10-05] MEDS: amLODIPine Besylate 5 MG TABLET PO (08:34)
[2024-10-05] MEDS: Magnesium Oxide 400 MG TABLET PO (08:34)
[2024-10-05] MEDS: Famotidine 20 MG TABLET PO (08:34)
[2024-10-05] MEDS: 0.9 % Sodium Chloride Flush 3 ML SYRINGE IVFLUSH (08:34)
[2024-10-05] MEDS: predniSONE 5 MG TABLET PO (08:34)
[2024-10-05] MEDS: Losartan Potassium 50 MG TABLET PO (08:35)
--- NOTE | 2024-10-05 09:09 | PM.PNCARD ---
Subjective Subjective Date of Service: 10/05/24 Interval history: She states she feels fine. Has no cardiac symptoms. She has been seen by Psychiatry to decide if she has capacity or not. According to him, apparently she does have capacity. Review of Systems Review of Systems Yes all other systems are reviewed and are negative Constitutional: Reports as per HPI and Reports no additional constitutional complaints Eyes: Reports as per HPI and Denies no additional eye complaints Denies system reviewed and no additional complaints, except as documented and Reports as per HPI Cardiovascular: Reports as per HPI, Reports no additional cardiovascular complaints, Denies acrocyanosis, Denies cool extremities, Denies chest pain, Denies leg edema, Denies lightheadedness, Denies palpitations and Denies dyspnea Respiratory: Reports as per HPI, Denies no additional respiratory complaints and Denies dyspnea Gastrointestinal: Reports as per HPI and Denies no additional gastrointestinal complaints Genitourinary: Reports as per HPI Musculoskeletal: Reports no additional musculoskeletal complaints and Reports as per HPI Skin/Breast: Reports system reviewed and no additional complaints, except as docu Reports system reviewed and no additional complaints, except as documented and Reports as per HPI Psychiatric: Reports no additional psychiatric complaints and Reports as per HPI Endocrine: Reports no additional endocrine complaints, Reports as per HPI and Denies palpitations Hematologic/Lymphatic: Reports no additional hematologic/lymphatic complaints and Reports as per HPI Allergic/Immunologic: Reports no additional allergic/immunologic complaints and Reports as per HPI Physical Exam Vital Signs: Last Vital Signs Temp 97.9 F 10/05/24 07:31 Pulse 71 10/05/24 07:31 Resp 20 10/05/24 07:31 BP 133/91 H 10/05/24 07:31 Pulse Ox 97 10/05/24 07:31 O2 Del Method Room Air 10/05/24 07:31 BMI result Body Mass Index 20.5 Const General: comfortable and no acute distress Orientation/consciousness: No patient oriented x3 HEENT Other: Unremarkable Head: Yes normal to inspection Neck Neck: Yes normal visual inspection Chest Chest palpation & inspection: normal inspection of the chest Resp Auscultation: clear to auscultation bilaterally Cardio Palpation: normal PMI Heart sounds: S1 normal heart sound present, S2 abnormal (absent), no gallops, Murmur heart sound present systolic III/ and at the right sternal border and no rubs GI Palpation (GI): Soft to palpation Back/Spine/Pelvis Other: unremarkable Skin General skin exam: no rashes or lesions noted Neuro General: No patient oriented x3 Extrem General: Yes normal to inspection Psych Mental Status: mental status grossly normal Objective Labs and Meds 10/05/24 06:15 10/05/24 06:15 Lab results: Laboratory Results - last 24 hr 10/05/24 06:15 WBC 9.4 RBC 5.55 H Hgb 15.5 Hct 45.1 MCV 81.3 MCH 27.9 MCHC 34.4 RDW 14.0 Plt Count 239 MPV 10.6 Absolute Nucleated RBC 0.000 Nucleated RBC % (auto) 0.0 Sodium 142 Potassium 4.6 Chloride 111 H Carbon Dioxide 24 Anion Gap 12 BUN 13 Creatinine 0.73 Estim Creat Clear Calc 62.2 Estimated GFR > 60 Random Glucose 91 Calcium 9.7 Progress Note: A&P Assessment and plan (1) Abnormal ECG: Status: Acute (2) Non-rheumatic aortic stenosis: Status: Acute Plan High sensitivity troponins are within range. Per last echocardiogram in 2022, LVEF is 60-65%. Severe aortic stenosis with a mean gradient of 63 mm Hg and valve area of 0.4 cm2. Not followed up since. Abnormal EKG could be related to progression of aortic stenosis/LV strain pattern. Concurrent coronary disease is possible. Repeat echocardiogram is pending today and most likely the aortic stenosis has progressed. Again discussed about need for further so many including cardiac catheterization/TAVR assessment. She repeatedly states that she would like to get the information processed as it is something too much too soon. She also wants to discuss with her counselors. I spoke with from Psychiatry who stated that she does have capacity to make decisions but she is still stated that she wants to think about it in her own time and also that she understands the fact that she may from this. She stated to him as well as me that is completely acceptable to her. Any case, we will try to get an echocardiogram today and arrange follow-up and then see what she wants to do. Discussed with . Time Spent With Patient Time: Total time managing care of this patient today ____ minutes. Progress Note: Quality Stroke Does the patient have a stroke diagnosis?: No Procedures Date of Service Date of Service: 10/05/24
--- OUTSIDE RECORDS SUMMARY | 2024-10-05 10:08 | XMS_ITS | Encounter Summary ---
Author Organization [employer] Address [address] [place] [address] Care Team Providers Care Hydrate Control Tender Name Role Phone Elidia Shepherd MD Primary Care Provider +1- [phone] Encounter Details Date Type Department Care Team (Late st Contact Info) Description 11/22/2023 Orders Only [facility] MEDICINE [address] [place], [place] [phone] Elidia Shepherd MD [address] [place], [place] [phone] Social History Tobacco Use Types Packs/Day Years [...] Description 12/28/2024 11:00 AM EDT Office Visit [facility] MEDICINE [address] [place] [address] Elidia Shepherd MD [address] [place] [address] documented as of this encounter Visit Diagnoses Not on filedocumented in this encounter Additional Health Concerns Assessment Noted Time PHQ-9 Depression Total Score: 0 11/22/19 23 9:33 AM EDT documented as of this encounter Care Teams Hydrate Control Tender Relationship Specialty Start Date End Date Elidia Shepherd MD [address] [place] [address] PCP - General Family Medicine 08/12/18 documented as of this encounter
--- OUTSIDE RECORDS SUMMARY | 2024-10-05 10:08 | XMS_ITS | Encounter Summary ---
Author Organization [employer] Address [address] [place] [address] Care Team Providers Care Volunteer Services Manager Name Role Phone Elidia Shepherd MD Primary Care Provider +1- [phone] Reason for Visit * Reason Comments Med Refill Encounter Details Date Type Department Care Team ([facility] st Contact Info) Description 05/21/2023 Refill [facility] WALK-IN [facility]ENTER [address] [place], [place] [phone] Eric Nair MD [address] [place] [address] Social History Tobacco Use Types Packs/Day Years [...] t he electric, gas, oil or water [employer] threatened to shut off services in your [...] Description 12/28/2024 11:00 AM EDT Office Visit [facility] MEDICINE [address] [place] [address] Elidia Shepherd MD [address] [place] [address] documented as of this encounter Visit Diagnoses Not on filedocumented in this encounter Additional Health Concerns Assessment Noted Time PHQ-9 Depression Total Score: 0 11/22/19 23 9:33 AM EDT documented as of this encounter Care Teams Volunteer Services Manager Relationship Specialty Start Date End Date Elidia Shepherd MD [address] [place] [address] PCP - General Family Medicine 08/12/18 documented as of this encounter
--- OUTSIDE RECORDS SUMMARY | 2024-10-05 10:08 | XMS_ITS | Encounter Summary ---
Author Organization [employer] Address [address] [place] [address] Care Team Providers Care Vp Patient Name Role Phone Elidia Shepherd MD Primary Care Provider +1- [phone] Encounter Details Date Type Department Care Team ([facility] st Contact Info) Description 09/16/2024 Telephone [facility] MEDICINE [address] [place], [place] [phone] Elidia Shepherd MD [address] [place] [address] Social History Tobacco Use Types Packs/Day Years [...] Description 12/28/2024 11:00 AM EDT Office Visit [facility] MEDICINE [address] [place] [address] Elidia Shepherd MD [address] [place] [phone] documented as of this encounter Visit Diagnoses Not on filedocumented in this encounter Additional Health Concerns Assessment Noted Time PHQ-9 Depression Total Score: 5 01/16/20 24 10:10 AM EDT documented as of this encounter Care Teams Vp Patient Relationship Specialty Start Date End Date Elidia Shepherd MD [address] [place] [id number] PCP - General Family Medicine 08/12/18 documented as of this encounter
--- OUTSIDE RECORDS SUMMARY | 2024-10-05 10:08 | XMS_ITS | Data Portability ---
Author Organization [place] [facility], [facility] in - [facility] Address [address] [place] [phone] Care Team Providers Care Pesticide Applicator Name Role Phone CHADLIOR AGNUIANO Referring Provider [phone] Assessment Encounter Date Assessment Date Assessment LastModified by Organization Details LastModified Time 05/03/2023 05/03/2023 I provided real -time medical direction via phone for this encounter, and was available for additional phone based assistance as needed. I have reviewed and agree with the Assessment and Plan as documented by the Good H[employer] Vendor. Patient given the opportunity to ask questions. She requested a friend come over because she was so nervous-Kazakh language line legal coordinator on for visit, questions and explanations Advised to call our service that she feels another visit, the close follow-up with PCP is warranted to call tomorrow -see if she can move up her May for his appointment. The medic wrote CRC's phone number down for the patient 1- [phone]; the patient could likely be read back the numbers on the paper I advised via the legal coordinator who also spoke with her friend- if develops CP/severe SOB/turning blue/uncontrolle d n/v/ syncope/ hi fever to call 911-she verbalized understanding of instructions [email or web address] Not available 05/04/2023 02:15:29 Plan of Treatment Reminders Order Date Submit Date Provider Last Modified By Organization Details Last Modified Time Details Appointments None recorded. Lab BMP, serum or plasma [email or web address] [facility], [address] [place] [address], [id number], 02:19:04 rapid SARS CoV 2 Ag, QL IA, respiratory specimen [address] [facility], [address] [place] [address], [id number], 3 09:05:36 Referral None recorded. Procedures None recorded. Surgeries None recorded. Imaging None recorded. Medication Orders sodium chloride 0.9 % intravenous solution 2022 023 [email or web address] 0 Not available 02:19:04 Patient TargetsNo targets recorded. Patient Instructions Encounter Date Encounter Id Patient Instructions Last Modified By Organization Details Last Modified Time 05/03/2023 [id number] orthostatic vitals* - see vs [email or web address] Not available 05/04/2023 02:19:04 Reason for Referral None Reported. Results Created Date Observation Date Name Description Value Unit Range Abnormal Flag Note LastModifiedBy Organization Detail LastModifiedTime 05/04/2005/04/2023 rapid SARS CoV 2 Ag, QL IA, respi rator y speci men rapid SARS CoV 2 Ag, QL IA, respiratory specimen negati ve Not Available [facility] - [facility] [address] [place] [address], [id number], 05/03/2023 14:19:53 05/04/2005/04/2023 BMP, serum or plasm a BUN 16 Not Available Main - Ins [address], [phone], 05/03/2023 14:18:44 05/04/2005/04/2023 BMP, serum or plasm a Ca Ionize d calciu m 1.3 Not Available Main - [facility] [address] [place] [address], [id number], 05/03/2023 14:18:44 05/04/2005/04/2023 BMP, serum or plasm a CI- 105 Not Available Main - [facility] [address], [phone], 05/03/2023 14:18:44 05/04/2005/04/2023 BMP, serum or plasm a CRE 1 Not Available Main - [facility] [address], [address], 05/03/2023 14:18:44 05/04/2005/04/2023 BMP, serum or plasm a GLU 109 Not Available Main - [facility] [address], [address], 05/03/2023 14:18:44 05/04/2005/04/2023 BMP, serum or plasm a K+ 3.6 Not Available Main - [facility] [address], [phone], 05/03/2023 14:18:44 05/04/2005/04/2023 BMP, serum or plasm a Na+ 143 Not Available Main - [facility] [address], [address], 05/03/2023 14:18:44 05/04/2005/04/2023 BMP, serum or plasm a tCO2 26 Not Available Main - [facility] [address], [address], 05/03/2023 14:18:44 Result Notes None recorded. Medical [...] Address Organization Details Last Updated DateTime 05/03/2023 09221.9 g 21.6 kg/m2 May Solomon MD [address] [place] [address],[address], [place], [phone], [facility] 05/03/2023 14:08:50 Social History None recorded. Functional Status None recorded. Mental Status None recorded. Family History Nothing Reported. Medical History No medical history recorded. Gynecological HistoryNo gynecological history recorded. Obstetrics History GPAL:G 0 P 0 0 0 0 Past Encounters Encounter ID Performer Location Encounter Start Date Encounter Closed Date Diagnosis/Indication Diagnosis SNOMED-CT Code Diagnosis ICD10 Code Diagnosis Note [id number] May oSlomon MD [facility] [employer] [address] [place] [phone] 05/03/2023 14:07:49 05/04/2023 02:19:18 Accidental fall 711204178 W19.XXXS Patient orthostati c so ordered BMP/COVID [...] Yoder Member ID Guarantor Name 05/03/2023 1 [facility] - DOS ON OR AFTER 2022 - DUAL ELIGIBLE - SKILLED NURSING OPTIONS AND ONE CARE (MEDICARE REPLACEMENT/AD VANTAGE - HMO) Lotus Bagley [id number] Lotus Bagley Notes Date Note Type Note Provider Name and Address Organization Details Recorded Time 05/03/2023 text/html HPI: Member reported high BP this AM and feeling weak and dizzy, had a fall 4 days ago, has bruising on face, arms and legs, stated started taking an old antibiotic to help with facial swelling, in pain and not given anything at [facility]. Has appt with her PCP on 05/15 at [facility]. Member is 72, female, illiterate, HTN, panic attacks, L leg pain, carpal tunnel syndrome, arthritis, memory impairment, unsteady gait, frequent falls, paranoid schizophrenia, incontinence and RA with severe pains as baseline. Member is due for TAVR for severe aortic stenosis with Dr. Orellana at [facility], and has been hesitant about getting the Cardiac Cath with procedure for fear of recovery. Reviewing further with PCP and Evs Attendant to make a decision. Stated at times dizzy, but not today, stated she fell due tripping outside on a step. ................... ................... ................... ................... ................... ................... ................... ........ [facility] Nursing Assessment: Comments: Reviewed - Diane CARTWRIGHT: Patient exceedingly anxious regarding her blood pressure which was normal on EMS arrival. Discharge paperwork from [facility] reports CT scans(pleural) were negative but [...] neck pain on movement. She went to [facility] the day after her ER visit for her neck and they are supposed to be ordering her a neck brace.Patient has no COVID symptoms but is anxious that she was exposed to COVID while in the ER................. ................... ................... ................... ................... ................... ................... .......... [employer] Note From Anaid Patricio: Sent to a call for a pt complaining of hypertension, weakness, dizziness, and pain after a fall. [facility] arrives on scene,legal coordinator line used during visit as pt's primary language is Kazakh. Pt is alert and oriented to person, [...] 4 days ago and was evaluated in [facility] ED. D/C paperwork states pt's CT scans (not specified) were normal, with no broken bones. Pt was discharged with script for Acetaminophen and Neosporin (for facial abrasions). Pt states she had neck pain after the fall and went to [facility] on 05/01. Pt states she is waiting for a neck brace prescribed by [facility]. Pt has been taking Acetaminophen and Ibuprofen as prescribed. Pt states she took some Amoxicillin 500mg capsules that she was prescribed in the past because she thought it would help with swelling. Pt unsure how many she has taken, but states at least one today. Pt advised she should stop taking Amoxicillin. [facility] consulted and orders orthostatics. (supine)BP:139/87, P:74, (standing) BP:113/78, P:86; [facility] orders POC bloodwork and Normal Saline 500ml [...] Results for Istat Chem 8+: uploaded to [employer]. Rapid covid test: neg; Normal Saline 500ml IV administered, and pt states she is feeling better. Lung sounds: clear bilaterally; (standing) BP:129/87, P:81; C/legal coordinator advise pt her blood pressure is normal. Pt is advised covid test:neg; [facility]. Pt advised to continue using Neosporin, Tylenol, and Ibuprofen as prescribed. Red flags discussed. Pt is advised to keep upcoming appt with PCP (possibly in May). Pt has no further questions. ................... ................... ................... ................... ................... ................... ................... ........ Disposition: Fulfilled May Solomon MD [address] [place] [address],[address] [facility], [place], [phone], [facility] 05/04/2023 20:32:50 OBGyn Episode No OBEpisode recorded.
--- OUTSIDE RECORDS SUMMARY | 2024-10-05 10:08 | XMS_ITS | Encounter Summary ---
Author Organization [employer] [facility] Address [address] 7t [place] [address] Care Team Providers Care Gear Repair Supervisor Name Role Phone Elidia Shepherd MD Primary Care Provider [phone]- [phone] Encounter Details Date Type Department Care Team (Late st Contact Info) Description 10/03/2024 Orders Only GENERIC EXTERNAL DATA DEPARTMENT Provider, Generic External Data Social History Tobacco Use Types Packs/Day Years [...] Description 12/28/2024 11:00 AM EDT Office Visit [facility] MEDICINE [address], [place] [phone] Elidia Shepherd MD [address] [place], [place] [phone] documented as of this encounter Procedures Procedure Name Priority Date/Time Associated Diagnosis Comments URINALYSIS WITH REFLEX MICROSCOPIC Routine 10/03/2024 9:03 PM EST D DIMER HIGH SENSITIVITY Routine 10/03/2024 8:02 PM EST HIGH SENSITIVITY TROPONIN I Routine 10/03/2024 8:02 PM EST documented in this encounter Results * Urinalysis w/reflex microscopic (10/03/2024 9:03 PM EST) Color Urine Yellow [facility] Appearance Urine Clear [facility] PH >=9.0 5.0 - 9.0 [facility] Glucose Urine UA Negative Negative mg/dL [facility] Urine Blood Negative Negative [facility] Specific [place] - Urine 1.010 1.005 - 1.025 [facility] Urine Protein Negative Neg-Trace mg/dL [facility] Urine Ketones Negative Negative mg/dL [facility] Nitrite Urine Negative Negative [facility] Leukocyte Esterase Urine Negative Negative [facility] 10/03/2024 9:03 PM EST 10/03/2024 9:06 PM EST Narrative [facility] - 10/03/2024 9:11 PM EST [id number], Clean Catch Generic External Data Provider LAB URINE ORDERAB LES Final Result Performing Organization Address [facility] Number [facility] [address] [place] [phone] * High Sensitivity Troponin I (10/03/2024 8:02 PM EST) Pathologist [facility] TROPONIN I HIGH SENSITIVITY 8.8 <3.5 - 17.0 ng/L [facility] Comment:The Vazquez high sens itivity Troponin-I results should beused in conjunction with other diagnostic information suchas ECG, clinical observations and information, and patientsymptoms to aid in the diagnosis of AR. 10/03/2024 8:02 PM EST 10/03/2024 8:17 PM EST Generic External Data Provider LAB BLOOD ORDERAB LES Final Result Performing Organization Address [facility] Number [facility] [address] [place] [address] [phone] * D Dimer High Sensitivity (10/03/2024 8:02 PM EST) Pathologist [facility] D Dimer High Sensitivity <150 NG/ML [facility] Comment:D-DIMER HS REFERENCE RANGENote: Our assay reports D-Dimer Units (D- DU).The cut-off value for venous thromboembolic (VTE) disease is230 ng/mL. This value has a very high negative predictivevalue when the patient has a low to moderate clinicalprobability of VTE.The upper limit of normal is 243 ng/mL. 10/03/2024 8:02 PM EST 10/03/2024 8:17 PM EST Generic External Data Provider LAB BLOOD ORDERAB LES Final Result Performing Organization Address [facility] Phone Number [facility] [address] [place] [address] [phone] documented in this encounter Visit Diagnoses Not on filedocumented in this encounter Additional Health Concerns Assessment Noted Time PHQ-9 Depression Total Score: 5 01/16/20 24 10:10 AM EDT documented as of this encounter Care Teams Gear Repair Supervisor Relationship Specialty Start Date End Date Joao, MD Elidia [address] [place] [phone] PCP - General Family Medicine 08/12/18 documented as of this encounter
--- OUTSIDE RECORDS SUMMARY | 2024-10-05 10:08 | XMS_ITS | Encounter Summary ---
Author Organization [employer] [facility] Address [address] [facility] 7t [place] [address] Care Team Providers Care Underground Supervisor Name Role Phone Elidia Shepherd MD Primary Care Provider +1- [phone] Encounter Details Date Type Department Care Team (Late st Contact Info) Description 03/07/2023 Orders Only [facility] MEDICINE [address] [place] [phone] Elidia Shepherd MD [address] [place] [address] [phone] Social History Tobacco Use Types Packs/Day Years [...] Description 12/28/2024 11:00 AM EDT Office Visit [facility] MEDICINE [address] [place] [address] [phone] Elidia Shepherd MD [address] [place] [address] [phone] documented as of this encounter Visit Diagnoses Not on filedocumented in this encounter Additional Health Concerns Assessment Noted Time PHQ-9 Depression Total Score: 0 11/22/19 23 9:33 AM EDT documented as of this encounter Care Teams Underground Supervisor Relationship Specialty Start Date End Date Elidia Shepherd MD [address] [place] [address] PCP - General Family Medicine 08/12/18 documented as of this encounter
--- OUTSIDE RECORDS SUMMARY | 2024-10-05 10:08 | XMS_ITS | Clinical Summary ---
Author Organization [employer] Address [address] [facility] 7t [place] [address] Care Team Providers Care Program Development Manager Name Role Phone Elidia Shepherd MD Primary Care Provider +1- [phone] Allergies No known active allergies Medications Calcium [...] to follow-up 01/16/2024. -new order placed 06/15/24, INFLATED PAD BUFFER aware Assessment & Plan (06/16/2024 5:58 AM EST): -order placed 05/15/2023, given pt the number to call and advised to follow-up 01/16/2024. -new order placed 06/15/24, INFLATED PAD BUFFER aware Assessment & Plan (01/16/2024 10:41 AM EDT): -order placed 05/15/2023, given pt the number to call and advised to follow-up 01/16/2024. Colon cancer screening 09/18/2023 Overview (06/15/2024): -declined colonoscopy -cologuard order placed 05/2023, discussed with INFLATED PAD BUFFER how to obtain sample. -cologuard placed again 01/16/2024 ad again on 06/15/24, INFLATED PAD BUFFER aware and has video on how to obtain sample Assessment & Plan (06/16/2024 5:58 AM EST): -declined colonoscopy -cologuard order placed 05/2023, discussed with INFLATED PAD BUFFER how to obtain sample. -cologuard placed again 01/16/2024 ad again on 06/15/24, INFLATED PAD BUFFER aware and has video on how to obtain sample Assessment & Plan (01/16/2024 10:39 AM EDT): -declined colonoscopy -cologuard order placed 05/2023, discussed with INFLATED PAD BUFFER how to obtain sample. -cologuard placed again 01/16/2024 Cellulitis 05/11/2023 Other specified health status 05/08/2023 Overview (06/16/2024): -next physical exam due after 06/15/2025 -eye care recommended -dental home is [facility] -health care proxy filed 06/15/24 Assessment & Plan (06/16/2024 5:55 AM EST): -next physical exam due after 06/15/2025 -eye care recommended -dental home is [facility] -health care proxy filed 06/15/24 Assessment & Plan (01/16/2024 10:41 AM EDT): -next physical exam due after 05/15/2024 -eye care recommended -dental home is [facility] Assessment & Plan (05/15/2023 10:07 AM EDT): -next physical exam due after 05/15/2024 -eye care facilitated by -dental home is Complex care coordination 11/21/2022 Overview (06/15/2024): -New care team specialistTanvi, [facility] [phone]. 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 Deyanira will assist with Tb clinic and cardiology. Placed VNA with [employer] for daily TB meds, cardiac teaching, mediation assistance. Spoke with Ceci, therapist who continues to work with pt to encourage medical compliance. Assessment & Plan (06/16/2024 5:57 AM EST): -New care team specialistTanvi, [facility] [phone]. 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 Deyanira will assist with Tb clinic and cardiology. Placed VNA with [employer] for daily TB meds, cardiac teaching, mediation assistance. Spoke with Ceci, therapist who continues to work with pt to encourage medical compliance. Assessment & Plan (01/16/2024 7:31 PM EDT): -INFLATED PAD BUFFER Tanvi, sofya Hagan Years [phone]. 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 Deyanira will assist with Tb clinic and cardiology. Placed VNA with [employer] for daily TB meds, cardiac teaching, mediation assistance. Spoke with Ceci, therapist who continues to work with pt to encourage medical compliance. Assessment & Plan (05/15/2023 1:04 PM EDT): -Therapist Mara Coleman at [facility] [phone] -[facility] care team Deyanira Becker [phone] [id number] -[facility] Geriatric Benefits Consultant Vi Drummond -PC Miranda Drummond [facility] [phone] Call placed to [facility] with Deyanira Becker 11/21/2022 to discuss concerns about pts inability to understand severity of her condition and lack of follow through with cardiology and Tb clinic. Deyanira will assist with Tb clinic and cardiology. I have placed VNA with [employer] for daily TB meds, cardiac teaching, mediation assistance Assessment & Plan (11/21/2022 10:44 AM EDT): -Therapist Mara Coleman at [facility] [phone] -[facility] care team Deyanira Cline Becker [phone] [id number] -[facility] Geriatric Benefits Consultant Vi Drummond Call placed to [facility] with Deyanira Becker 11/21/2022 to discuss concerns about pts inability to understand severity of her condition and lack of follow through with cardiology and Tb clinic. Deyanira will assist with Tb clinic and cardiology. I will place VNA with [employer] for daily TB meds, cardiac teaching, mediation assistance Illiteracy 10/17/2022 [place]: positive 10/17/2022 Overview (05/15/2023): TB clinic NOS x 3- case closed Treated by [facility] rheumatology with spotty therapy with isoniazid. [...] with complete of therapy despite extensive social staff worker. Assessment & Plan (06/16/2024 5:54 AM EST): TB clinic NOS x 3- case closed Treated by [facility] rheumatology with spotty therapy with isoniazid. From 12/08/21 she picked up every other month. Was to be completed 02/09/23 Patient's fill history for isoniazid is as follows all for 30 day supplies: 12/08/21 02/20/22 03/28/22 04/24/22 09/10/22 11/01/22 She has not been able to comply with complete of therapy despite extensive social staff worker. Assessment & Plan (01/16/2024 10:43 AM EDT): TB clinic NOS x 3- case closed Treated by [facility] rheumatology with spotty therapy with isoniazid. From 12/08/21 she picked up every other month. Was to be completed 02/09/23 Patient's fill history for isoniazid is as follows all for 30 day supplies: 12/08/21 02/20/22 03/28/22 04/24/22 09/10/22 11/01/22 She has not been able to comply with complete of therapy despite extensive social staff worker. Assessment & Plan (05/15/2023 1:08 PM EDT): TB clinic NOS x 3- case closed Treated by [facility] rheumatology with spotty therapy with isoniazid. [...] with complete of therapy despite extensive social staff worker. Medically noncompliant 10/17/2022 Overview (05/15/2023): Patient is [...] Seen by rheumatology, Rc Schwab MD with [facility] 03/28/2022. -She had a positive response to prednisone and would need to be transitioned to medications that would have less custodial toxicity such as methotrexate. However, it is [...] I explained the disease process to the INFLATED PAD BUFFER and the need for certain medication. The INFLATED PAD BUFFER will try to talk with her and [...] I explained the disease process to the INFLATED PAD BUFFER and the need for certain medication. The INFLATED PAD BUFFER will try to talk with her and [...] Seen by rheumatology, Rc Schwab MD with [facility] 03/28/2022. -She had a positive response to prednisone and would need to be transitioned to medications that would have less custodial toxicity such as methotrexate. However, it is [...] is treating her RA with prednisone from [place]. She has not demonstrated ability to comply [...] I explained the disease process to the INFLATED PAD BUFFER and the need for certain medication. The INFLATED PAD BUFFER will try to talk with her and [...] I explained the disease process to the INFLATED PAD BUFFER and the need for certain medication. The INFLATED PAD BUFFER will try to talk with her and [...] Seen by rheumatology, Rc Schwab MD with [facility] 03/28/2022. -She had a positive response to prednisone and would need to be transitioned to medications that would have less custodial toxicity such as methotrexate. However, it is [...] I explained the disease process to the INFLATED PAD BUFFER and the need for certain medication. The INFLATED PAD BUFFER will try to talk with her and [...] I explained the disease process to the INFLATED PAD BUFFER and the need for certain medication. The INFLATED PAD BUFFER will try to talk with her and [...] Seen by rheumatology, Rc Schwab MD with [facility] 03/28/2022. -She had a positive response to prednisone and would need to be transitioned to medications that would have less custodial toxicity such as methotrexate. However, it is [...] is treating her RA with prednisone from [place]. She has not demonstrated ability to comply with DMARD regimen and it is unlikely she will complete INH therapy. Assessment & Plan (11/20/2022 10:01 AM EDT): Diagnosed 11/2021. Seen by rheumatology, Rc Schwab MD with [facility] 03/28/2022. She had a positive response to prednisone and would need to be transitioned to medications that would have less custodial toxicity such as methotrexate. However, it is [...] She is asymptomatic. I called her [facility] critical care rn Deyanira Becker [phone] x [phone] on 03/07/23 and left message requesting call [...] She is asymptomatic. I called her [facility] critical care rn Deyanira Becker [phone] on 03/07/23 and left message requesting call [...] She is asymptomatic. I called her [facility] critical care rn Deyanira Becker [phone] on 03/07/23 and left message requesting call [...] She is asymptomatic. I called her [facility] critical care rn Deyanira Becker [phone] on 03/07/23 and left message requesting call [...] elder services for self neglect. Therapist Mara [phone] Assessment & Plan (06/16/2024 5:55 AM EST): [...] elder services for self neglect. Therapist Mara [phone] Assessment & Plan (01/16/2024 10:43 AM EDT): [...] elder services for self neglect. Therapist Mara [phone] Assessment & Plan (05/15/2023 10:03 AM EDT): [...] elder services for self neglect. Therapist Mara [phone] Assessment & Plan (11/21/2022 10:06 AM EDT): [...] elder services for self neglect. Therapist Mara [phone] Elevated levels of transaminase & lactic acid [...] NOS x 2- case closed Treated by [facility] rheumatology completed therapy with isoniazid. From 12/08/21 she picked up every other month. Was to be completed 02/09/23 ??Patient's fill history for isoniazid is as follows all for 30 day supplies: ? ? 12/08/21 ? ? 02/20/22 ? ? 03/28/22 ? ? 04/24/22 ? ? 09/10/22 ? ? 11/01/22 Encounters Date Type Department Care Team Description 10/03/2024 Orders Only GENERIC EXTERNAL DATA DEPARTMENT Provider, Generic External Data 09/25/2024 Telephone [facility] MEDICINE [address] [place] [address] Elidia Shepherd MD May recalls 09/25/2024 Travel 09/16/2024 Telephone [facility] MEDICINE [address] [place] [address] Elidia Shepherd MD from Last 3 Months Social [...] is your housing situation today? I have marcinkrista bustos 01/16/[address] you [...] Description 12/28/2024 11:00 AM EDT Office Visit [facility] MEDICINE [address] [place] [address] Elidia Shepherd MD [address] [place], [place] [phone] Health Maintenance Due Date Last Done Comments [...] REFLEX MICROSCOPIC Routine 10/03/2024 9:03 PM EST HIGH SENSITIVITY TROPONIN I Routine 10/03/2024 8:02 PM EST D DIMER HIGH SENSITIVITY Routine 10/03/2024 8:02 PM EST LIPID PANEL, STANDARD Routine 01/13/2024 8:32 AM EDT Dyslipidemia HM HEPATITIS C ANTIBODY Routine 11/21/2021 MAMMOGRAPHY Routine 05/07/2017 from Last 3 Months or Most Recently Relevant to Health Maintenance Results * Urinalysis w/reflex microscopic (10/03/2024 9:03 PM EST) Color Urine Yellow [facility] Appearance Urine Clear [facility] PH >=9.0 5.0 - 9.0 [facility] Glucose Urine UA Negative Negative mg/dL [facility] Urine Blood Negative Negative [facility] Specific [place] - Urine 1.010 1.005 - 1.025 [facility] Urine Protein Negative Neg-Trace mg/dL [facility] Urine Ketones Negative Negative mg/dL [facility] Nitrite Urine Negative Negative [facility] Leukocyte Esterase Urine Negative Negative [facility] 10/03/2024 9:03 PM EST 10/03/2024 9:06 PM EST Narrative [facility] - 10/03/2024 9:11 PM EST [id number], Clean Catch Generic External Data Provider LAB URINE ORDERAB LES Final Result Performing Organization Address [facility] Co de Phone Number [facility] [address] [place] [phone] * D Dimer High Sensitivity (10/03/2024 8:02 PM EST) [facility] D Dimer High Sensitivity <150 NG/ML [facility] Comment:D-DIMER HS REFERENCE RANGENote: Our [...] ORDERAB LES Final Result Performing Organization Address [facility] Co de Phone Number [facility] [address] [place] [address] [phone] * High Sensitivity Troponin I (10/03/2024 8:02 PM EST) Pathologist [facility] TROPONIN I HIGH SENSITIVITY 8.8 <3.5 - 17.0 ng/L [facility] Comment:The Vazquez high sens itivity Troponin-I results should beused in conjunction with other diagnostic information suchas ECG, clinical observations and information, and patientsymptoms to aid in the diagnosis of DC. 10/03/2024 8:02 PM EST 10/03/2024 8:17 PM EST us Generic External Data Provider LAB BLOOD ORDERAB LES Final Result [facility] [address] [place] [address] [phone] * (ABNORMAL) Lipid Panel, Standard (01/13/2024 8:32 AM EDT) Triglycerides 210(H) <150 mg/dL [facility] Comment:Desirable Triglyceri de: less than 150 mg/dLBorderline High Triglyceride 150-199 mg/dLHigh Triglyceride: 200-499 mg/dLVery High Triglyceride: greater than or equal to 5OO mg/dL Cholesterol 295(H) <200 mg/dL [facility] Comment:Desirable Cholestero l: less than 200 mg/dLBorderline High Cholesterol: 200-239 mg/dLHigh Cholesterol: greater than 239 mg/dL LDL Cholesterol Calculated 206(H) <100 mg/dL [facility] Comment:Desirable LDL: less than 100 mg/dLNear Optimal/Above Optimal LDL: 110- 129 mg/dLBorderline High LDL: 130-159 mg/dLHigh LDL: 160-189 mg/dLVery High LDL: greater than or equal to 190 mg/dL HDL Cholesterol 47 >40 mg/dL [facility] Comment:Desirable HDL: great er than 40 mg/dL Note: This HDL assay may give artificially low results in patients with liver disease. Blood Venous blood specimen / Unknown 01/13/2024 8:32 AM EDT 01/13/2024 11:55 AM EDT us Elidia Shepherd MD LAB BLOOD ORDERABLES Final Result [facility] [address] [place] [phone] * HM Hepatitis C Antibody (11/21/2021) Hepatitis C Antibody Nonreactive Blood us Historical Provider HEALTH MAINTENANCE Final Result * Mammography (05/07/2017) Mammogram BIRADS 1 Anatomical Region Laterality Modality Other Historical Provider HEALTH MAINTENANCE Final Result from Last 3 Months or Most Recently Relevant to Health Maintenance Insurance [facility] Advance Directives Documents on File Type Date Recorded Patient Preschool Associate Teacher Expl anation Advance Directives and Living Will 06/15/2024 Health Care Proxy 06/15/24 Care Teams Program Development Manager Relationship Specialty Start Date End Date [place], MD Elidia [address] [place] [phone] PCP - General Family Medicine 08/12/18
--- OUTSIDE RECORDS SUMMARY | 2024-10-05 10:08 | XMS_ITS | Encounter Summary ---
Author Organization [employer] Address [address] [facility] 7t [place] [address] Care Team Providers Care Sprinkler Fitter Helper Name Role Phone Elidia Shepherd MD Primary Care Provider [phone] Reason for Visit * Reason Onset Date Comments May recalls 09/25/2024 Encounter Details Date Type Department Care Team ([facility] st Contact Info) Description 09/25/2024 Telephone [facility] MEDICINE [address] [place] [address] Elidia Shepherd MD [address] [place] [address] December recalls Social History Tobacco Use Types [...] [place] - 09/25/2024 3:02 PM EST ..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 Appointment reminder sent via mail. documented in this encounter Plan of Treatment Upcoming Encounters Date Type Department Care Team (Late st Contact Info) Description 12/28/2024 11:00 AM EDT Office Visit [facility] MEDICINE [address] [place] [phone] Elidia Shepherd MD [address] [place] [address] documented as of this encounter Visit Diagnoses Not on filedocumented in this encounter Additional Health Concerns Assessment Noted Time PHQ-9 Depression Total Score: 5 01/16/20 24 10:10 AM EDT documented as of this encounter Care Teams Sprinkler Fitter Helper Relationship Specialty Start Date End Date Elidia Shepherd MD [address] [place] [phone] PCP - General Family Medicine 08/12/18 documented as of this encounter
--- OUTSIDE RECORDS SUMMARY | 2024-10-05 10:08 | XMS_ITS | Encounter Summary ---
Author Organization [employer] [facility] Address [address] [facility] 7t [place] [address] Care Team Providers Care Lead Neurodiagnostic Technologist Name Role Phone Elidia Shepherd MD Primary Care Provider +1- [phone] Encounter Details Date Type Department Care Team (Late st Contact Info) Description 09/18/2022 Abstract [facility] [address] [place] [address] [phone] Elidia Shepherd MD [address] [place] [address] [phone] Social History Tobacco Use Types Packs/Day Years [...] Description 12/28/2024 11:00 AM EDT Office Visit [facility] [address] [place] [address] [phone] Elidia Shepherd MD [address] [place] [address] [phone] documented as of this encounter Procedures Procedure [...] on filedocumented in this encounter Care Teams Lead Neurodiagnostic Technologist Relationship Specialty Start Date End Date Elidia Shepherd MD [address] [place] [address] [phone] PCP - General Family Medicine 08/12/18 documented as of this encounter
--- OUTSIDE RECORDS SUMMARY | 2024-10-05 10:08 | XMS_ITS | Encounter Summary ---
Author Organization [employer] Address [address] [facility] 7t [place] [address] Care Team Providers Care Director Sterile Processing Name Role Phone Elidia Shepherd MD Primary Care Provider +1- [phone] Encounter Details Date Type Department Care Team [...] 11:00 AM EDT Office Visit [facility] [address] [place] [phone] Elidia Shepherd MD [address] [place] [phone] documented as of this encounter Visit Diagnoses Not on filedocumented in this encounter Additional Health Concerns Assessment Noted Time PHQ-9 Depression Total Score: 5 01/16/20 24 10:10 AM EDT documented as of this encounter Care Teams Director Sterile Processing Relationship Specialty Start Date End Date Elidia Shepherd MD [address] [place] [phone] PCP - General Family Medicine 08/12/18 documented as of this encounter
--- OUTSIDE RECORDS SUMMARY | 2024-10-05 10:08 | XMS_ITS | Encounter Summary ---
Author Organization [employer] Address [address] [facility] 7t [place] [address] Care Team Providers Care Unbundler Name Role Phone Elidia Shepherd MD Primary Care Provider +1- [phone] Reason for Visit * Reason Onset Date Comments Request For Order(s) 05/02/2023 Encounter Details Date Type Department Care Team ([facility] st Contact Info) Description 05/02/2023 Telephone [facility] [address] [place] [address] Elidia Sehpherd MD [address] [place] [address] Request For Order(s) Social History Tobacco Use Types Packs/Day Years [...] encounter Miscellaneous Notes * Telephone Encounter - Sharda Ankur - 05/02/2023 11:49 AM EDT Tc cindy rosado with [facility] requesting VNA orders as well as a dexa to be ordered by PCP due to a fall 04/30. Please contact ashlee at [phone] ext [phone] documented in this encounter Plan of Treatment Upcoming Encounters Date Type Department Care Team (Late st Contact Info) Description 12/28/2024 11:00 AM EDT Office Visit [facility] [address] [place] [address] Elidia Shepherd MD [address] [place] [address] documented as of this encounter Visit Diagnoses Not on filedocumented in this encounter Additional Health Concerns Assessment Noted Time PHQ-9 Depression Total Score: 0 11/22/19 23 9:33 AM EDT documented as of this encounter Care Teams Unbundler Relationship Specialty Start Date End Date Elidia Shepherd MD [address] [place] [phone] PCP - General Family Medicine 08/12/18 documented as of this encounter
--- OUTSIDE RECORDS SUMMARY | 2024-10-05 10:08 | XMS_ITS | Encounter Summary ---
Author Organization [employer] [facility] Address [address] [facility] 7t [place] [address] Care Team Providers Care Stress Engineer Name Role Phone Elidia Sehpherd MD Primary Care Provider +1- [phone] Encounter Details Date Type Department Care Team (Late st Contact Info) Description 11/23/2022 Orders Only [facility] [address] [place] [address] [phone] Terrie Siddiqi, MARIO Social History Tobacco Use [...] 11:00 AM EDT Office Visit [facility] [address] [place] [phone] Elidia Shepherd MD [address] [place] [address] [phone] documented as of this encounter Visit Diagnoses Not on filedocumented in this encounter Additional Health Concerns Assessment Noted Time PHQ-9 Depression Total Score: 0 11/22/19 23 9:33 AM EDT documented as of this encounter Care Teams Stress Engineer Relationship Specialty Start Date End Date Elidia Shepherd MD [address] [place] [address] PCP - General Family Medicine 08/12/18 documented as of this encounter
--- OUTSIDE RECORDS SUMMARY | 2024-10-05 10:08 | XMS_ITS | Clinical Summary ---
Author Organization [facility] Address [address] [place] [address] Care Team Providers Care Viscosity Inspector Name Role Phone Pcp, No Primary Care Provider Unavailabl e Allergies No known active allergies Medications Medication Sig Dispensed Refills Start Date End Date Status acetaminophen (TYLENOL) 500 MG tablet Take 1 tablet (500 mg total) by mouth every 4 (four) hours as needed for mild pain. Active Bacitracin-Polymyxin B (SM Double Antibiotic) [id number] UNIT/GM Ointment APPLY TO THE AFFECTED AREA(S) [...] place to sleep or slept in a fci (including now)? No 05/13/2023 Sex and Gender [...] Decision Thoroughly Discussed with: Patient Care Teams Viscosity Inspector Relationship Specialty Start Date End Date Pcp, No PCP - General General Medicine 05/11/23
[2024-10-05 12:00] VITALS: BP 126/75; PULSE 85; RESP 20; TEMP 36.8; O2SAT 97
--- NOTE | 2024-10-05 12:59 | PM.DS ---
DS: Providers Provider Date of Service: 10/05/24 Date of admission: 10/03/24 23:18 Date of discharge: 10/05/24 Primary care physician: Elidia Shepherd MD Consults: 10/03/24 23:20 Consult to Cardiology Routine Consulting Provider: Elliott Orellana Reason for consultation: abnormal EKG Has provider been notified: Yes 10/04/24 10:48 Consult to Psychiatry Routine Consulting Provider: [facility] Psych Covering Reason for consultation: for capacity Has provider been notified: No DS: Diagnosis Discharge Diagnosis (1) Aortic stenosis, severe: Status: Acute (2) Schizophrenia: Status: Acute (3) Cognitive impairment: Status: Acute (4) Non-rheumatic aortic stenosis: Status: Acute DS: Summary Hospital Course Hospital Course: Date of Service: 10/03/24 Attending physician on admission: [facility] Chief Complaint: high blood pressure, nausea, vomiting, weakness Patient is a 74-year-old female with a past medical history significant for RA on prednisone, schizophrenia, severe aortic stenosis, anxiety and hypertension, who presented to the ED due to reported high blood pressure (150/100), vomiting, dizziness and lethargy. She reports when her blood pressures is high, she feels nauseous, vomits and is dizzy. She denies any chest pain, headache, shortness of breath or abdominal pain. She only had 1 episode of vomiting and feels better now. There is a significant barrier regarding medical knowledge the patient had a very hard time understanding questions and responses even with wood stock blank handler present and multiple explanations. Hospital course: 74-year-old female with a past medical history significant for RA on prednisone, schizophrenia, severe aortic stenosis, anxiety and hypertension, who presented to the ED due to reported high blood pressure (150/100), vomiting, dizziness and lethargy. EKG was concerning for inverted T waves ?NSTEMI ,Treated with IV Zofran subsequently admitted to telemetry for observation / echocardiogramas per cardiology recommendation. Hypertension associated with vomiting, dizziness and lethargy, and abnormal EKG, blood pressure improved with home medications, seen by coin machine operator, it was felt that normal EKG could be related to progression of aortic stenosis/left ventricular strain pattern , echo showed no wall motion abnormality, but showed worsening aortic stenosis, patient had no symptoms of chest pain, no shortness a breath, electrolytes were normal ,recommend to continue home medication and outpatient follow-up with coin machine operator as outpatient, capacity consult was obtained by psychiatry and patient has capacity to make medical decisions. strongly recommend compliance with home medications and follow-up. RA - continue prednisone 5 mg twice daily schizophrenia, anxiety - not on home medications Time Attestation Discharge Coordination Time (in mins): 40 Quality: Safe Use of Opioids Does Pt have an Active Cancer Diagnosis on the Problem List?: No Quality: Stroke Does the patient have a stroke diagnosis?: No Physical Exam Vital Signs: Vital Signs: Last Vital Signs Temp 98.3 F 10/05/24 12:00 Pulse 85 10/05/24 12:00 Resp 20 10/05/24 12:00 BP 126/75 10/05/24 12:00 Pulse Ox 97 10/05/24 12:00 O2 Del Method Room Air 10/05/24 12:00 BMI result Body Mass Index 20.5 Const: Other: General resting comfortably in no acute distress. Anicteric sclera Neck no JVD. CVS regular rate rhythm, systolic murmur Respiratory lungs clear to auscultation, no respiratory distress. Gastrointestinal abdomen soft, non tender, bowel sounds audible. Extremities no edema. Neuro non focal Skin no rash DS: Data Data Completed and Pending Labs on day of discharge: Laboratory Results - last 24 hr 10/05/24 06:15 WBC 9.4 RBC 5.55 H Hgb 15.5 Hct 45.1 MCV 81.3 MCH 27.9 MCHC 34.4 RDW 14.0 Plt Count 239 MPV 10.6 Absolute Nucleated RBC 0.000 Nucleated RBC % (auto) 0.0 Sodium 142 Potassium 4.6 Chloride 111 H Carbon Dioxide 24 Anion Gap 12 BUN 13 Creatinine 0.73 Estim Creat Clear Calc 62.2 Estimated GFR > 60 Random Glucose 91 Calcium 9.7 Discharge Plan Discharge Anticipated Discharge Date/Time: 10/05/24 12:53 Patient Disposition: Home, Self-Care Discharge Diagnosis: Severe Abnormal EKG Hypertension Referrals: Elidia Shepherd MD [Primary Care Provider] - 1 Week Discharge Medications: Continued losartan 50 mg tablet 50 mg PO DAILY prednisone 5 mg tablet 5 mg PO BID magnesium oxide 400 mg (241.3 mg magnesium) Tablet 400 mg PO DAILY [employer]-3 Fish Oil 300-1,000 mg Capsule 1 cap PO DAILY calcium carbonate-vitamin D3 [Oyster Shell Calcium-Vit D3] 500 mg-5 mcg (200 unit) tablet 1 tab PO BID amlodipine 5 mg tablet 5 mg PO DAILY (DME) Wrist Brace Misc See Rx Instructions miscellaneous .MEDSUPPLY Qty: 2 0RF Rx Instructions: use on the wrists at night (DME) Wrist Brace Misc See Rx Instructions miscellaneous .MEDSUPPLY Qty: 2 0RF Rx Instructions: As directed (DME) SOUTH Knee Brace Misc See Rx Instructions .Route Qty: 2 0RF Rx Instructions: As directed Discharge Orders: Discharge Order (Routine); Ordered 10/05/24 Ordered By: Jeremias Henderson Diet: Advance to usual diet Activity on Discharge: As tolerated Stand Alone Forms: Patient Portal Discharge page Print Language: Monegasque Care Plan Goals: Severe aortic stenosis follow up with Dr. Bagley appointment will be made by Dr. Orellana Health Concerns: Continue all home medications as before Plan of Treatment: Follow-up with primary care physician, and with coin machine operator Dr. Orellana he will arrange for outpatient follow-up with Dr. Bagley for aortic stenosis treatment Assessment: As above Discharge Date/Time: 10/05/24 14:01
--- NOTE | 2024-10-05 12:59 | MHC.CM.PN ---
PT MEDICALLY CLEARED FOR DC HOME, CM MET W/PT VIA ROVING CHANGER AND PT WILL DC HOME VIA SHUTTLE AT 2PM, NSG AWARE.
== END 2024-10-05 14:01 | disposition home or self-care (01) ==
LOC: HO.ED 20:56 → HO.EDOVER 10-04 06:50 → HO.IMC 10-05 09:24
PROVIDERS: Internal Medicine; Admitting Provider Physician Assistant; Emergency Provider Emergency Medicine; PCP Family Medicine; Visit Provider Hospitalist
DX: I35.0 Nonrheumatic aortic (valve) stenosis (principal); R94.31 Abnormal electrocardiogram [ECG] [EKG]; I10 Essential (primary) hypertension; R11.2 Nausea with vomiting, unspecified; R53.1 Weakness; F20.9 Schizophrenia, unspecified; R42 Dizziness and giddiness; M05.9 Rheumatoid arthritis with rheumatoid factor, unspecified; Z79.52 Long term (current) use of systemic steroids; Z03.818 Encounter for observation for suspected exposure to other biological agents ruled out
CPT/HCPCS: 0241U; 36415; 80048; 80076; 81003; 83690; 83735; 84484; 85025; 85027; 85379; 93005; 93306; 96361; 96372; 96374; 99222; 99285; J1650; J2405

== ENCOUNTER 2024-10-03 23:18 | Outpatient (BNV) | payer OTHER, SELFPAY | END 2024-10-05 07:00 | PROVIDERS: Admitting Provider Physician Assistant; Emergency Provider Emergency Medicine; PCP Family Medicine; Visit Provider Internal Medicine | DX: I35.0 Nonrheumatic aortic (valve) stenosis (principal); I35.8 Other nonrheumatic aortic valve disorders; I34.81 Nonrheumatic mitral (valve) annulus calcification | CPT/HCPCS: 93306 ==

== ENCOUNTER → 2024-10-03 23:18 | Outpatient (BNV) | payer OTHER, SELFPAY | PROVIDERS: Admitting Provider Physician Assistant; Emergency Provider Emergency Medicine; PCP Family Medicine; Visit Provider Internal Medicine | DX: I35.0 Nonrheumatic aortic (valve) stenosis (principal); R94.31 Abnormal electrocardiogram [ECG] [EKG] | CPT/HCPCS: 99232 ==

== ENCOUNTER → 2024-10-03 23:18 | Outpatient (BNV) | payer OTHER, SELFPAY | PROVIDERS: Admitting Provider Physician Assistant; Emergency Provider Emergency Medicine; PCP Family Medicine; Visit Provider Hospitalist | DX: I35.0 Nonrheumatic aortic (valve) stenosis (principal); F20.9 Schizophrenia, unspecified; R41.89 Other symptoms and signs involving cognitive functions and awareness | CPT/HCPCS: 99233; 99239 ==

== ENCOUNTER → 2024-10-03 23:18 | Outpatient (BNV) | payer OTHER, SELFPAY | PROVIDERS: Admitting Provider Physician Assistant; Emergency Provider Emergency Medicine; PCP Family Medicine; Visit Provider Psychiatry & Neurology Psychiatry | DX: F20.9 Schizophrenia, unspecified (principal); I35.0 Nonrheumatic aortic (valve) stenosis; R41.89 Other symptoms and signs involving cognitive functions and awareness | CPT/HCPCS: 90792 ==

== ENCOUNTER 2024-10-26 10:01 | Outpatient (AMB) | payer OTHER, SELFPAY ==
--- NOTE | 2024-10-26 10:04 | MHC.OFFVIS ---
Vital Signs 10/26/24 10:07 Height 5 ft 6 in Weight 123 lb 7.342 oz BMI 19.9 BP 124/68 Blood Pressure Location Lt brachial Position Sitting Pulse 78 Pulse Source Pulse Oximeter Intake Visit Reasons: TAVR Consult HS pt Kitchen And Bath Designer Required: Yes Kitchen And Bath Designer Name: ALVERTO [id number] Allergies No Known Allergies Allergy (Verified 10/03/24 17:08) Medication List - Last Reconciled 10/26/24 by Rell Venegas MD arm brace (Wrist Brace) use on the wrists at night arm brace (Wrist Brace) As directed leg brace (SOUTH Knee Brace) As directed losartan 50 mg PO DAILY prednisone 5 mg PO BID HPI Comments Details: [age] year female from [place] who is referred to us for severe aortic valve stenosis. Recently she presented to [facility] September of 2024 for elevated blood pressure, vomiting dizziness and lethargy. She had diffuse T-wave inversion in the precordial leads which were new compared to previous ECG. Echocardiography showed normal left ventricular systolic function without any regional wall motion abnormalities, low normal right ventricular function, severe aortic valve stenosis with peak velocity 5.54 m/sec, peak gradient of 123 mm Hg and mean gradient of 74 mm Hg. Aortic valve area calculated as 0.47 cm2. ECG changes were thought to be related to left ventricular hypertrophy and severe aortic valve stenosis. She has psych issues with history of schizophrenia. She has anxiety. She does not like talking about her psych issues and was tearful the moment I started talking about that. She is denying any chest pain or shortness of breath in her day-to-day life. No syncope in the past. She has known history of rheumatoid arthritis and has been using prednisone 5 mg twice a day. She is saying that she gets prednisone and takes it on her own from [place]. [facility] Medical History (Updated 10/26/24 @ 12:17 by Rell Venegas MD) Cognitive impairment Current chronic use of systemic steroids Chronic mental illness Schizophrenia Response to cell-mediated gamma interferon antigen without active TB exterminator helper termite use of drug Seropositive rheumatoid arthritis Anxiety Hypertension Surgical History No pertinent past surgical history Family History Father No problems noted. Mother No problems noted. Social History Household Members: None Housing: Apartment Are you a primary primary care nurse to a significant other at home: No Do you presently have visiting nurse or other home services: Yes 75 years or older and lives alone: No Alcohol intake: former Patient Tobacco Use Status: Former Tobacco user e-Cigarette/Vaping Use: Never Used service: No Current occupational status: disabled Review of Systems Const Denies weakness ENT Denies dizziness Card Denies chest pain, Denies chest pain with activity, Denies syncope, Denies rapid heart rate, Denies pedal edema, Denies edema, Denies leg edema, Denies lightheadedness, Denies palpitations, Denies dyspnea, Denies dyspnea on exertion and Denies orthopnea Resp Denies cough, Denies dyspnea and Denies dyspnea on exertion GI Denies hematochezia and Denies change in stool character Musc Denies abnormal gait, Denies muscle cramps, Denies muscle weakness, Denies numbness, Denies radiating pain into limb and Denies tingling Neuro Denies abnormal gait, Denies dizziness, Denies syncope, Denies numbness, Denies tingling and Denies weakness Endo Denies palpitations Physical Exam Vital Signs: Last Vital Signs Pulse 78 10/26/24 10:07 BP 124/68 10/26/24 10:07 BMI result Body Mass Index 19.9 GENERAL APPEARANCE: in no acute distress, pleasant. NECK: No jugular venous distention. Systolic murmur radiating to the carotids. SKIN: no suspicious lesions, warm and dry. HEART: Ejection systolic murmur aortic area with absent 2nd heart sound. LUNGS: clear to auscultation bilaterally. ABDOMEN: soft, nontender. EXTREMITIES: no edema. PERIPHERAL PULSES: equal. NEUROLOGIC: No gross deficits, AAO X 3 Assessment & Plan Assessment & Plan (1) Aortic stenosis, severe: Code(s): I35.0 - Nonrheumatic aortic (valve) stenosis Category: Medical Plan 74-year-old female presenting for severe aortic valve stenosis. She has background of rheumatoid arthritis and schizophrenia. Psychiatry has seen her and she has capacity to make decisions. We discussed in detail about aortic valve stenosis and potential consequences. We discussed in detail about different options and the pros and cons. After discussion the patient has decided to proceed with transcatheter aortic valve replacement. I have quoted her risk of bleeding, vascular injury, stroke, and pacemaker placement. She understands all the risks and benefits. We will arrange a TAVR protocol CT scan for her. She will be seen by Cardiothoracic surgery in consultation. After that we will discuss in heart team. Appears she has been using prednisone for some time now. She is saying she only uses it when she has joint pains. Blood pressure is well controlled on losartan currently. Thank you for allowing me to participate in the care of your patient. Please feel free to contact me if you have any questions. Coding Level of Care Code New Pt Level 5 (46006) Diagnoses Aortic stenosis, severe I35.0
[2024-10-26 10:07] VITALS: BP 124/68; PULSE 78; BMI 19.9
== END 2024-10-26 11:03 | disposition home or self-care (01) ==
LOC: HO.HCS 10:01
PROVIDERS: PCP Family Medicine; Visit Provider Internal Medicine Cardiovascular Disease
DX: I35.0 Nonrheumatic aortic (valve) stenosis (principal); Z79.52 Long term (current) use of systemic steroids
CPT/HCPCS: 99214

== ENCOUNTER → 2024-10-26 10:01 | Outpatient (BNVA) | payer OTHER, SELFPAY | PROVIDERS: PCP Family Medicine; Visit Provider Internal Medicine Cardiovascular Disease | DX: I35.0 Nonrheumatic aortic (valve) stenosis (principal) | CPT/HCPCS: 99212 ==

== ENCOUNTER 2024-12-28 11:04 | Outpatient (REF) | payer OTHER, SELFPAY ==
--- NOTE | ~2024-12-28 | XR_ITS ---
EXAMINATION: XR CHEST CLINICAL INFORMATION: ppd positive COMPARISON: November 21, 2021. TECHNIQUE: 2 views of the chest were obtained. FINDINGS: No consolidation, pleural effusion or pneumothorax. Increased AP diameter of the thorax. Cardiomediastinal silhouette demonstrates a round cardiac apex. Calcified plaque aortic arch. Multilevel thoracic and upper lumbar stenosis. Degenerative changes in the acromioclavicular joints. Calcification in the right supraspinatus tendon region. XR/XR chest 2V IMPRESSION: No acute airspace disease. 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 Tendinosis versus tendinopathy, right supraspinatus. Electronically signed by: Prince Velásquez MD 12/28/2024 01:09 PM EDT
--- OUTSIDE RECORDS SUMMARY | 2024-12-28 11:52 | XMS_ITS | Encounter Summary ---
Author Organization [employer] Address [address] [facility] 7t [place] [address] Care Team Providers Care Soft Boarder Name Role Phone Elidia Shepherd MD Primary Care Provider [phone] Elliott Orellana MD Unavailable [phone] Rell Venegas Unavailable Encounter Details Date Type Department Care Team (Latest Contact Info) Description 12/28/2024 11:00 AM EDT Office Visit [facility] MED[facility]INE [address] [place] [address] Elidia Shepherd MD [address] [place] [address] Dyslipidemia (Primary Dx); Hypertension, unspecified type; Severe aortic valve stenosis; Seropositive rheumatoid arthritis (CMS/HCC); Colon cancer screening; Breast cancer screening by mammogram; Complex care coordination; Dietary counseling; Exercise counseling; Overweight; Paranoid schizophrenia (CMS/HCC); Positive TB test Social History Tobacco Use Types Packs/Day Years Used Date Smoking Tobacco: Former Cigarettes Passive Smoke Exposure: Never Smokeless Tobacco: Never Alcohol Answer Date Recorded Frequency of Alcohol Consumption Not on file 06/15/2024 Average Number of Drinks Not on file 024 Frequency of Binge Drinking Not on file 11/2023 Score 0 06/15/2024 Depression Answer Date Recorded Patient Health Questionnaire-9 Score 20 12/28/2024 Patient Health Questionnaire-9 Score 20 12/28/2024 Last PHQ-9: Questionnaire Data Not on file 0 12/28/2024 Housing Stability Answer Date Recorded What is [...] Answer Date Recorded Patient Health Questionnaire-2 Score 5 12/28/2024 Comments Unknown Sex and Gender Information Value Date Recorded Sex Assigned at Female 06/11/2022 10:16 AM EDT Legal Sex Female 10:16 AM EDT Gender Identity Female 06/11/2022 10:16 AM EDT Sexual Orientation Straight 06/11/2022 10 :16 AM EDT documented as of this encounter Last Filed Vital Signs Vital Sign Reading Time Taken Comments Blood Pressure 148/87 12/28/2024 10:29 AM EDT Pulse 90 12/28/2024 10:29 AM EDT Temperature 36.1 ??C (96.9 ??F) 12/28/2024 10:29 AM E DT Respiratory Rate 18 12/28/2024 10:29 AM EDT Oxygen Saturation 99% 12/28/2024 10:29 AM EDT Inhaled Oxygen Concentration - - Weight 57.2 kg (126 lb) 12/28/2024 10:29 AM EDT Height 149.9 cm (4' 11 ) 12/28/2024 10:29 AM EDT Body Mass Index 25.45 12/28/2024 10:29 AM EDT documented in this encounter Functional Status * Over the past 2 weeks, how often have you been bothered by any of the following problems? Question Answer Date of Assessment Author Patient Health Questionnaire -2 Score 5 12/28/2024 11:07 AM EDT Lili Preston MA * Little interest or pleasure in doing things Answer Date of Assessment Author Nearly every day 12/28/2024 11:07 AM Lili Paiz MA * Feeling down, depressed, or hopeless Answer Date of Assessment Author More than half the days 12/28/2024 11:07 AM Lili Paiz MA * Trouble falling or staying asleep, or sleeping too much Answer Date of Assessment Author Nearly every day 12/28/2024 11:07 AM Lili Paiz MA * Feeling tired or having little energy Answer Date of Assessment Author More than half the days 12/28/2024 11:07 AM Lili Paiz MA * Poor appetite or overeating Answer Date of Assessment Author More than half the days 12/28/2024 11:07 AM Lili Paiz MA * Feeling bad about yourself - or that you are a failure or have let yourself or your family down Answer Date of Assessment Author Nearly every day 12/28/2024 11:07 AM Lili Paiz MA * Trouble concentrating on things, such as reading the newspaper or watching television Answer Date of Assessment Author Nearly every day 12/28/2024 11:07 AM Lili Paiz MA * Moving or speaking so slowly that other people could have noticed? Or the opposite - being so fidgety or restless that you have been moving around a lot more than usual. Answer Date of Assessment Author Several days 12/28/2024 11:07 AM Lili Paiz MA * Thoughts that you would be better off or hurting yourself in some way Answer Date of Assessment Author Several days 12/28/2024 11:07 AM Lili Paiz MA * Patient Health Questionnaire-9 Score Answer Date of Assessment Author 12/28/2024 11:07 AM Lili Paiz MA * How difficult have these problems made it for you to do your work, take care of things at home, or get along with other people? Answer Date of Assessment Author Very difficult 12/28/2024 11:07 AM Lili Paiz MA * Over the last 2 weeks, how often have you been bothered by any of the following problems? Question Answer Date of Assessment Author Feeling nervous, anxious, or on edge 3 12/28/2024 11:08 AM Lili Paiz MA Not being able to stop or co ntrol worrying 1 12/28/2024 11:08 AM Lili Paiz MA Worrying too much about diff erent things 3 12/28/2024 11:08 AM Lili Paiz MA Trouble relaxing 3 12/28/2024 11:08 AM Lili Paiz MA Being so restless that it is hard to sit still 3 12/28/2024 11:08 AM Lili Paiz MA Becoming easily annoyed or irritable 3 12/28/2024 11:08 AM Lili Paiz MA Feeling afraid as if somethi ng awful might happen 3 12/28/2024 11:08 AM Lili Paiz MA LAZARUS-7 Total Score 19 12/28/2024 11:08 AM Lili Paiz MA documented as of this encounter Plan of Treatment Scheduled Orders Name Type Priority Associated Diagnoses Orde r Schedule XR Chest 2 Views Imaging Routine Positive TB test Expected: 12/28/2024, Expires: 12/28/2025 Hepatic Function Panel Lab Routine Severe aortic valve stenosis Seropositive rheumatoid arthritis (CMS/HCC) Expected: 12/28/2024, Expires: 12/28/2025 Magnesium Lab Routine Severe aortic valve stenosis Seropositive rheumatoid arthritis (CMS/HCC) Expected: 12/28/2024, Expires: 12/28/2025 Lipid Panel, Standard Lab Routine Dyslipidemia Expected: 12/28/2024, Expires: 12/28/2025 Basic Metabolic Panel Lab Routine Severe aortic valve stenosis Seropositive rheumatoid arthritis (CMS/HCC) Expected: 12/28/2024, Expires: 12/28/2025 TSH with Reflex to Free T4 Lab Routine Severe aortic valve stenosis Seropositive rheumatoid arthritis (CMS/HCC) Expected: 12/28/2024 (Approximate), Expires: 12/28/2025 CBC auto differential Lab Routine Severe aortic valve stenosis Seropositive rheumatoid arthritis (CMS/HCC) Expected: 12/28/2024, Expires: 12/28/2025 Vitamin D, 25-Hydroxy, Total, Immunoassay Lab Routine Severe aortic valve stenosis Seropositive rheumatoid arthritis ([facility]/HCC) Expected: 12/28/2024 (Approximate), Expires: 12/28/2025 documented as of this encounter Visit Diagnoses Diagnosis Dyslipidemia- Primary Other and unspecified hyperlipidemia Hypertension, unspecified type Severe aortic valve stenosis Aortic valve disorders Seropositive rheumatoid arthritis ([facility]/HCC) Colon cancer screening Special screening for malignant neoplasms, colon Breast cancer screening by mammogram Complex care coordination Dietary counseling Dietary surveillance and counseling Exercise counseling Overweight Paranoid schizophrenia ([facility]) Paranoid schizophrenia, unspecified condition Positive TB test documented in this encounter Additional Health Concerns Assessment Noted Time PHQ-9 Depression Total Score: 20 025 11:07 AM EDT documented as of this encounter Care Teams Soft Boarder Relationship Specialty Start Date End Date Elidia Shepherd MD [address] [place] [address] PCP - General Family Medicine 08/12/18 Elliott Orellana MD [address] [place] [address] Cardiology 10/07/24 Rell Venegas [address] [place] [address] Cardiology 10/26/24 documented as of this encounter
--- OUTSIDE RECORDS SUMMARY | 2024-12-28 11:52 | XMS_ITS | Encounter Summary ---
Author Organization [employer] Address [address] [facility] 7t [place] [address] Care Team Providers Care Store Loss Prevention Manager Name Role Phone Elidia Shepherd MD Primary Care Provider [phone] Elliott Orellana MD Unavailable [phone] Rell Venegas Unavailable Reason for Visit * Reason Onset Date Comments Request For Order(s) 05/02/2023 Encounter Details Date Type Department Care Team (Late st Contact Info) Description 05/02/[address] [facility] MEDICINE [address] [place], [place] [phone] Elidia Shepherd MD [address] [place], [place] [phone] Request For Order(s) Social History Tobacco Use [...] Miscellaneous Notes * Telephone Encounter - Sharda Pascual - 05/02/2023 11:49 AM EDT [facility] requesting VNA orders as well as a dexa to be ordered by PCP due to a fall 04/30. Please contact ashlee at [phone] ext [phone] documented in this encounter Plan of Treatment Not on file documented as of this encounter Visit Diagnoses Not on filedocumented in this encounter Additional Health Concerns Assessment Noted Time PHQ-9 Depression Total Score: 0 11/22/19 23 9:33 AM EDT documented as of this encounter Care Teams Store Loss Prevention Manager Relationship Specialty Start Date End Date Elidia Shepherd MD [address] [place] [address] PCP - General Family Medicine 08/12/18 Elliott Orellana MD [address] [place] [address] Cardiology 10/07/24 Rell Venegas [address] [place] [address] Cardiology 10/26/24 documented as of this encounter
--- OUTSIDE RECORDS SUMMARY | 2024-12-28 11:52 | XMS_ITS | Data Portability ---
Author Organization [facility] [facility] [place] [facility] - [facility] Address [address] [place] [phone] Care Team Providers Care Cloth Bale Header Name Role Phone CHADLIOR ANGUIANO Referring Provider Assessment Encounter Date Assessment Date Assessment LastModified by Organization Details LastModified Time 05/03/2023 05/03/2023 I provided real -time medical direction via phone for this encounter, and was available for additional phone based assistance as needed. I have reviewed and agree with the Assessment and Plan as documented by the Fe[employer]. Patient given the opportunity to ask questions. She requested a friend come over because she was so nervous-Slovak language line junior high school teacher on for visit, questions and explanations Advised to call our service that she feels another visit, the close follow-up with PCP is warranted to call tomorrow -see if she can move up her May for his appointment. The medic wrote CRC's phone number down for the patient 1- [phone]; the patient could likely be read back the numbers on the paper I advised via the junior high school teacher who also spoke with her friend- if develops CP/severe SOB/turning blue/uncontrolle d n/v/ syncope/ hi fever to call 911-she verbalized understanding of instructions [email or web address] Not available 05/04/2023 02:15:29 Plan of Treatment Reminders Order Date Submit Date Provider Last Modified By Organization Details Last Modified Time Details Appointments None recorded. Lab BMP, serum or plasma 2022 [email or web address], [id number] 3 02:19:04 rapid SARS CoV 2 Ag, QL IA, respiratory specimen 2022 [address], [id number] 3 09:05:36 Referral None recorded. Procedures None recorded. Surgeries None recorded. Imaging None recorded. Medication Orders sodium chloride 0.9 % intravenous solution 2022 023 [email or web address] 0 Not available 02:19:04 Patient TargetsNo targets recorded. Patient Instructions Encounter Date Encounter Id Patient Instructions Last Modified By Organization Details Last Modified Time 05/03/2023 [id number] orthostatic vitals* - see vs Not available 05/04/2023 02:19:04 Reason for Referral None Reported. Results Created Date Observation Date Name Description Value Unit Range Abnormal Flag Note LastModifiedBy Organization Detail LastModifiedTime 05/04/2005/04/2023 rapid SARS CoV 2 Ag, QL IA, respi rator y speci men rapid SARS CoV 2 Ag, QL IA, respiratory specimen negati ve Not Available Main - [address], [address] [place] [address] 05/03/2023 14:19:53 05/04/2005/04/2023 BMP, serum or plasm a BUN 16 Not Available Main - Ins [address], [address] [place] [address] 05/03/2023 14:18:44 05/04/2005/04/2023 BMP, serum or plasm a Ca Ionize d calciu m 1.3 Not Available [facility] - [address], [address] [place] [address] 05/03/2023 14:18:44 05/04/2005/04/2023 BMP, serum or plasm a CI- 105 Not Available Main - Ins [address], [address] [place] [address] 05/03/2023 14:18:44 05/04/2005/04/2023 BMP, serum or plasm a CRE 1 Not Available Main - Ins [address], [address] [place] [address] 05/03/2023 14:18:44 05/04/2005/04/2023 BMP, serum or plasm a GLU 109 Not Available Main - Ins [address], [address] [place] [address] 05/03/2023 14:18:44 05/04/20 23 05/04/2023 BMP, serum or plasm a K+ 3.6 Not Available Main - Ins [address], [id number] 05/03/2023 14:18:44 05/04/2005/04/2023 BMP, serum or plasm a Na+ 143 Not Available Main - Ins [address], [address] 05/03/2023 14:18:44 05/04/2005/04/2023 BMP, serum or plasm a tCO2 26 Not Available [facility] - Ins [address], [address] 05/03/2023 14:18:44 Result Notes None recorded. Medical [...] Address Organization Details Last Updated DateTime 05/03/2023 60310.9 g 21.6 kg/m2 May Solomon MD [address] [place] [address],[address], [place], [address], [facility] [employer] [facility] 05/03/2023 14:08:50 Social History None recorded. Functional Status None recorded. Mental Status None recorded. Family History Nothing Reported. Medical History No medical history recorded. Gynecological HistoryNo gynecological history recorded. Obstetrics History GPAL:G 0 P 0 0 0 0 Past Encounters Encounter ID Performer Location Encounter Start Date Encounter Closed Date Diagnosis/Indication Diagnosis SNOMED-CT Code Diagnosis ICD10 Code Diagnosis Note [id number] May Solomon MD [address] [address] 05/03/2023 14:07:49 12/11/2024 13:05:22 Accidental fall [id number] Patient orthostati c so ordered BMP/COVID [...] Recorded Advance Directives Directive None Recorded Payers Insurance Date Sequence Insurance Name Policy Number Policy Yoder Covered Member ID Yoder Member ID Guarantor Name 12/11/2024 1 [facility] - DOS ON OR AFTER 2022 - DUAL ELIGIBLE - HALFWAY OPTIONS AND ONE CARE (MEDICARE REPLACEMENT/AD VANTAGE - HMO) Lotus Bagley [id number] Lotus Bagley Notes Date Note Type Note Provider Name and Address Organization Details Recorded Time 05/03/2023 text/html HPI: Member reported high BP this AM and feeling weak and dizzy, had a fall 4 days ago, has bruising on face, arms and legs, stated started taking an old antibiotic to help with facial swelling, in pain and not given anything at [facility]. Has appt with her PCP on 05/15 at [facility]. Member is 72, female, illiterate, HTN, panic attacks, L leg pain, carpal tunnel syndrome, arthritis, memory impairment, unsteady gait, frequent falls, paranoid schizophrenia, incontinence and RA with severe pains as baseline. Member is due for TAVR for severe aortic stenosis with Dr. Orellana at [facility], and has been hesitant about getting the Cardiac Cath with procedure for fear of recovery. Reviewing further with PCP and Parts Sales Associate to make a decision. Stated at times dizzy, but not today, stated she fell due tripping outside on a step. ................... ................... ................... ................... ................... ................... ................... ........ CRC Nursing Assessment: Comments: Reviewed - Diane CARTWRIGHT: Patient exceedingly anxious regarding her blood pressure which was normal on EMS arrival. Discharge paperwork from [facility] reports CT scans(pleural) were negative but [...] neck pain on movement. She went to [facility] the day after her ER visit for her neck and they are supposed to be ordering her a neck brace.Patient has no COVID symptoms but is anxious that she was exposed to COVID while in the ER................. ................... ................... ................... ................... ................... ................... .......... [employer] Note From Anaid Patricio: Sent to a call for a pt complaining of hypertension, weakness, dizziness, and pain after a fall. [employer] arrives on scene,junior high school teacher line used during visit as pt's primary language is Slovak. Pt is alert and oriented to person, [...] 4 days ago and was evaluated in [facility] ED. D/C paperwork states pt's CT scans (not specified) were normal, with no broken bones. Pt was discharged with script for Acetaminophen and Neosporin (for facial abrasions). Pt states she had neck pain after the fall and went to [facility] on 05/01. Pt states she is waiting for a neck brace prescribed by [facility]. Pt has been taking Acetaminophen and Ibuprofen as prescribed. Pt states she took some Amoxicillin 500mg capsules that she was prescribed in the past because she thought it would help with swelling. Pt unsure how many she has taken, but states at least one today. Pt advised she should stop taking Amoxicillin. [facility] consulted and orders orthostatics. (supine)BP:139/87, P:74, (standing) BP:113/78, P:86; [facility] orders POC bloodwork and Normal Saline 500ml [...] Results for Istat Chem 8+: uploaded to [employer]. Rapid covid test: neg; Normal Saline 500ml IV administered, and pt states she is feeling better. Lung sounds: clear bilaterally; (standing) BP:129/87, P:81; [facility]/junior high school teacher advise pt her blood pressure is normal. Pt is advised covid test:neg; Pt is given [employer] phone number for follow up. Pt advised to continue using Neosporin, Tylenol, and Ibuprofen as prescribed. Red flags discussed. Pt is advised to keep upcoming appt with PCP (possibly in May). Pt has no further questions. ................... ................... ................... ................... ................... ................... ................... ........ Disposition: Fulfilled May Solomon MD [address] [place] [address],[address], [place], [address], [facility] 05/04/2023 20:32:50 OBGyn Episode No OBEpisode recorded.
--- OUTSIDE RECORDS SUMMARY | 2024-12-28 11:52 | XMS_ITS | Encounter Summary ---
Author Organization [employer] Address [address] [facility] 7t [place] [address] Care Team Providers Care Procedural Nurse Name Role Phone Elidia Shepherd MD Primary Care Provider [phone] Elliott Orellana MD Unavailable [phone] Rell Venegas Unavailable Reason for Visit * Reason Comments Med Refill Encounter Details Date Type Department Care Team (Late st Contact Info) Description 05/21/2023 Refill [facility] [address] [place], [place] [phone] Eric Nair MD [address] [place] [address] Social History Tobacco Use Types Packs/Day Years [...] as of this encounter Plan of Treatment Not on file documented as of this encounter Visit Diagnoses Not on filedocumented in this encounter Additional Health Concerns Assessment Noted Time PHQ-9 Depression Total Score: 0 11/22/19 23 9:33 AM EDT documented as of this encounter Care Teams Procedural Nurse Relationship Specialty Start Date End Date Elidia Shepherd MD [address] [place] [address] PCP - General Family Medicine 08/12/18 Elliott Orellana MD [address] [place] [address] Cardiology 10/07/24 Rell Venegas [address] [place] [address] Cardiology 10/26/24 documented as of this encounter
--- OUTSIDE RECORDS SUMMARY | 2024-12-28 11:52 | XMS_ITS | Encounter Summary ---
Author Organization [employer] Address [address] [facility] 7t [place] [address] Care Team Providers Care Air Press Operator Name Role Phone Elidia Shepherd MD Primary Care Provider [phone] Elliott Orellana MD Unavailable [phone] Rell Venegas Unavailable Encounter Details Date Type Department Care Team (Latest Contact Info) Description 12/28/2024 Travel Social History Tobacco Use Types Packs/Day [...] AM EDT documented as of this encounter Functional Status * Over the past 2 weeks, how often have you been bothered by any of the following problems? Question Answer Date of Assessment Author Patient Health Questionnaire -2 Score 5 12/28/2024 11:07 AM Lili Paiz MA * Little interest or pleasure in [...] Author Nearly every day 12/28/2024 11:07 AM Liil Paiz MA * Moving or speaking so [...] AM Lili Paiz MA LAZARUS-7 Total Score 12/28/2024 11:08 AM Lili Paiz MA documented as of this encounter Plan of Treatment Not on file documented as of this encounter Visit Diagnoses Not on filedocumented in this encounter Additional Health Concerns Assessment Noted Time PHQ-9 Depression Total Score: 025 11:07 AM EDT documented as of this encounter Care Teams Air Press Operator Relationship Specialty Start Date End Date Elidia Shepherd MD [address] [place] [address] PCP - General Family Medicine 08/12/18 Elliott Orellana MD [address] [place] [address] Cardiology 10/07/24 Rell Venegas [address] [place] [address] Cardiology 10/26/24 documented as of this encounter
--- OUTSIDE RECORDS SUMMARY | 2024-12-28 11:52 | XMS_ITS | Encounter Summary ---
Author Organization [employer] Address [address] [facility] 7t [place] [address] Care Team Providers Care Grocery Clerk Marking Name Role Phone Elidia Shepherd MD Primary Care Provider [phone] Elliott Orellana MD Unavailable [phone] Rell Venegas Unavailable Reason for Visit * Reason Onset Date Comments CHART PREP 12/25/2024 Encounter Details Date Type Department Care Team (Late st Contact Info) Description 12/25/[address] [facility] MEDICINE [address] [place] [address] Elidia Shepherd MD [address] [place], [place] [phone] CHART PREP Social History Tobacco Use Types Packs/Day Years [...] the past 12 months, has t he [employer], gas, oil or water [employer] threatened to shut off services in your [...] encounter Miscellaneous Notes * Telephone Encounter - Ton Gill MA - 12/25/2024 10:34 AM EDT Chart Prep Labs: not applicable Images: not done mammo no show 09/03/24 Referrals: not applicable Vaccines due: not applicable Screenings: colonoscopy and mammogram Overdue care gaps: SBIRT, SDOH, PHQ-9, LAZARUS-7, and Oral health screening documented in this encounter Plan of Treatment Not on file documented as of this encounter Visit Diagnoses Not on filedocumented in this encounter Additional Health Concerns Assessment Noted Time PHQ-9 Depression Total Score: 5 01/16/20 24 10:10 AM EDT documented as of this encounter Care Teams Grocery Clerk Marking Relationship Specialty Start Date End Date Elidia Shepherd MD [address] [place] [address] PCP - General Family Medicine 08/12/18 Elliott Orellana MD [address] [place] [address] [address] [place] [address] Cardiology 10/07/24 Rell Venegas [address] Floor [place] [address] Cardiology 10/26/24 documented as of this encounter
--- OUTSIDE RECORDS SUMMARY | 2024-12-28 11:52 | XMS_ITS | Encounter Summary ---
Author Organization [email or web address] Address [address] [facility] [address] [place] [address] Care Team Providers Care Surgical Corsetier Name Role Phone Elidia Shepherd MD Primary Care Provider [phone] Elliott Orellana MD Unavailable [phone] Rell Venegas Unavailable Encounter Details Date Type Department Care Team (Late st Contact Info) Description 09/18/2022 Abstract [facility] [address] [place] [address] Elidia Shepherd MD [address] [place] [address] Social History Tobacco Use Types Packs/Day Years [...] on file documented as of this encounter Procedures Procedure Name Priority Date/Time Associated Diagnosis Comments MAMMOGRAPHY Routine 05/07/2017 PAP SMEAR Routine 09/03/2014 12:00 AM EST documented in this encounter Results * Mammography (05/07/2017) Mammogram BIRADS 1 Anatomical Region Laterality Modality Other Historical Provider HEALTH MAINTENANCE Final Result * Pap Smear (09/03/2014 12:00 AM EST) Swab us Historical Provider LAB CYTOLOGY ORDERABLES F inal Result IMAGING documented in this encounter Visit Diagnoses Not on filedocumented in this encounter Care Teams Surgical Corsetier Relationship Specialty Start Date End Date Elidia Shepherd MD [address] [place] [address] [phone] PCP - General Family Medicine 08/12/18 Elliott Orellana MD [address] [place] [address] [phone] Cardiology 10/07/24 Rell Venegas [address] [place] [address] [phone] Cardiology 10/26/24 documented as of this encounter
--- OUTSIDE RECORDS SUMMARY | 2024-12-28 11:52 | XMS_ITS | Encounter Summary ---
Author Organization [employer] Address [address] [facility] [address] [place] [address] Care Team Providers Care Plant Sprayer Name Role Phone Elidia Shepherd MD Primary Care Provider [phone]- [phone] Elliott Orellana MD Unavailable [phone] Rell Venegas Unavailable Encounter Details Date Type Department Care Team (Late st Contact Info) Description 03/07/2023 Orders Only [facility] MED[facility]INE [address] [place] [address] Elidia Shepherd MD [address] [place] [address] Social History Tobacco Use Types Packs/Day Years [...] documented as of this encounter Care Teams Plant Sprayer Relationship Specialty Start Date End Date Elidia Shepherd MD [address] [place] [id number] PCP - General Family Medicine 08/12/18 Elliott Orellana MD [address] [place] [address] Cardiology 10/07/24 Rell Venegas [address] [place] [address] Drive 3rd Floor [place], [place] [phone] Cardiology 10/26/24 documented as of this encounter
--- OUTSIDE RECORDS SUMMARY | 2024-12-28 11:52 | XMS_ITS | Encounter Summary ---
Author Organization [employer] Address [address] [facility] 7t [place] [address] Care Team Providers Care Merchandise Flow Manager Name Role Phone Elidia Shepherd MD Primary Care Provider [phone] Elliott Orellana MD Unavailable [phone] Rell Venegas Unavailable Encounter Details Date Type Department Care Team (Late st Contact Info) Description 11/22/2023 Orders Only [facility] MED[facility]INE [address] [place] [address] Elidia Shepherd MD [address] [place], [place] [phone] Social History Tobacco Use Types Packs/Day Years [...] documented as of this encounter Care Teams Merchandise Flow Manager Relationship Specialty Start Date End Date Elidia Shepherd MD [address] [place] [phone] PCP - General Family Medicine 08/12/18 Elliott Orellana MD [address] [place] [phone] Cardiology 10/07/24 Rell Venegas [address] [place] [phone] Cardiology 10/26/24 documented as of this encounter
--- OUTSIDE RECORDS SUMMARY | 2024-12-28 11:52 | XMS_ITS | Clinical Summary ---
Author Organization [employer] Address [address] [facility] [address] [place] [address] Care Team Providers Care Budget Coordinator Name Role Phone Elidia Shepherd MD Primary Care Provider [phone] Elliott Orellana MD Unavailable [phone] Rell Venegas Unavailable Allergies Active Allergy Reactions Criticality Noted Date Comments Meloxicam 12/28/2024 Medications Calcium Carb-Cholecalcif yen (Oyster Shell Calcium w/D) 500-5 MG-MCG tabletIndication s:Osteopenia, unspecified location Take 1 tablet by mouth 2 times daily. 180 tablet 3 06/15/20 24 Active amLODIPine (Norvasc) 5 MG tabletIndication s:Primary hypertension Take 1 tablet (5 mg) by mouth Once per day. 90 tablet 3 06/15/20 24 Active losartan (Cozaar) 50 MG tabletIndication s:Primary hypertension Take 1 tablet (50 mg) by mouth Once per day. 90 tablet 3 06/15/20 24 Active predniSONE 5 MG (48) tablet therapy packIndications: Seropositive rheumatoid arthritis (CMS/HCC) Take 5 mg by mouth if needed in the morning and at bedtime (joint pain). 60 each 12/29/19 25 Active meloxicam (Mobic) 7.5 MG tablet Take 1 tablet (7.5 mg) by mouth 2 times daily. 60 tablet 11 11/03/19 25 025 Discontinued predniSONE 5 MG (48) tablet therapy pack Take 5 mg by mouth if needed in the morning and at bedtime (joint pain). 60 each 11/14/19 25 025 Discontinued(Re order (will not trigger notification to Pharmacy)) Active Problems Problem Noted Date Diagnosed Date Mixed hyperlipidemia 10/09/2024 Urinary incontinence 06/16/2024 Overview (06/16/2024): Pt request medium pull-ups, referred again 06/15/24 Assessment & Plan (06/16/2024 5:53 AM EST): Pt request medium pull-ups, referred again 06/15/24 Breast cancer screening by mammogram 01/16/2024 Overview (06/15/2024): -order placed 05/15/2023, given pt the number to call and advised to follow-up 01/16/2024. -new order placed 06/15/24, FLOOR SCRAPER aware Assessment & Plan (06/16/2024 5:58 AM EST): -order placed 05/15/2023, given pt the number to call and advised to follow-up 01/16/2024. -new order placed 06/15/24, FLOOR SCRAPER aware Assessment & Plan (01/16/2024 10:41 AM EDT): -order placed 05/15/2023, given pt the number to call and advised to follow-up 01/16/2024. Colon cancer screening 09/18/2023 Overview (06/15/2024): -declined colonoscopy -cologuard order placed 05/2023, discussed with FLOOR SCRAPER how to obtain sample. -cologuard placed again 01/16/2024 ad again on 06/15/24, FLOOR SCRAPER aware and has video on how to obtain sample Assessment & Plan (06/16/2024 5:58 AM EST): -declined colonoscopy -cologuard order placed 05/2023, discussed with FLOOR SCRAPER how to obtain sample. -cologuard placed again 01/16/2024 ad again on 06/15/24, FLOOR SCRAPER aware and has video on how to obtain sample Assessment & Plan (01/16/2024 10:39 AM EDT): -declined colonoscopy -cologuard order placed 05/2023, discussed with FLOOR SCRAPER how to obtain sample. -cologuard placed again 01/16/2024 Cellulitis 05/11/2023 Other specified health status 05/08/2023 Overview (06/16/2024): -next physical exam due after 06/15/2025 -eye care recommended -dental home is [facility] -health care proxy filed 06/15/24 Assessment & Plan (06/16/2024 5:55 AM EST): -next physical exam due after 06/15/2025 -eye care recommended -dental home is [facility] -health care proxy filed 06/15/24 Assessment & Plan (01/16/2024 10:41 AM EDT): -next physical exam due after 05/15/2024 -eye care recommended -dental home is [facility] Assessment & Plan (05/15/2023 10:07 AM EDT): -next physical exam due after 05/15/2024 -eye care facilitated by -dental home is Complex care coordination 11/21/2022 Overview (06/15/2024): -New care team specialist, Tanvi, of [employer] [phone]. 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 care team Deyanira Becker [phone] [id number] -[facility] Geriatric Seam Rubbing Machine Operator Vi Drummond -Personal care: Homemaker services Call placed to [facility] with Deyanira Becker 11/21/2022 to discuss concerns about pts inability to understand severity of her condition and lack of follow through with cardiology and Tb clinic. Deyanira will assist with Tb clinic and cardiology. Placed VNA with [employer] for daily TB meds, cardiac teaching, mediation assistance. Spoke with Ceci, therapist who continues to work with pt to encourage medical compliance. Assessment & Plan (06/16/2024 5:57 AM EST): -New care team specialist, Tanvi, [facility] [phone]. 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 care team Deyanira Becker [phone] [id number] -[facility] Geriatric Seam Rubbing Machine Operator Vi Drummond -Personal care: Homemaker services Call placed to [facility] with Deyanira Becker 11/21/2022 to discuss concerns about pts inability to understand severity of her condition and lack of follow through with cardiology and Tb clinic. Deyanira will assist with Tb clinic and cardiology. Placed VNA with [employer] for daily TB meds, cardiac teaching, mediation assistance. Spoke with Ceci, therapist who continues to work with pt to encourage medical compliance. Assessment & Plan (01/16/2024 7:31 PM EDT): -FLOOR SCRAPER Tanvi, of [facility] [phone]. 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 care team Deyanira Becker [phone] [id number] -[facility] Geriatric Seam Rubbing Machine Operator iV Drummond -Personal care: Homemaker services Call placed to [facility] with Deyanira Becker 11/21/2022 to discuss concerns about pts inability to understand severity of her condition and lack of follow through with cardiology and Tb clinic. Deyanira will assist with Tb clinic and cardiology. Placed VNA with [employer] for daily TB meds, cardiac teaching, mediation assistance. Spoke with Ceci, therapist who continues to work with pt to encourage medical compliance. Assessment & Plan (05/15/2023 1:04 PM EDT): -Therapist Mara Coleman at [facility] [phone] -[facility] care team Deyanira Cline Becker [phone] [id number] -[facility] Geriatric Seam Rubbing Machine Operator Vi Drummond - Miranda Armijomariana Gundersondo [facility] [phone] Call placed to [facility] with Deyanira Becker 11/21/2022 to discuss concerns about pts inability to understand severity of her condition and lack of follow through with cardiology and Tb clinic. Deyanira will assist with Tb clinic and cardiology. I have placed VNA with [employer] for daily TB meds, cardiac teaching, mediation assistance Assessment & Plan (11/21/2022 10:44 AM EDT): -Therapist Mara Coleman at [facility] [phone] -[facility] care team Deyanira Becker [phone] [id number] -[facility] Geriatric Seam Rubbing Machine Operator Vi Drummond Call placed to [facility] with Deyanira Becker 11/21/2022 to discuss concerns about pts inability to understand severity of her condition and lack of follow through with cardiology and Tb clinic. Deyanira will assist with Tb clinic and cardiology. I will place VNA with [employer] for daily TB meds, cardiac teaching, mediation assistance Illiteracy 10/17/2022 [place]: positive 10/17/2022 Overview (05/15/2023): TB clinic NOS x 3- case closed Treated by [facility] rheumatology with spotty therapy with isoniazid. From [...] with complete of therapy despite extensive social services coordinator. Assessment & Plan (06/16/2024 5:54 AM EST): TB clinic NOS x 3- case closed Treated by [facility] rheumatology with spotty therapy with isoniazid. From 12/08/21 she picked up every other month. Was to be completed 02/09/23 Patient's fill history for isoniazid is as follows all for 30 day supplies: 12/08/21 02/20/22 03/28/22 04/24/22 09/10/22 11/01/22 She has not been able to comply with complete of therapy despite extensive social services coordinator. Assessment & Plan (01/16/2024 10:43 AM EDT): TB clinic NOS x 3- case closed Treated by [facility] rheumatology with spotty therapy with isoniazid. From 12/08/21 she picked up every other month. Was to be completed 02/09/23 Patient's fill history for isoniazid is as follows all for 30 day supplies: 12/08/21 02/20/22 03/28/22 04/24/22 09/10/22 11/01/22 She has not been able to comply with complete of therapy despite extensive social services coordinator. Assessment & Plan (05/15/2023 1:08 PM EDT): TB clinic NOS x 3- case closed Treated by [facility] rheumatology with spotty therapy with isoniazid. From [...] with complete of therapy despite extensive social services coordinator. Medically noncompliant 10/17/2022 Overview (05/15/2023): Patient is not able to follow reasoning for medications. Ongoing chanllaenge. Assessment & Plan (01/16/2024 10:43 AM EDT): Patient is not able to follow reasoning for medications. Ongoing chanllaenge. Assessment & Plan (05/15/2023 10:02 AM EDT): Patient is not able to follow reasoning for medications Ongoing chanllaenge. Seropositive rheumatoid arthritis 10/17/2022 Overview (10/07/2024): Diagnosed 11/2021. Seen by rheumatology, Rc Schwab MD with [facility] 03/28/2022. -She had a positive response to prednisone and would need to be transitioned to medications that would have less prison toxicity such as methotrexate. However, it is [...] I explained the disease process to the FLOOR SCRAPER and the need for certain medication. The FLOOR SCRAPER will try to talk with her and [...] I explained the disease process to the FLOOR SCRAPER and the need for certain medication. The FLOOR SCRAPER will try to talk with her and [...] recommendations which pt has not done historically Has follow-up with [employer] in October 2024. Assessment & Plan (10/07/2024 12:05 PM EST): Diagnosed 11/2021. Seen by rheumatology, Rc Schwab MD with [facility] 03/28/2022. -She had a positive response to prednisone and would need to be transitioned to medications that would have less prison toxicity such as methotrexate. However, it is [...] I explained the disease process to the FLOOR SCRAPER and the need for certain medication. The FLOOR SCRAPER will try to talk with her and [...] I explained the disease process to the FLOOR SCRAPER and the need for certain medication. The FLOOR SCRAPER will try to talk with her and [...] recommendations which pt has not done historically Has follow-up with [employer] in October 2024. Assessment & Plan (06/16/2024 5:54 AM EST): Diagnosed 11/2021. Seen by rheumatology, Rc Schwab MD with [facility] 03/28/2022. -She had a positive response to prednisone and would need to be transitioned to medications that would have less prison toxicity such as methotrexate. However, it is [...] is treating her RA with prednisone from [place]. She has not demonstrated ability to comply [...] I explained the disease process to the FLOOR SCRAPER and the need for certain medication. The FLOOR SCRAPER will try to talk with her and [...] I explained the disease process to the FLOOR SCRAPER and the need for certain medication. The FLOOR SCRAPER will try to talk with her and [...] Seen by rheumatology, Rc Schwab MD with [facility] 03/28/2022. -She had a positive response to prednisone and would need to be transitioned to medications that would have less prison toxicity such as methotrexate. However, it is [...] is treating her RA with prednisone from [place]. She has not demonstrated ability to comply [...] I explained the disease process to the FLOOR SCRAPER and the need for certain medication. The FLOOR SCRAPER will try to talk with her and [...] I explained the disease process to the FLOOR SCRAPER and the need for certain medication. The FLOOR SCRAPER will try to talk with her and [...] Seen by rheumatology, Rc Schwab MD with [facility] 03/28/2022. -She had a positive response to prednisone and would need to be transitioned to medications that would have less prison toxicity such as methotrexate. However, it is [...] is treating her RA with prednisone from [place]. She has not demonstrated ability to comply with DMARD regimen and it is unlikely she will complete INH therapy. Assessment & Plan (11/20/2022 10:01 AM EDT): Diagnosed 11/2021. Seen by rheumatology, Rc Schwab MD with [facility] 03/28/2022. She had a positive response to prednisone and would need to be transitioned to medications that would have less prison toxicity such as methotrexate. However, it is [...] 04/02/22. Severe aortic valve stenosis 10/17/2022 Overview (12/28/2024): Pt seen Dr. Orellana on 04/10/22. Echocardiagram [...] She is asymptomatic. I called her [facility] respiratory care specialist Deyanira Becker [phone] on 03/07/23 and left message requesting call back to try and coordinate intervention. Ultimately we may have to file with elder services for self neglect if she can't demonstrate she understands risk and refuses procedure. Seen by cardiology 10/04/24 Crystal Nixon in hospital for nausa and vomiting 09/2024 High sensitivity troponins are within range. Per last echocardiogram in 2022, LVEF is 60-65%. Severe aortic stenosis with a mean gradient of 63 mm Hg and valve area of 0.4 cm2. Not followed up since. Abnormal EKG could be related to progression of aortic stenosis/LV strain pattern. Concurrent coronary disease is possible. Unfortunately, no meaningful conversation is possible and she constantly relatesto God taking care of her. It does not appear that she is in a position to understand cardiac interventions. Will need to discuss with the next of kin, if any available. Recent admitted at [facility] 10/03-10/05 for Dx aortic stenosis and schizophrenia, troponin at baseline and negative D-dimer. Has follow-up with director talent management on November 04 2024. -seen by Dr. Venegas 10/25/24 discussed in detail about aortic valve stenosis and potential consequences. We discussed in detail about different options and the pros and cons. After discussion the patient has decided to proceed with transcatheter aortic valve replacement. I have quoted her risk of bleeding, vascular injury, stroke, and pacemaker placement. She understands all the risks and benefits. We will arrange a TAVR protocol CT scan for her. She will be seen by Cardiothoracic surgery in consultation. After that we will discuss in heart team. Assessment & Plan (10/07/2024 12:07 PM EST): Pt seen Dr. Orellana on 04/10/22. [...] fesible. She is asymptomatic. I called her [facility] respiratory care specialist Deyanira Becker [phone] on 03/07/23 and left message requesting call back to try and coordinate intervention. Ultimately we may have to file with elder services for self neglect if she can't demonstrate she understands risk and refuses procedure. Seen by cardiology 10/04/24 Crystal Nixon in hospital for nausa and vomiting 09/2024 High sensitivity troponins are within range. Per last echocardiogram in 2022, LVEF is 60-65%. Severe aortic stenosis with a mean gradient of 63 mm Hg and valve area of 0.4 cm2. Not followed up since. Abnormal EKG could be related to progression of aortic stenosis/LV strain pattern. Concurrent coronary disease is possible. Unfortunately, no meaningful conversation is possible and she constantly relatesto God taking care of her. It does not appear that she is in a position to understand cardiac interventions. Will need to discuss with the next of kin, if any available. Recent admitted at [facility] 10/03-10/05 for Dx aortic stenosis and schizophrenia, troponin at baseline and negative D-dimer. Has follow-up with director talent management on November 04 2024. Assessment & Plan (06/16/2024 5:53 AM EST): [...] She is asymptomatic. I called her [facility] respiratory care specialist Deyanira Becker [phone] on 03/07/23 and left message requesting call [...] fesible. She is asymptomatic. I called her [facility] respiratory care specialist Deyanira Becker [phone] on 03/07/23 and left message requesting call [...] fesible. She is asymptomatic. I called her [facility] respiratory care specialist Deyanira Becker [phone] on 03/07/23 and left message requesting call [...] schizophrenia 12/04/2021 Overview (01/16/2024): Currently with Mara therapist. She would benefit [...] elder services for self neglect. Therapist Mara [phone] Assessment & Plan (06/16/2024 5:55 AM EST): [...] elder services for self neglect. Therapist Mara [phone] Assessment & Plan (01/16/2024 10:43 AM EDT): [...] elder services for self neglect. Therapist Mara [phone] Assessment & Plan (05/15/2023 10:03 AM EDT): [...] elder services for self neglect. Therapist Mara [phone] Assessment & Plan (11/21/2022 10:06 AM EDT): [...] elder services for self neglect. Therapist Mara [phone] Elevated levels of transaminase & lactic acid de hydrogenase 05/22/2013 Fibromyalgia 03/18/2013 Pain in wrist 05/16/2012 Dyslipidemia 01/28/2012 Overview (12/28/2024): No statin given transaminitis of unclear etiology and noncompliance with medications. life-style modification discussed. Lab Results Component Value Date CHOL 295 (H) 01/13/2024 TRIG 210 (H) 01/13/2024 HDL 47 01/13/2024 LDLCHOLCAL 206 (H) 01/13/2024 -continue lifestyle modification -she has not demonstrated ability to take [...] NOS x 2- case closed Treated by [facility] rheumatology completed therapy with isoniazid. From 12/08/21 she picked up every other month. Was to be completed 02/09/23 ??Patient's fill history for isoniazid is as follows all for 30 day supplies: ? ? 12/08/21 ? ? 02/20/22 ? ? 03/28/22 ? ? 04/24/22 ? ? 09/10/22 ? ? 11/01/22 Encounters Date Type Department Care Team Description 12/28/2024 11:00 AM EDT Office Visit [facility] [address] [place] [id number] Elidia Shepherd MD Dyslipidemia (Primary Dx); Hypertension, unspecified type; Severe aortic valve stenosis; Seropositive rheumatoid arthritis (CMS/HCC); Colon cancer screening; Breast cancer screening by mammogram; Complex care coordination; Dietary counseling; Exercise counseling; Overweight; Paranoid schizophrenia (CMS/HCC); Positive TB test 12/28/2024 Telephone [facility] [address] [place] [phone] Elidia Shepherd MD 12/28/2024 Travel 12/25/2024 Telephone [facility] [address] [place] [phone] Elidia Shepherd MD CHART PREP 11/13/2024 10:20 AM EDT [facility] [address] [address] Eric Nair MD Seropositive rheumatoid arthritis ([facility]/HCC) (Primary Dx); Hypertension, unspecified type 11/10/2024 Telephone [facility] [address] [place] [phone] Elidia Shepherd MD Medication Question 11/02/2024 11:00 AM EDT [facility] [address] [address] Citlaly Schaeffer MD Arthralgia of both hands (Primary Dx) 10/09/2024 10:30 AM EST Office Visit [facility] [address] [place] [address] Rupa Marc ANP Severe aortic valve stenosis (Primary Dx); Hospital discharge follow-up; Mixed hyperlipidemia; Right wrist pain 10/09/2024 Travel 10/07/2024 11:20 AM EST Office Visit [facility] [address] [place] [address] Elidia Shepherd MD Severe aortic valve stenosis (Primary Dx); Seropositive rheumatoid arthritis (CMS/HCC) 10/07/2024 Telephone [facility] [address] [place] [address] Eliza Hernandez RN Hospital Follow-up 10/03/2024 Orders Only GENERIC EXTERNAL DATA DEPARTMENT Provider, Generic External Data from Last 3 Months Social History Tobacco [...] Mass Index 25.45 12/28/2024 10:29 AM EDT Plan of Treatment Health Maintenance Due Date Last Done Comments CT Colonography 1950 Colonoscopy 1950 Colorectal Cancer Screening 1950 FIT DNA/Cologuard 1950 FIT 1950 FOBT 1950 Sigmoidoscopy 1950 Mammogram 05/07/2019 05/07/2017 DTaP/Tdap/Td Vaccines (1 - Tdap) 01/15/2025 Postponed from 1970 (Patient Refused) Pneumococcal Vaccine: 50+ Years (1 of 2 - PCV) 01/15/2025 Postponed from 1970 (Patient Refused) RSV Patients and Patients Aged 60 years or older (1 - Risk 60-74 years 1-dose series) 01/15/2025 Postponed from 2011 (Patient Refused) Zoster Vaccines (1 of 2) 01/15/2025 Pos tponed from 2001 (Patient Refused) Influenza Vaccine (#1) 2025 Postp oned from 04/12/2024 (Patient Refused) COVID-19 Vaccine (1 - 2023-2 5 season) 2025 Postponed from 04/12/2024 (Patient Refused) Alcohol/Substance Use Screening 12/28/2025 12/28/2024 Depression Screening 12/28/2025 12/28/2024, 12/28/2024 Tobacco Screening 12/28/2025 12/28/2024 Lipid Panel 01/12/2029 01/13/2024, 06/20/2020 Hepatitis C Screening Completed 11/21/2021 SDOH Screening Discontinued 01/16/2024 HIB Vaccines Aged Out No longer eligi [...] patient's age to complete this topic Meningococcal B Vaccine Aged Out No l onger eligible based on patient's age to complete [...] Dyslipidemia HM HEPATITIS C ANTIBODY Routine 11/21/2021 HM MAMMOGRAPHY Routine 05/07/2017 from Last 3 Months or Most Recently Relevant to Health Maintenance Results * Urinalysis w/reflex microscopic (10/03/2024 9:03 PM EST) Color Urine Yellow [facility] Appearance Urine Clear [facility] PH >=9.0 5.0 - 9.0 [facility] Glucose Urine UA Negative Negative mg/dL [facility] Urine Blood Negative Negative [facility] Specific [place] - Urine 1.010 1.005 - 1.025 [facility] Urine Protein Negative Neg-Trace mg/dL [facility] Urine Ketones Negative Negative mg/dL [facility] Nitrite Urine Negative Negative [facility] Leukocyte Esterase Urine Negative Negative [facility] 10/03/2024 9:03 PM EST 10/03/2024 9:06 PM EST Narrative [facility] - 10/03/2024 9:11 PM EST [id number], Clean Catch us Generic External Data Provider LAB URINE ORDERAB LES Final Result Performing Organization Address [facility] Co de Phone Number [facility] [address] [place] [phone] * D Dimer High Sensitivity (10/03/2024 8:02 PM EST) D Dimer High Sensitivity <150 NG/ML [facility] Comment:D-DIMER HS REFERENCE RANGENote: Our [...] ORDERAB LES Final Result Performing Organization Address [facility]/ZIP Co de Phone Number [facility] [address] [place] [phone] * High Sensitivity Troponin I (10/03/2024 8:02 PM EST) Pathologist [facility] TROPONIN I HIGH SENSITIVITY 8.8 <3.5 - 17.0 ng/L [facility] Comment:The Vazquez high sens itivity Troponin-I results should beused in conjunction with other diagnostic information suchas ECG, clinical observations and information, and patientsymptoms to aid in the diagnosis of [place]. 10/03/2024 8:02 PM EST 10/03/2024 8:17 PM EST us Generic External Data Provider LAB BLOOD ORDERAB LES Final Result [facility] [address] [place] [address] [phone] * (ABNORMAL) Lipid Panel, Standard (01/13/2024 8:32 AM EDT) Pathologist [facility] [place] Triglycerides 210(H) <150 mg/dL [facility] Comment:Desirable Triglyceri de: less than 150 mg/dLBorderline High Triglyceride 150-199 mg/dLHigh Triglyceride: 200-499 mg/dLVery High Triglyceride: greater than or equal to 5OO mg/dL Cholesterol 295(H) <200 mg/dL [facility] Comment:Desirable Cholestero l: less than 200 mg/dLBorderline High Cholesterol: 200-239 mg/dLHigh Cholesterol: greater than 239 mg/dL LDL Cholesterol Calculated 206(H) <100 mg/dL [facility] Comment:Desirable LDL: less than 100 mg/dLNear Optimal/Above Optimal LDL: 110- 129 mg/dLBorderline High LDL: 130-159 mg/dLHigh LDL: 160-189 mg/dLVery High LDL: greater than or equal to 190 mg/dL HDL Cholesterol 47 >40 mg/dL [facility] Comment:Desirable HDL: great er than 40 mg/dL Note: This HDL assay may give artificially low results in patients with liver disease. Blood Venous blood specimen / Unknown 01/13/2024 8:32 AM EDT 01/13/2024 11:55 AM EDT Elidia Shepherd MD LAB BLOOD ORDERABLES Final Result [facility] [address] [place] [address] [phone] * Hepatitis C Antibody (11/21/2021) Hepatitis C Antibody Nonreactive Blood Historical Provider HEALTH MAINTENANCE Final Result * Mammography (05/07/2017) Mammogram BIRADS 1 Anatomical Region Laterality Modality Other Historical Provider HEALTH MAINTENANCE Final Result from Last 3 Months or Most Recently Relevant to Health Maintenance Insurance [facility] ASSISTED OPTIONS (O D-SNP) ELIZABET DAMON [id number] Advance Directives Documents on File Type Date Recorded Patient Fire Ranger Expl anation Advance Directives and Living Will 06/15/2024 Health Care Proxy 06/15/24 Care Teams Budget Coordinator Relationship Specialty Start Date End Date Benton, MD Elidia [address] [place] [phone] PCP - General Family Medicine 08/12/18 Elliott Orellana MD [address] [place], [place] [phone] Cardiology 10/07/24 Rell Venegas [address] [place] [address] [address] [place], [place] [phone] Cardiology 10/26/24
--- OUTSIDE RECORDS SUMMARY | 2024-12-28 11:52 | XMS_ITS | Encounter Summary ---
Author Organization [employer] Address [address] [facility] [address]t [place] [address] Care Team Providers Care Ballistics Expert Forensic Name Role Phone Elidia Shepherd MD Primary Care Provider [phone] Elliott Orellana MD Unavailable [phone] Rell Venegas Unavailable Encounter Details Date Type Department Care Team (Late st Contact Info) Description 11/23/2022 Orders Only [facility] MED[facility]INE [address] [place] [address] Terrie Siddiqi RN Social History Tobacco Use Types Packs/Day Years [...] documented as of this encounter Care Teams Ballistics Expert Forensic Relationship Specialty Start Date End Date Elidia Shepherd MD [address] [place] [phone] PCP - General Family Medicine 08/12/18 Elliott Orellana MD [address] [place] [phone] Cardiology 10/07/24 Rell Venegas [address] [place] [phone] Cardiology 10/26/24 documented as of this encounter
--- OUTSIDE RECORDS SUMMARY | 2024-12-28 11:52 | XMS_ITS | Clinical Summary ---
Author Organization [facility] Address [address] [place] [address] Care Team Providers Care Intelligence Support Officer Name Role Phone Pcp, No Primary Care Provider Unavailabl e Allergies No known active allergies Medications acetaminophen (TYLENOL) 500 MG tablet Take 1 tablet (500 mg total) by mouth every 4 (four) hours as needed for mild pain. Active Bacitracin-Poly myxin B (SM Double Antibiotic) [id number] UNIT/GM Ointment APPLY TO THE AFFECTED AREA(S) TOPICALLY 1-2 TIMES DAILY 3 Active Calcium Carb-Cholecalci ferol (Oyster Shell Calcium w/D) 500-5 MG-MCG Tab Take 1 tablet by mouth 2 (two) times a day. 3 Active losartan-hydroC HLOROthiazide (HYZAAR) 50-12.5 MG per tablet Take 1 tablet by mouth daily. 3 Active SODIUM FLUORIDE, DENTAL GEL, 1.1 % Gel USE DIRECTED BEFORE BEDTIME 3 Active amLODIPine (NORVASC) 5 MG tablet Take 1 tablet (5 mg total) by mouth. 3 Active predniSONE (DELTASONE) 5 MG tablet Take 1 tablet (5 mg total) by mouth 2 (two) times a day. With food. Active amoxicillin-cla vulanate (AUGMENTIN) 875-125 MG per tabletIndicatio ns:Dental abscess Take 1 tablet by mouth 2 (two) times a day. 14 tablet 3 Active Active Problems Problem Noted Date Diagnosed [...] place to sleep or slept in a assisted (including now)? No 05/13/2023 Comments Unknown Sex and Gender Information Value Date Recorded Sex Assigned at Female 05/11/2023 12:15 AM EDT Legal Sex Female 3:23 PM EDT Gender Identity Female 05/11/2023 12:15 AM [...] Density (Females,Ag es 65 and older) 2016 COVID-19 Vaccine ( - 2023-2 5 season) 2024 Influenza Vaccine 03/12/2025 RSV Vaccine 60 years and old er and Patients (1 - 1-dose 75+ series) 2026 Hepatitis B Vaccines Aged Out No long er eligible based on patient's age to complete this topic Insurance MISC MGD MEDICARE OUT OF NETWORK Advance Directives * Full Code (Latest Code Status on File) Date Activated Date Inactivated Comments 05/11/2023 5:58 AM Question Answer Comments Decision Thoroughly Discussed with: Patient Care Teams Intelligence Support Officer Relationship Specialty Start Date End Date Pcp, No PCP - General General Medicine 05/11/23
--- OUTSIDE RECORDS SUMMARY | 2024-12-28 11:53 | XMS_ITS | Encounter Summary ---
Author Organization [employer] Address [address] [facility] 7[address] [place] [address] Care Team Providers Care Dental Hygienist Name Role Phone Elidia Shepherd MD Primary Care Provider [phone] Elliott Orellana MD Unavailable [phone] Rell Venegas Unavailable Encounter Details Date Type Department Care Team (Late st Contact Info) Description 12/28/2024 Telephone [facility] MEDICINE [address] [place] [address] Elidia Shepherd MD [address] [place] [address] Social History Tobacco Use Types Packs/Day Years [...] as if somethi ng awful might happen 12/28/2024 11:08 AM Lili Paiz MA LAZARUS-7 Total Score 12/28/2024 11:08 AM EDT Lili Preston MA documented as of this encounter Miscellaneous Notes * Telephone Encounter - Elidia Shepherd MD - 12/28/2024 10:57 AM EDT Please refer to Tb clinic. Pt is being considered for immunosuppressants from rheumatology. In pastTB clinic NOS x 3- case closed. Treated by [facility] rheumatology with spotty therapy with isoniazid. From 12/08/21 shepicked up every other month. Was to be completed 02/09/23 Patient's fill history for isoniazid is as follows all for 30 day supplies: 12/08/21 02/20/22 03/28/22 04/24/22 09/10/22 11/01/22 She has not been able to comply with complete of therapy despite extensive adoption social worker. She now has an excellent SENIOR SUPPLIER QUALITY ENGINEER, Tanvi who can monitor her meds. CXR is pending, done today documented in this encounter Plan of Treatment Not on file documented as of this encounter Visit Diagnoses Not on filedocumented in this encounter Additional Health Concerns Assessment Noted Time PHQ-9 Depression Total Score: 20 025 11:07 AM EDT documented as of this encounter Care Teams Dental Hygienist Relationship Specialty Start Date End Date Elidia Shepherd MD [address] [place] [phone] PCP - General Family Medicine 08/12/18 Elliott Orellana MD [address] [place] [address] Cardiology 10/07/24 Rell Venegas [address] [place] [address] Cardiology 10/26/24 documented as of this encounter
[2024-12-28 12:58] LABS: MANUAL DIFF FLAG NO
[2024-12-28 13:20] LABS: Basophils Percent Auto 0.4 % (0-2); Eosinophils Absolute Auto 0.2 X10*3/uL (0.0-0.4); Eosinophils Percent Auto 1.5 % (0-4); Hematocrit 41.4 % (37.0-47.0); Hemoglobin 13.9 g/dl (12.0-16.0); Imm Gran Abs Auto 0.08 X10*3/uL (0.00-0.03); Imm Gran Pct Auto 0.8 % (0.0-0.4); Lymphocytes Absolute Auto 2.5 X10*3/uL (1.2-4.9); Lymphocytes Percent Auto 25.6 % (20-40); Mean Corpuscular HGB Conc 33.6 g/dl (31.0-35.0); Mean Corpuscular Hemoglobin 27.3 pg (27.0-33.0); Mean Corpuscular Volume 81.2 fL (80.0-98.0); Mean Platelet Volume 11.4 fL (9.4-12.3); Monocytes Absolute Auto 0.6 X10*3/uL (0.1-1.2); Monocytes Percent Auto 6.3 % (2-11); Neutrophils Absolute Auto 6.5 x10*3/uL (2.0-8.3); Neutrophils Percent Auto 65.4 % (45-73); Platelet Count 249 X10*3/uL (160-400); Red Cell Distribution Width 14.2 % (11.0-16.0); White Blood Count 9.9 X10*3/uL (4.8-10.8)
[2024-12-28 13:35] LABS: Alanine Aminotransferase 24 U/L (0-31); Albumin Level 4.1 g/dL (3.5-5.0); Alkaline Phosphatase 103 U/L (39-117); Anion Gap 12 (12-20); Aspartate Amino Transferase 22 U/L (5-31); Bilirubin Direct < 0.2 mg/dL (0.0-0.5); Bilirubin Total 0.2 mg/dL (0.0-1.0); Blood Urea Nitrogen 21 mg/dL (9-16); Calcium 9.9 mg/dL (8.4-10.2); Carbon Dioxide 25 mmol/L (22-29); Chloride 107 mmol/L (96-108); Cholesterol 299 mg/dL (<200); Estimated Glomerular Filt Rate > 60; Glucose Random 105 mg/dL (60-115); HDL Cholesterol 38 mg/dL (>40); LDL Cholesterol Calculated 186 mg/dL (<100); Magnesium 2.1 mg/dL (1.6-2.6); Potassium 3.7 mmol/L (3.3-5.1); Sodium 140 mmol/L (135-145); Total Protein 6.6 g/dL (6.5-8.0); Triglycerides 379 mg/dL (<150)
[2024-12-28 13:52] LABS: TSH reflex Free T4 1.61 uIU/mL (0.32-4.0); Vitamin D 25-OH Total 51.7 ng/mL (>30)
== END 2024-12-28 11:05 | disposition home or self-care (01) ==
LOC: HO.HHCL 11:04
PROVIDERS: Visit Provider Family Medicine
DX: I35.0 Nonrheumatic aortic (valve) stenosis (principal); M05.9 Rheumatoid arthritis with rheumatoid factor, unspecified; E78.5 Hyperlipidemia, unspecified; R76.11 Nonspecific reaction to tuberculin skin test without active tuberculosis
CPT/HCPCS: 36415; 71046; 80048; 80061; 80076; 82306; 83735; 84443; 85025

== ENCOUNTER → 2024-12-28 12:15 | Outpatient (BNV) | payer OTHER, SELFPAY | PROVIDERS: Visit Provider Radiology Diagnostic Radiology | DX: R76.11 Nonspecific reaction to tuberculin skin test without active tuberculosis (principal) | CPT/HCPCS: 71046 ==

== ENCOUNTER 2025-02-01 09:57 | Outpatient (AMB) | payer OTHER, SELFPAY ==
--- NOTE | 2025-02-01 10:00 | MHC.OFFVIS ---
Vital Signs 02/01/25 10:04 Height 5 ft 6 in Weight 124 lb 12.506 oz BMI 20.1 BP 110/64 Blood Pressure Location Lt brachial Position Sitting Pulse 73 Pulse Source Monitor Intake Visit Reasons: 3 mth f/up Intake Note: 3 mth f/up Nail Galvanizer Required: Yes Nail Galvanizer Language: Snow Blower Name: christiana/rwandan/mora Accompanied by: Self / Same As Patient Allergies No Known Allergies Allergy (Verified 10/03/24 17:08) Medication List - Last Reconciled 02/01/25 by Rell Venegas MD arm brace (Wrist Brace) use on the wrists at night arm brace (Wrist Brace) As directed leg brace (SOUTH Knee Brace) As directed losartan 50 mg PO DAILY prednisone 5 mg PO BID HPI Comments Details: 74-year-old female from [facility] who is referred to us for severe aortic valve stenosis. Recently she presented to [facility] in September of 2024 for elevated blood pressure, vomiting dizziness and lethargy. She had diffuse T-wave inversion in the precordial leads which were new compared to previous ECG. Echocardiography showed normal left ventricular systolic function without any regional wall motion abnormalities, low normal right ventricular function, severe aortic valve stenosis with peak velocity 5.54 m/sec, peak gradient of 123 mm Hg and mean gradient of 74 mm Hg. Aortic valve area calculated as 0.47 cm2. ECG changes were thought to be related to left ventricular hypertrophy and severe aortic valve stenosis. She has psych issues with history of schizophrenia. She has anxiety. She does not like talking about her psych issues and was tearful the moment I started talking about that. She is denying any chest pain or shortness of breath in her day-to-day life. No syncope in the past. She has known history of rheumatoid arthritis and has been using prednisone 5 mg twice a day. She is saying that she gets prednisone and takes it on her own from [facility]. 02/01/2025: She is here for follow-up. She underwent TAVR protocol CT scan which showed bicuspid aortic valve with fusion of left and right cusps. She also had annular calcification which is more than 5 mm nodular calcium. She continues to have no symptoms. Denying chest pain or shortness of breath. No syncope. As mentioned above her mean gradient was severely elevated at 74 mm Hg. 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 Mother No problems noted. Social History Household Members: None Housing: Apartment Are you a primary companion caregiver to a significant other at home: No Do you presently have visiting nurse or other home services: Yes 75 years or older and lives alone: No Alcohol intake: former Patient Tobacco Use Status: Former Tobacco user e-Cigarette/Vaping Use: Never Used service: No Current occupational status: disabled Review of Systems Const Denies chills, Denies fatigue, Denies fever(s), Denies frequent falls, Denies weakness, Denies weight gain and Denies weight loss ENT Denies dizziness Card Denies chest pain, Denies leg edema, Denies lightheadedness, Denies palpitations, Denies dyspnea and Denies dyspnea on exertion Resp Denies cough, Denies dyspnea and Denies dyspnea on exertion GI Denies hematochezia Musc Denies abnormal gait, Denies muscle weakness, Denies numbness, Denies radiating pain into limb and Denies tingling Neuro Denies abnormal gait, Denies dizziness, Denies frequent falls, Denies numbness, Denies tingling and Denies weakness Endo Denies fatigue and Denies palpitations Physical Exam Vital Signs: Last Vital Signs Pulse 73 02/01/25 10:04 BP 110/64 02/01/25 10:04 BMI result Body Mass Index 20.1 GENERAL APPEARANCE: in no acute distress, pleasant. NECK: No jugular venous distention. Systolic murmur radiating to the carotids. SKIN: no suspicious lesions, warm and dry. HEART: Ejection systolic murmur aortic area with absent 2nd heart sound. LUNGS: clear to auscultation bilaterally. ABDOMEN: soft, nontender. EXTREMITIES: no edema. PERIPHERAL PULSES: equal. NEUROLOGIC: No gross deficits, AAO X 3 Office Procedures EKG Details: Sinus rhythm 73 beats per minute, normal axis, lateral T-wave inversions, QTC 405 milliseconds. [id number], Complete Assessment & Plan Assessment & Plan (1) Hypertension: Code(s): I10 - Essential (primary) hypertension Category: Medical (2) Aortic stenosis, severe: Code(s): I35.0 - Nonrheumatic aortic (valve) stenosis Category: Medical Plan [age] year female who is here for follow-up. She has rheumatoid arthritis, hypertension and severe aortic valve stenosis. Mean gradient across aortic valve on previous echocardiography was 74 mm Hg. By TAVR protocol CT she has and we will calcification as well as bicuspid aortic valve with initiate of left and right cusps. I have reached out to TAVR coordinator at [facility] and it appears that the patient has seen Dr. Saucedo already. We will discuss in the heart team meeting this week about feasibility of transcatheter aortic valve replacement versus surgery. She has a bicuspid valve with nodular calcium in the annulus with high-risk for paravalvular leak. I have brought up surgery with her previously but that discussion did not go well. As we discuss her in the heart team meeting we will have a better management plan. Thank you for allowing me to participate in the care of your patient. Please feel free to contact me if you have any questions. Coding Level of Care Code Est Pt Level 4 (30840) Diagnoses Hypertension I10 Aortic stenosis, severe I35.0 CPT Codes EKG - CPT: 72434-[id number], Complete ([id number])
[2025-02-01 10:04] VITALS: BP 110/64; PULSE 73; BMI 20.1
--- OUTSIDE RECORDS SUMMARY | 2025-02-01 10:55 | XMS_ITS | Encounter Summary ---
Author Organization [employer] Address [address] [facility] [address] [place] [address] Care Team Providers Care Boiler Out Name Role Phone Elidia Shepherd MD Primary Care Provider [phone] Elliott Orellana MD Unavailable [phone] Rell Venegas Unavailable Reason for Visit * Reason Onset Date Comments Request For Order(s) 05/02/2023 Encounter Details Date Type Department Care Team (Late st Contact Info) Description 05/02/2023 Telephone [facility] MEDICINE [address] [place], [place] [phone] Elidia Shepherd MD [address] [place], [place] [phone] Request For Order(s) Social History Tobacco Use [...] - 05/02/2023 11:49 AM EDT Tc [facility] with [facility] requesting VNA orders as well as a dexa to be ordered by PCP due to a fall 04/30. Please contact ashlee at [phone] ext [phone] documented in this encounter Plan of Treatment Upcoming Encounters Date Type Department Care Team (Late st Contact Info) Description 04/05/2025 9:45 AM EDT Office Visit [facility] [address] [place] [address] Elidia Shepherd MD [address] [place] [address] documented as of this encounter Visit Diagnoses Not on filedocumented in this encounter Additional Health Concerns Assessment Noted Time PHQ-9 Depression Total Score: 0 11/22/19 23 9:33 AM EDT documented as of this encounter Care Teams Boiler Out Relationship Specialty Start Date End Date Elidia Shepherd MD [address] [place] [address] PCP - General Family Medicine 08/12/18 Elliott Orellana MD [address] [facility] [address] [place] [address] Cardiology 10/07/24 Rell Venegas [address] [place] [address] Cardiology 10/26/24 documented as of this encounter
== END 2025-02-01 10:47 | disposition home or self-care (01) ==
LOC: HO.HCS 09:57
PROVIDERS: PCP Family Medicine; Visit Provider Internal Medicine Cardiovascular Disease
DX: I10 Essential (primary) hypertension (principal); I35.0 Nonrheumatic aortic (valve) stenosis
CPT/HCPCS: 93010; 99214

== ENCOUNTER → 2025-02-01 09:57 | Outpatient (BNVA) | payer OTHER, SELFPAY | PROVIDERS: PCP Family Medicine; Visit Provider Internal Medicine Cardiovascular Disease | DX: I10 Essential (primary) hypertension (principal); I35.0 Nonrheumatic aortic (valve) stenosis | CPT/HCPCS: 93005; 99212 ==